=== PATIENT | male | born 1985 | race Caucasian/White ===

== ENCOUNTER 2019-12-28 11:33 | Emergency (ER) | payer BC, SELFPAY ==
[2019-12-28 12:26] VITALS: BP 132/79; PULSE 97; RESP 16; TEMP 37.3; O2SAT 98; BMI 36.6
[2019-12-28 12:56] LABS: Rapid Strep A Test Negative (Negative)
[2019-12-28 13:07] LABS: Influenza A by IFA Negative (Negative); Influenza B by IFA Negative (Negative)
--- NOTE | 2019-12-28 13:12 | ED_ITS ---
Entered by Lupe Arreguin, acting as scribe for Greer Alves Maritza Dec 28, 2019 11:33 HPI - Fever General: Chief Complaint: Fever Stated Complaint: Fever Time Seen by Provider: 12/28/19 13:12 Source: patient Mode of arrival: ambulatory Limitations: no limitations History of Present Illness: HPI Narrative: 34 yo Male presents to ED with complaint of cough, headache, congestion, and body aches. Pt states that this has been going on for 2 days. MD elicited complaint: fever Onset (ago): day(s) (2) Context: sick contacts and other(s) with similar symptoms Exacerbating factors: nothing Relieving factors: nothing Associated symptoms: Reports cough, headache(s), myalgias and nasal congestion; Deny abdominal pain, back/flank pain, chills, chest pain, diarrhea, dysuria, extremity pain, nausea or vomiting Treatments prior to arrival fever: none Review of Systems General: Reports: other (negative unless marked) Const: Reports: fever and body aches; Denies: chills, fatigue, malaise or diaphoresis Eyes: Denies: change in vision or blurry vision ENMT: Reports: nasal congestion Card: Denies: chest pain, palpitations, irregular heart rhythm, syncope, pre- syncope, shortness of breath on exertion or shortness of breath when lying down Resp: Denies: shortness of breath, productive cough, non-productive cough, wheezing, coughing up blood or chest congestion GI: Denies: abdominal pain, nausea, vomiting, vomiting blood, coffee grounds in vomit, diarrhea, constipation, cramping, blood in stool or black tarry stool : Denies: flank pain, difficulty urinating, painful urination, urinary frequency, urinary urgency, decreased urine ouput, urinary incontinence or blood in urine Musc: Denies: neck pain, back pain, extremity pain, extremity swelling, joint pain, joint swelling, joint warmth or joint stiffness Skin/Breast: Denies: rash, skin tenderness or yellow skin Neuro: Reports: headache Endo: Denies: excessive thirst, tired all the time, cold intolerance, excessive sweating, flushing or hot flashes Armaan/Lymph: Denies: easy bruising, easy bleeding, petechiae or enlarged lymph nodes All/Imm: Denies: hives, throat swelling, tongue swelling, facial swelling or acute wheezing PFS ED PFSH: Statuses (acute, chronic, etc) shown below reflect problem list status as previously entered and may not be historically accurate Social History Smoking and tobacco status: never smoked Physical Exam Const: COMMON NORMALS: no apparent distress, oriented x3, no limitations, healthy appearing and well nourished EXAM LIMITATIONS: no altered mental status GENERAL APPEARANCE: cooperative, well kempt and well developed ORIENTATION/CONSCIOUSNESS: Yes awake HENMT: COMMON NORMALS: normocephalic, head/scalp atraumatic, hearing grossly normal bilaterally, external ears normal, EAC's normal, external nose normal and moist oral mucous membranes HEAD & SCALP: normal to inspection, normocephalic and atraumatic FACE & SINUS: normal facial exam and face symmetric NOSE: external nose normal and nares normal EXTERNAL EAR: Yes external ears normal EXTERNAL AUDITORY CANAL: EAC's normal MOUTH: oral and palatal mucosa normal and tongue normal Eye: COMMON NORMALS: PERRL, EOMs intact bilaterally, conjunctivae normal and no scleral icterus GENERAL EYE: normal appearance of both eyes and normal light reflex CONJUNCTIVA: Yes conjunctivae normal SCLERA: sclerae normal CORNEA: Yes corneas normal PUPIL: Yes PERRL DIRECT OPHTHALMOSCOPY: Yes normal light reflex Neck/C-Spine: COMMON NORMALS: full ROM, no lymphadenopathy, supple, no meningeal signs and no JVD GENERAL: Yes normal visual inspection and Yes trachea midline CERVICAL SPINE: Yes cervical ROM normal Chest: COMMONS NORMALS: inspection of chest normal and palpation of chest normal Resp: COMMON NORMALS: normal respiratory effort, no retractions, no use of accessory muscles and clear to auscultation bilaterally EFFORT & INSPECTION: Yes able to speak in complete sentences AUSCULTATION: clear to auscultation bilaterally Cardio: COMMON NORMALS: no JVD, regular rate, regular rhythm, S1 normal heart sound, S2 normal heart sound, no gallops, no clicks, no murmurs and no rub JUGULAR VENOUS DISTENTION: no JVD RATE: regular rate RHYTHM: regular rhythm HEART SOUNDS: S1 normal and S2 normal GI: COMMON NORMALS: soft to palpation, non-tender, no hepatosplenomegaly and no masses INSPECTION: Yes normal to inspection PALPATION: Yes soft and Yes no hepatosplenomegaly : COMMON NORMALS: Yes no CVA tenderness BLADDER/KIDNEY EXAM: Yes no CVA tenderness Back/Pelvis: COMMON NORMALS: no CVA tenderness, thoracic and lumbar spine normal to inspection, no thoracic nor lumbar tenderness and thoraco-lumbar ROM normal Extremity: COMMON NORMALS: normal to inspection, full ROM, normal capillary refill, no joint enlargement, no clubbing, cyanosis or edema and no calf tenderness Neuro: COMMON NORMALS: oriented x3, CN's II-XII intact bilaterally, moves all extremities, no focal motor deficits and no sensory deficits noted MENINGEAL SIGNS: Yes no meningeal signs Psych: COMMON NORMALS: mental status grossly normal, thought process normal, cooperative, affect normal, speech normal and activity/motor behavior normal APPEARANCE: Yes well kempt SPEECH: Yes normal speech THOUGHT PROCESS: normal thought process Skin: COMMON NORMALS: no rashes or lesions noted, skin turgor normal, no jaundice, no petechiae and no mottling GENERAL SKIN EXAM: no rashes or lesions noted and turgor normal Course Vital Signs: Vital signs: Vital Signs Temperature 99.1 F 12/28/19 12:26 Pulse Rate 84 12/28/19 13:45 Respiratory Rate 18 12/28/19 13:45 Blood Pressure 141/83 12/28/19 13:45 Pulse Oximetry 98 12/28/19 13:45 MDM - Fever MDM Narrative: Medical decision making narrative: Mr. Arrington signs and symptoms are consistent with flu. His flu test is negative here but he comes in with 2 of his children who have similar symptoms and they test positive for influenza. I am going to go ahead and place him on Tamiflu and give him time off work. He agrees to return should his symptoms change or worsen. Lab Data: Labs: Lab Results 12/28/19 12/28/19 Range/Units 12:33 12:33 Influenza Type A A g Negative (Negative) POC Influenza B Ag Negative (Negative) Group A Strep Rapi d Negative (Negative) Discharge Plan Discharge Patient Disposition: Home, Self-Care Clinical Impression: Influenza Condition: Stable Prescriptions: New Tamiflu 75 mg capsule 75 mg PO Q12H 5 Days Qty: 10 RF: 0 Discharge Orders: Discharge Order (Routine); Ordered 12/28/19 Ordered By: Greer Alves Referrals: Deedee Lawrence DO [Physician] - 4-7 days Discharge Diet: Advance as tolerated Discharge Activity: Increase activity as tolerated Patient Instructions: Influenza (ED) Activity Restrictions/Additional Instructions: Please return to the ER immediately for any of the signs or symptoms listed on your discharge instruction sheets, worsening/changing of your symptoms, you are not getting better as quickly as expected, or for ANY other cause or concerns. Discharge Date/Time: 12/28/19 13:26 Coding Level of Care Code ED Data Support Specialist for Chg Fwd Exam Problem Focused The documentation recorded by the Kallie santiago Carmen, accurately reflects the service I personally performed and the decisions made by Joselyn castanon Eli N Dec 28, 2019 11:33
[2019-12-28 13:45] VITALS: BP 141/83; PULSE 84; RESP 18; O2SAT 98
== END 2019-12-28 13:26 | disposition home or self-care (01) ==
PROVIDERS: Nurse Practitioner Family; Emergency Provider Emergency Medicine
DX: J11.1 Influenza due to unidentified influenza virus with other respiratory manifestations (principal)
CPT/HCPCS: 87081; 87804; 87880; 99282

== ENCOUNTER 2020-04-18 14:23 | Emergency (ER) | payer BC, SELFPAY ==
[2020-04-18 15:01] VITALS: BP 124/81; PULSE 63; RESP 18; TEMP 36.8; O2SAT 98; BMI 31.1
== END 2020-04-18 16:27 | disposition left against medical advice (07) ==
PROVIDERS: Emergency Provider Emergency Medicine
DX: Z53.21 Procedure and treatment not carried out due to patient leaving prior to being seen by health care provider (principal)
CPT/HCPCS: 99281

== ENCOUNTER 2020-07-18 13:14 | Emergency (ER) | payer BC, SELFPAY ==
[2020-07-18 13:46] VITALS: BP 124/84; PULSE 60; RESP 14; TEMP 36.7; O2SAT 98; BMI 37.2
--- NOTE | 2020-07-18 13:56 | ED_ITS ---
HPI - Extremity Problem General: Chief complaint: Extremity Problem,Nontraumatic Stated complaint: finger swelling Time Seen by Provider: 07/18/20 13:49 History of Present Illness: HPI Narrative: Base of right index finger had a callus that developed an infection for couple days ago now is red and sore and tender. Tetanus is up-to-date was done 6 months ago MD Complaint: extremity swelling Onset (ago): day(s) Pain Consistency: constant Location: right and upper extremity Quality: aching Relieving factors: nothing Exacerbating factors: nothing Associated symptoms: Reports no associated symptoms; Deny chest pain, fever(s) or rash Review of Systems Const: Denies: fever(s), chills or body aches Eyes: Denies: change in vision or blurry vision ENMT: Denies: throat pain or nasal congestion Card: Denies: chest pain or dyspnea on exertion Resp: Denies: dyspnea, productive cough or non-productive cough GI: Denies: abdominal pain, nausea or vomiting : Denies: difficulty urinating Musc: Reports: extremity pain (Right index finger) Skin/Breast: Denies: rash Neuro: Denies: headache(s) Psych: Denies: anxiety or depression Armaan/Lymph: Denies: easy bruising PFSH ED PFSH: Social History Smoking and tobacco status: never smoked Physical Exam 2 Const: COMMON NORMALS: no acute distress, average body habitus and patient oriented x3 HENMT: COMMON NORMALS: normocephalic HEAD & SCALP: normal to inspection and normocephalic FACE & SINUS: normal facial exam Eye: COMMON NORMALS: conjunctivae normal GENERAL EYE: appearance normal, both eyes and all related structures CONJUNCTIVA: Yes conjunctivae normal Neck/C-Spine: COMMON NORMALS: no JVD Chest: COMMONS NORMALS: normal inspection of the chest Resp: COMMON NORMALS: normal respiratory effort and clear to auscultation bilaterally AUSCULTATION: clear to auscultation bilaterally Cardio: COMMON NORMALS: no JVD Extremity: COMMON NORMALS: normal to inspection and full ROM RIGHT UPPER EXTREMITY: Yes hand & digits (Right index finger with a sore and and erythema to the base on the underside of the finger palmar aspect tender to the touch no drainage no abscess) Neuro: COMMON NORMALS: patient oriented x3 Course Vital Signs: Vital signs: Vital Signs Temperature 98.0 F 07/18/20 13:46 Pulse Rate 60 07/18/20 13:46 Respiratory Rate 14 07/18/20 13:46 Blood Pressure 124/84 07/18/20 13:46 Pulse Oximetry 98 07/18/20 13:46 Discharge Plan Discharge Patient Disposition: Home Clinical Impression: Cellulitis Qualifiers: Site of cellulitis: extremity Site of cellulitis of extremity: finger Laterality: right Qualified Code(s): L03.011 - Cellulitis of right finger Condition: Stable Prescriptions: New Bactrim DS 800-160 mg tablet 1 tab PO BID 10 Days Qty: 20 RF: 0 tramadol 50 mg tablet 50 mg PO Q6H PRN (Reason: pain) Qty: 14 RF: 0 Discharge Orders: Discharge Order (Routine); Ordered 07/18/20 Ordered By: Zach Mccann Discharge Diet: Usual diet Discharge Activity: Increase activity as tolerated Patient Instructions: Cellulitis (ED) Activity Restrictions/Additional Instructions: Follow-up with medical provider as directed. Take medications as prescribed. Return to the ER or your medical provider if condition worsens. Please read and understand discharge instructions. If any questions ask please. Coding Level of Care Code ED Purchasing Administrative Assistant for Adal Fwratna Exam Comprehensive
== END 2020-07-18 14:04 | disposition home or self-care (01) ==
LOC: ER 14:07
PROVIDERS: Emergency Provider Nurse Practitioner Family
DX: L03.011 Cellulitis of right finger (principal)
CPT/HCPCS: 12345; 99281

== ENCOUNTER 2020-08-26 17:40 | Emergency (ER) | payer BC, SELFPAY ==
[2020-08-26 18:05] VITALS: BP 137/80; PULSE 100; RESP 16; TEMP 37.3; O2SAT 100; BMI 36.6
[2020-08-26] MEDS: sulfamethoxazole-trimeth DS 160-800 mg Tablet 1 TAB PO (19:20)
[2020-08-26] MEDS: lidocaine 1% INJ 20 mL 3 ML INTRADERMA (19:20)
--- NOTE | 2020-08-26 19:43 | W.ED.SKABFB ---
HPI - Skin/Abscess/Foreign Bdy General: Chief complaint: Skin/Abscess/Foreign Body Stated complaint: POSS SPIDER BITE/LLE Time Seen by Provider: 08/26/20 19:12 History of Present Illness: HPI narrative: Left leg behind the knee has redness swelling and tenderness possible brown recluse bite. complaint: insect bite/sting Onset (ago): day(s) Tetanus up to date: yes Location: LLE Severity: moderate Severity scale (1-10): 5 Quality: aching Associated symptoms: Reports no associated symptoms; Deny chills, fever(s), nausea or vomiting Treatments prior to arrival: attempted to drain pus at home Review of Systems Const: Denies: fever(s), chills or body aches Eyes: Denies: change in vision or blurry vision ENMT: Denies: throat pain or nasal congestion Card: Denies: chest pain or dyspnea on exertion Resp: Denies: dyspnea, productive cough or non-productive cough GI: Denies: abdominal pain, nausea or vomiting : Denies: difficulty urinating Musc: Denies: extremity pain Skin/Breast: Reports: skin tenderness and skin swelling (Behind left knee. Hard indurated does appear to be spider bite has a purple area to center I drained slight amount of pus out after lidocaine preparation); Denies: rash Neuro: Denies: headache(s) Psych: Denies: anxiety or depression Armaan/Lymph: Denies: easy bruising PFS ED PFSH: Social History Smoking and tobacco status: never smoked Physical Exam Const: COMMON NORMALS: no acute distress, average body habitus and patient oriented x3 HENMT: COMMON NORMALS: normocephalic HEAD & SCALP: normal to inspection and normocephalic FACE & SINUS: normal facial exam Eye: COMMON NORMALS: conjunctivae normal GENERAL EYE: appearance normal, both eyes and all related structures CONJUNCTIVA: Yes conjunctivae normal Neck/C-Spine: COMMON NORMALS: no JVD Chest: COMMONS NORMALS: normal inspection of the chest Resp: COMMON NORMALS: normal respiratory effort and clear to auscultation bilaterally AUSCULTATION: clear to auscultation bilaterally Cardio: COMMON NORMALS: no JVD, regular rate and regular rhythm RATE: regular rate RHYTHM: regular rhythm GI: COMMON NORMALS: Normal to inspection, nondistended, normoactive bowel sounds present Extremity: LEFT LOWER EXTREMITY: Yes upper leg (See review of system note on left leg redness swelling tenderness induration) Neuro: COMMON NORMALS: patient oriented x3 Procedures Abscess I/D Site: lower extremity Side (if applicable): left Local Anesthetic: lidocaine 1% Amount of anesthesia used (mL): 2 Technique: incised with #11 blade Amount of fluid expressed (mL): 2 Irrigation: Yes Packing used?: iodoform Course Vital Signs: Vital signs: Vital Signs Temperature 99.1 F 08/26/20 18:05 Pulse Rate 100 08/26/20 18:05 Respiratory Rate 16 08/26/20 18:05 Blood Pressure 137/80 08/26/20 18:05 Pulse Oximetry 100 08/26/20 18:05 Discharge Plan Discharge Patient Disposition: Home Clinical Impression: Cellulitis Qualifiers: Site of cellulitis: extremity Site of cellulitis of extremity: lower extremity Laterality: left Qualified Code(s): L03.116 - Cellulitis of left lower limb Condition: Stable Prescriptions: New Bactrim DS 800-160 mg tablet 1 tab PO BID 10 Days Qty: 20 RF: 0 tramadol 50 mg tablet 50 mg PO Q6H PRN (Reason: pain) Qty: 14 RF: 0 No Action tramadol 50 mg tablet 50 mg PO Q6H PRN (Reason: pain) Qty: 14 RF: 0 Discharge Orders: Discharge Order (Routine); Ordered 08/26/20 Ordered By: Zach Mccann Discharge Diet: Usual diet Discharge Activity: Increase activity as tolerated Patient Instructions: Cellulitis (ED) Activity Restrictions/Additional Instructions: Follow-up with medical provider as directed. Take medications as prescribed. Return to the ER or your medical provider if condition worsens. Please read and understand discharge instructions. If any questions ask please. Pull packing out 24 hours Stand Alone Forms: Work/School Release Discharge Date/Time: 08/26/20 20:02 Coding Level of Care Code ED Silk Screen Printing Racker for Adal Fwratna Exam Comprehensive
== END 2020-08-26 20:02 | disposition home or self-care (01) ==
PROVIDERS: Emergency Provider Nurse Practitioner Family
DX: L03.116 Cellulitis of left lower limb (principal)
CPT/HCPCS: 10060; 12345; 99281; 99283

== ENCOUNTER → 2021-01-10 11:25 | Outpatient (BNVA) | payer BC, SELFPAY | PROVIDERS: Visit Provider Nurse Practitioner Family | DX: Z20.822 Contact with and (suspected) exposure to COVID-19 (principal) | CPT/HCPCS: 87635 ==

== ENCOUNTER → 2021-02-11 16:07 | Outpatient (BNVA) | payer BC, SELFPAY | PROVIDERS: Visit Provider Nurse Practitioner Family | DX: M25.572 Pain in left ankle and joints of left foot (principal); L02.413 Cutaneous abscess of right upper limb | CPT/HCPCS: 73610; 87070; 87075; 87077; 87184; 87205 ==

== ENCOUNTER → 2021-03-06 11:40 | Outpatient (BNVA) | payer BC, SELFPAY | PROVIDERS: Visit Provider Family Medicine | DX: Z20.822 Contact with and (suspected) exposure to COVID-19 (principal) | CPT/HCPCS: 87635 ==

== ENCOUNTER 2021-04-30 07:05 | Inpatient (IN) | payer SELFPAY ==
[2021-04-30] VITALS (13 sets, daily range): BP systolic 112–124; BP diastolic 64–78; PULSE 73–88; RESP 16–22; TEMP 36.3–37.1; O2SAT 95–99; BMI 36.6
--- NOTE | 2021-04-30 07:08 | CTR_ITS ---
PROCEDURE INFORMATION: Exam: CTA Right Lower Extremity With Contrast Exam date and time: 04/30/2021 7:17 AM Age: 36 years old Clinical indication: Pain; Thigh; Right; Additional info: R leg only TECHNIQUE: Imaging protocol: CTA images of the Right lower extremity with intravenous contrast using CT angiography protocol. 3D rendering (Not supervised by radiologist): MIP and/or 3D reconstructed images were created by the technologist. Radiation optimization: All CT scans at this facility use at least one of these dose optimization techniques: automated exposure control; mA and/or kV adjustment per patient size (includes targeted exams where dose is matched to clinical indication); or iterative reconstruction. Contrast material: OMNI 350; Contrast volume: 95 ml; Contrast route: INTRAVENOUS (IV); COMPARISON: No relevant prior studies available. RADIATION DOSE METRICS: Total DLP (mGy-cm): 1536.52 FINDINGS: Vascular: Patency and normal caliber of the right lower extremity arteries. Bones/joints: No acute osseous pathology. Anatomic alignment. Lymph nodes: Right inguinal lymphadenopathy. Soft tissues: Extensive infiltration of subcutaneous fat in the right anterolateral pelvis, inguinal region, perineum, and medial thigh; along with skin thickening. No discrete soft tissue abscess is identified at this time. CT/[place] [id number] IMPRESSION: Extensive infiltration of subcutaneous fat in the right anterolateral pelvis, inguinal region, perineum, and medial thigh; along with skin thickening and inguinal lymphadenopathy. Radiation Dose CTDIVOL = (mGy): DLP = 1536.52 (mGy-cm)
--- NOTE | 2021-04-30 07:08 | USCV_ITS ---
Alvaro Arrington Age: 36 Gender: M : 1985 Exam Date: 04/30/2021 07:43 Ordering Phys: Munir Salazar DO Technologist: [facility] Exam Location: [facility] Indication: LEG EDEMA HISTORY: Lower extremity pain. PROCEDURES: Venous duplex imaging was performed in only the right lower extremity. The following venous structures were evaluated: common femoral vein, profunda vein, proximal portion of the greater saphenous vein, superficial femoral vein, and the popliteal vein. In addition, the posterior tibial and peroneal trunk were evaluated. Serial compression, augmentation maneuvers, and spectral Doppler flow evaluation were performed. FINDINGS: Normal 2-D Doppler and augmentation and compressibility throughout the lower extremity venous structures. Additional imaging through the proximal calf veins also reveals no thrombus. Limited evaluation of the greater saphenous vein is patent with no thrombus. CONCLUSIONS No DVT right lower extremity. Dr. Geneva Kwon DO (Electronically Signed) Final Date: 30 April 2021 09:31 S
--- NOTE | 2021-04-30 07:08 | CTR_ITS ---
PROCEDURE INFORMATION: Exam: CT Pelvis Without Contrast Exam date and time: 04/30/2021 7:17 AM Age: 36 years old Clinical indication: Hip pain; Right hip; Patient HX: Spider bite to RT medial femur; Additional info: Infection swelling TECHNIQUE: Imaging protocol: Computed tomography images of the pelvis without contrast. Radiation optimization: All CT scans at this facility use at least one of these dose optimization techniques: automated exposure control; mA and/or kV adjustment per patient size (includes targeted exams where dose is matched to clinical indication); or iterative reconstruction. COMPARISON: No relevant prior studies available. RADIATION DOSE METRICS: Total DLP (mGy-cm): 1128.06 FINDINGS: Stomach and bowel: Prominent stool. Appendix: No acute appendicitis. Intraperitoneal space: No free fluid. Lymph nodes: Right inguinal lymphadenopathy. Urinary bladder: Nondistended bladder. Reproductive: Unremarkable as visualized. Bones/joints: No acute osseous pathology. Anatomic alignment. Soft tissues: Extensive infiltration of subcutaneous fat in the right anterolateral pelvis, inguinal region, and perineum. Additional right-sided skin thickening is present, without a discrete soft tissue abscess. CT/CT pelvis [facility] [id number] IMPRESSION: 1. No acute osseous pathology. 2. Right inguinal lymphadenopathy. 3. Extensive infiltration of subcutaneous fat in the right anterolateral pelvis, inguinal region, and perineum. Radiation Dose CTDIVOL = (mGy): DLP = 1128.06 (mGy-cm)
--- NOTE | 2021-04-30 07:10 | W.ED.EXTPRO ---
HPI - Extremity Problem General: Chief complaint: Skin/Abscess/Foreign Body Stated complaint: SPIDER BITE Time Seen by Provider: 04/30/21 07:05 History of Present Illness: HPI Narrative: 36-year-old male presents emergency room with significant swelling of the medial proximal thigh on the right began over the last couple of days. He thought he had been bitten by a spider has an ulcerated area that is open and somewhat necrotic and draining. He has had fever as well as been on Bactrim for the last couple of days as well as mupirocin has gotten progressively worse to the point he called the ambulance morning he does have very impressive proximal swelling with induration of the skin and large amount of soft tissue edema. He is exquisitely tender to the touch. MD Complaint: extremity pain and extremity swelling Onset (ago): day(s) Pain Consistency: constant Location: right, lower extremity and other (Proximal medial thigh) Quality: aching Radiation: none Relieving factors: nothing Exacerbating factors: range of motion, weight bearing and palpation Associated symptoms: Reports arthralgias and myalgias; Deny chest pain, fever(s), rash or short of breath Review of Systems Const: Denies: fever(s) ENMT: Denies: throat pain, ear or mastoid pain, nasal discharge or nasal congestion Card: Denies: chest pain Resp: Denies: dyspnea, productive cough or non-productive cough GI: Denies: abdominal pain, nausea, vomiting, hematemesis, coffee ground emesis, diarrhea, constipation, bloating, hematochezia or melena : Denies: flank pain, dysuria, urinary frequency or urinary urgency Skin/Breast: Denies: rash [facility] ED PFSH: Social History Smoking and tobacco status: never smoked Second hand smoke exposure: Yes Alcohol intake: never Lives independently: Yes Household members: spouse Marital status: Current occupational status: employed 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[employer] History of recent travel: No Current gender identity: Male Physical Exam Const: COMMON NORMALS: no acute distress GENERAL APPEARANCE: cooperative and comfortable ORIENTATION/CONSCIOUSNESS: Yes awake, Yes oriented to person, Yes oriented to place and Yes oriented to time HENMT: COMMON NORMALS: normocephalic, atraumatic, hearing grossly normal bilaterally and external ears normal HEAD & SCALP: normocephalic and atraumatic EXTERNAL EAR: Yes external ears normal Neck/C-Spine: COMMON NORMALS: no JVD Resp: COMMON NORMALS: normal respiratory effort, No retractions, No use of accessory muscles and clear to auscultation bilaterally AUSCULTATION: clear to auscultation bilaterally Cardio: COMMON NORMALS: no JVD, regular rate, regular rhythm and No murmurs present (Cardio) RATE: regular rate RHYTHM: regular rhythm GI: COMMON NORMALS: Soft to palpation and No hepatosplenomegaly present AUSCULTATION: Yes normoactive bowel sounds PALPATION: Yes Soft to palpation, No Tenderness to palpation present (GI), No Guarding due to palpation present (GI) and Yes No hepatosplenomegaly present Extremity: NARRATIVE EXTREMITY EXAM: Proximal medial right thigh large amount of induration and soft tissue swelling no palpable abscess along the midportion of the groin crease there is an ulcerated area that is open with mucousy eschar no active purulent drainage. Neurovascularly intact distally. Neuro: SENSORIUM/ORIENTATION: Yes oriented to person, Yes oriented to place and Yes oriented to time Course Vital Signs: Vital signs: Vital Signs Temperature 98.4 F 04/30/21 07:08 Pulse Rate 79 04/30/21 07:08 Respiratory Rate 21 H 04/30/21 08:03 Blood Pressure 124/69 04/30/21 07:08 Pulse Oximetry 97 04/30/21 07:08 MDM - Extremity (Nontraumatic) MDM Narrative: Medical decision making narrative: Venous duplex negative, no abscess on the CT will admit with IV antibiotics discussed Dr. Palacios orders written Lab Data: Labs: Lab Results 04/30/21 04/30/21 04/30/21 Range/Units 07:50 07:50 07:50 WBC 19.6 H (4.0-10.0) 10^3/ uL RBC 4.00 L (4.1-5.3) 10^6/u L Hgb 11.6 L (11.7-16.6) g/dL Hct 33.7 L (42.0-52.0) % MCV 84.3 (80-94) fL MCH 29.0 (28.0-34.0) pg MCHC 34.4 (30.0-36.0) g/dL RDW 12.0 L (12.1-15.1) % Plt Count 257 (130-400) 10^3/c mm MPV 11.2 H (7.4-10.4) fL Neut % (Auto) 84.8 % Lymph % (Auto) 5.8 % [place] % (Auto) 7.2 % Eos % (Auto) 0.4 % Baso % (Auto) 0.5 % Neut # (Auto) 16.61 H (1.8-7.7) 10^3/u L Lymph # (Auto) 1.1 (0.8-4.8) 10^3/u L [place] # (Auto) 1.4 H (0.2-0.9) 10^3/u L Eos # (Auto) 0.1 (0.0-0.8) 10^3/u L Baso # (Auto) 0.1 (0.0-0.1) 10^3/u L Nucleated RBC % (a uto) 0 % Nucleated RBCs # 0.0 /100WBC Sodium 128 L (136-145) mmol/L Potassium 3.3 L (3.5-5.1) mmol/L Chloride 95 L (98-107) mmol/L Carbon Dioxide 24 (22-29) mmol/L Anion Gap 12.3 (5-19) BUN 19 (6-20) mg/dL Creatinine 0.7 (0.7-1.2) mg/dL GFR Calculation 129.1 (90-130) mL/min Glucose 123 H (65-115) mg/dL Calculated Osmolal ity 270 L (285-295) mOsm/k g Lactic Acid 1.2 (0.5-2.2) mmol/L Calcium 9.3 (8.5-10.5) mg/dL Total Bilirubin 0.4 (0.15-1.2) mg/dL AST 14 (0-40) U/L ALT 11 (0-41) U/L Alkaline Phosphata se 63 (40-130) IU/L Total Protein 6.9 (6.6-8.7) g/dL Albumin 2.7 L (3.5-5.2) g/dL Globulin 4.2 (1.3-4.6) g/dL Urine Color (Yellow) Urine Appearance (CLEAR) Urine pH (5-7) Ur Specific Gravit y (1.005-1.030) Urine Protein (Negative) Urine Glucose (UA) (Normal) Urine Ketones (Negative) Urine Blood (Negative) Urine Nitrate (Negative) Urine Bilirubin (Negative) Urine Urobilinogen (Negative) mg/dL Ur Leukocyte Reina ase (Negative) Urine RBC (0-2) /hpf Urine WBC (0-5) /hpf Ur Squamous Epith Cells (0-5) /hpf Amorphous Sediment Urine Bacteria (NONE) /hpf Fine Granular Cast s /lpf 04/30/21 Range/Units 08:23 WBC (4.0-10.0) 10^3/ uL RBC (4.1-5.3) 10^6/u L Hgb (11.7-16.6) g/dL Hct (42.0-52.0) % MCV (80-94) fL MCH (28.0-34.0) pg MCHC (30.0-36.0) g/dL RDW (12.1-15.1) % Plt Count (130-400) 10^3/c mm MPV (7.4-10.4) fL Neut % (Auto) % Lymph % (Auto) % [place] % (Auto) % Eos % (Auto) % Baso % (Auto) % Neut # (Auto) (1.8-7.7) 10^3/u L Lymph # (Auto) (0.8-4.8) 10^3/u L [place] # (Auto) (0.2-0.9) 10^3/u L Eos # (Auto) (0.0-0.8) 10^3/u L Baso # (Auto) (0.0-0.1) 10^3/u L Nucleated RBC % (a uto) % Nucleated RBCs # /100WBC Sodium (136-145) mmol/L Potassium (3.5-5.1) mmol/L Chloride (98-107) mmol/L Carbon Dioxide (22-29) mmol/L Anion Gap (5-19) BUN (6-20) mg/dL Creatinine (0.7-1.2) mg/dL GFR Calculation (90-130) mL/min Glucose (65-115) mg/dL Calculated Osmolal ity (285-295) mOsm/k g Lactic Acid (0.5-2.2) mmol/L Calcium (8.5-10.5) mg/dL Total Bilirubin (0.15-1.2) mg/dL AST (0-40) U/L ALT (0-41) U/L Alkaline Phosphata se (40-130) IU/L Total Protein (6.6-8.7) g/dL Albumin (3.5-5.2) g/dL Globulin (1.3-4.6) g/dL Urine Color Dark yellow (Yellow) Urine Appearance Clear (CLEAR) Urine pH 6.5 (5-7) Ur Specific Gravit y 1.000 L (1.005-1.030) Urine Protein Trace (Negative) Urine Glucose (UA) Norm (Normal) Urine Ketones Negative (Negative) Urine Blood 2+ H (Negative) Urine Nitrate Negative (Negative) Urine Bilirubin 1+ H (Negative) Urine Urobilinogen 8 H (Negative) mg/dL Ur Leukocyte Reina ase Negative (Negative) Urine RBC 5-10 H (0-2) /hpf Urine WBC None (0-5) /hpf Ur Squamous Epith Cells None (0-5) /hpf Amorphous Sediment Not Reportable Urine Bacteria Trace (NONE) /hpf Fine Granular Cast s Rare /lpf Discharge Plan Discharge Patient Disposition: Admitted As Inpatient Clinical Impression: Cellulitis, Hyponatremia Condition: Stable Coding Level of Care Code ED [place] 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
[2021-04-30] MEDS: iohexol 350 mg/mL 100 mL Btl IV (07:44)
[2021-04-30 07:58] LABS: Basophils # 0.1 10^3/uL (0.0-0.1); Basophils % 0.5 %; Eosinophils # 0.1 10^3/uL (0.0-0.8); Eosinophils % 0.4 %; Hematocrit 33.7 % (42.0-52.0); Hemoglobin 11.6 g/dL (11.7-16.6); Lymphocytes # 1.1 10^3/uL (0.8-4.8); Lymphocytes % 5.8 %; Mean Corpuscular HGB Conc 34.4 g/dL (30.0-36.0); Mean Corpuscular Volume 84.3 fL (80-94); Mean Platelet Volume 11.2 fL (7.4-10.4); Monocytes # 1.4 10^3/uL (0.2-0.9); Monocytes % 7.2 %; Neutrophils # 16.61 10^3/uL (1.8-7.7); Neutrophils % 84.8 %; Nucleated Red Blood Cells % 0 %; Platelet Count 257 10^3/cmm (130-400); White Blood Count 19.6 10^3/uL (4.0-10.0)
[2021-04-30] MEDS: morphine 4 mg/mL SDV 1 mL IVP (08:03)
[2021-04-30] MEDS: vancomycin 1,000 MG in sodium chloride 0.9% 250 ML 250 MG IV (08:13)
[2021-04-30 08:15] LABS: Alanine Aminotransferase 11 U/L (0-41); Albumin Level 2.7 g/dL (3.5-5.2); Alkaline Phosphatase 63 IU/L (40-130); Anion Gap 12.3 (5-19); Aspartate Amino Transferase 14 U/L (0-40); Blood Urea Nitrogen 19 mg/dL (6-20); Calcium 9.3 mg/dL (8.5-10.5); Carbon Dioxide 24 mmol/L (22-29); Chloride 95 mmol/L (98-107); Globulin 4.2 g/dL (1.3-4.6); Glomerular Filtration Rate 129.1 mL/min (90-130); Glucose 123 mg/dL (65-115); Osmolality Calculated 270 mOsm/kg (285-295); Potassium 3.3 mmol/L (3.5-5.1); Sodium 128 mmol/L (136-145); Total Bilirubin 0.4 mg/dL (0.15-1.2); Total Protein 6.9 g/dL (6.6-8.7)
[2021-04-30 08:16] LABS: Lactic Sepsis W/Reflex 1.2 mmol/L (0.5-2.2)
[2021-04-30] MEDS: potassium chloride oral liq 20 mEq/15 mL UDC 40 MEQ PO (08:43)
[2021-04-30 08:50] LABS: Add Urine Microscopic? YES; Bilirubin Urine 1+ (Negative); Blood Urine 2+ (Negative); Glucose Urine UA Norm (Normal); Ketones Urine Negative (Negative); Leukocyte Esterase Urine Negative (Negative); Nitrate Urine Negative (Negative); Protein Urine Trace (Negative); Urine Appearance Clear (CLEAR); Urine Color Dark Yellow (Yellow); Urobilinogen Urine 8 mg/dL (Negative); pH Urine 6.5 (5-7)
[2021-04-30 08:51] LABS: Add Urine Culture? No; Bacteria Urine TRACE /hpf; Fine Granular Casts Urine RARE /lpf
[2021-04-30 09:32] LABS: Estmated Average Glucose 97
[2021-04-30 09:40] LABS: Magnesium 2.6 mg/dL (1.7-2.3); Thyroid Stimulating Hormone 0.53 uIU/mL (0.27-4.20)
--- NOTE | 2021-04-30 10:22 | PM.HP ---
Providers/Chief Complaint Admitting Physician: Watson Lowe MD Chief Complaint: SPIDER BITE History of Present Illness Alvaro Arrington is a 36 year old male who presents from home to the emergency department with complaints of infection in his right leg. He reports it has been there for 3 days. He is not for sure what caused that, but he had a boil on his leg that is since burst. It is now red and tight around the area and very painful. He has had no vomiting. He does believe he has had fevers at home although he has not been able to take his temperature. He has felt chills. Reports he started some antibiotic that he had at home he believes was around 500 mg and has been taking it twice a day. He is not for sure what the name of the medication is. He has had a past history of MRSA. While in the emergency department he was given morphine for pain, potassium for low potassium and vancomycin IV. He denies a family history of diabetes although he reports this runs in his family. Review of Systems General: Reports: 10 or more systems reviewed and unremarkable except in HPI and below Const: Reports: fever(s) and chills Eyes: Denies: change in vision ENMT: Denies: throat pain Card: Denies: chest pain Resp: Denies: dyspnea GI: Denies: abdominal pain, nausea, vomiting, hematochezia or melena : Denies: flank pain or difficulty urinating Musc: Reports: extremity pain; Denies: neck pain Skin/Breast: Reports: rash Neuro: Denies: headache(s) Psych: Reports: depression (Denies any suicidal ideation) and other (Insomnia); Denies: anxiety Endo: Denies: polyuria Armaan/Lymph: Denies: easy bruising All/Imm: Denies: urticaria Medications/Allergies Home Medications Medication Instructions Recorded Confirmed Last Taken Type mupirocin 2 % topical ointment 1 applic TOPICAL BID #22 g 02/11/21 02/11/21 Unknown Rx sulfamethoxazole 800 1 tab PO BID 10 Days #20 tab 02/11/21 02/11/21 Unknown Rx mg-trimethoprim 160 mg tablet Allergies Allergy/AdvReac Type Severity Reaction Status Date / Time topiramate [From Topamax] Allergy Unknown Verified 02/11/21 15:39 PFSH Acute PFSH: Surgical History (Updated 04/30/21 @ 10:26 by Watson Lowe MD) History of carpal tunnel surgery Left wrist History of foot surgery History of hand surgery Reconstruction, left hand Family History (Updated 04/30/21 @ 10:26 by Watson Lowe MD) Other Cancer Diabetes Social History Smoking and tobacco status: never smoked Second hand smoke exposure: Yes Alcohol intake: never Lives independently: Yes Household members: spouse Marital status: Current occupational status: employed 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 HEENT: Atraumatic and normocephalic. Pupils equally round and reactive. Oropharynx is clear. Neck is supple no lymphadenopathy or thyromegaly Cardiovascular regular rate and rhythm without murmur Lungs clear no wheezing or crackles Abdomen is soft, obese. No obvious organomegaly demonstrates normal male with normal scrotum Extremities no cyanosis or clubbing. Right lower extremity, inner thigh has a white eschar with fibrinous tissue and a large area of surrounding erythema. There is induration, increased pain to palpation, and increased warmth all consistent with cellulitis. The area of cellulitis was marked on the borders by myself at the time of exam on April 30. Distal pulses intact. Cap refill brisk. Skin see findings above Neuro no focal deficits. Data : 04/30/21 07:50 04/30/21 07:50 Micro: Microbiology 04/30/21 07:50 Blood Culture - Preliminary Blood SPECIMEN COLLECTED 04/30/21 07:52 Blood Culture - Preliminary Blood SPECIMEN COLLECTED Other data: Venous duplex of right lower extremity is negative for DVT Lower extremity CTA was done which demonstrated extensive infiltration of subcutaneous fat and inguinal lymphadenopathy and pelvis CT demonstrated no osseous pathology, right inguinal adenopathy. No definitive abscess was found on either study. Hemoglobin A1c which I ordered from emergency department lab was 5.0. LFTs were normal Magnesium 2.6 TSH 0.5 Urinalysis 5-10 reds otherwise negative A&P Assessment and plan (1) Cellulitis: Vancomycin initiated in the emergency department. We will continue. Blood cultures were drawn there which is appropriate. Lactate was normal No current criteria for sepsis. Status: Acute (2) Hyponatremia: Slightly decreased. Will recheck in the morning. No evidence of fluid overload or dehydration on exam currently. TSH also checked and normal. Status: Acute (3) Hypokalemia: Supplemented in the emergency department. Note that magnesium level was normal. Status: Acute (4) Hyperglycemia: Hemoglobin A1c checked and normal. Status: Acute (5) Obesity: Counseling will occur. Status: Acute Additional A&P Information Full code Lovenox for DVT prophylaxis Attestations Medical Necessity Statement*: Will need greater than 2 midnight stay for IV antibiotics secondary to extensive nature of cellulitis, and potential for abscess formation. Time Spent in Patient Care: Greater than 35 minutes Coding Level of Care Code Acute Curve Saw Operator for [facility] Fwd Diagnoses Cellulitis L03.90 Hyponatremia E87.1 Hypokalemia E87.6 Hyperglycemia R73.9 Obesity E66.9
[2021-04-30] MEDS: HYDROcodone-acetaminophen 5-325 mg Tablet 1 TAB PO ×3 (11:11→19:52)
[2021-04-30] MEDS: morphine 4 mg/mL SDV 1 mL 2 MG IVP (13:33)
[2021-04-30] MEDS: sodium chloride 0.9% 1,000 ML 999 ML IV (13:33)
[2021-04-30] MEDS: enoxaparin 40 mg/0.4 mL Syringe SUBCUT (13:35)
[2021-04-30] MEDS: HYDROmorphone 1 mg/mL INJ 1 mL IVP ×2 (16:07→21:34)
[2021-04-30] MEDS: ondansetron 2 mg/ML SDV 2 mL 4 MG IVP (17:21)
[2021-04-30] MEDS: sodium chlor 0.9% + KCl 20 mEq 20 MEQ/1,000 ML BAG 100 MEQ IV (19:51)
[2021-04-30] MEDS: promethazine 25 mg/mL SDV 1 mL IM (19:52)
[2021-04-30] MEDS: trazodone 100 mg Tablet PO (20:08)
[2021-05-01] VITALS (10 sets, daily range): BP systolic 117–130; BP diastolic 69–81; PULSE 79–87; RESP 12–19; TEMP 36.6–37.1; O2SAT 92–98
[2021-05-01] MEDS: ondansetron 2 mg/ML SDV 2 mL 4 MG IVP (02:16)
[2021-05-01] MEDS: HYDROcodone-acetaminophen 5-325 mg Tablet 1 TAB PO (02:16)
[2021-05-01] MEDS: HYDROmorphone 1 mg/mL INJ 1 mL IVP (03:23)
[2021-05-01 06:01] LABS: Basophils # 0.1 10^3/uL (0.0-0.1); Basophils % 0.6 %; Eosinophils # 0.1 10^3/uL (0.0-0.8); Eosinophils % 0.6 %; Hematocrit 33.8 % (42.0-52.0); Hemoglobin 11.2 g/dL (11.7-16.6); Lymphocytes # 1.8 10^3/uL (0.8-4.8); Lymphocytes % 11.4 %; Mean Corpuscular HGB Conc 33.1 g/dL (30.0-36.0); Mean Corpuscular Hemoglobin 28.9 pg (28.0-34.0); Mean Corpuscular Volume 87.1 fL (80-94); Mean Platelet Volume 10.8 fL (7.4-10.4); Monocytes # 1.2 10^3/uL (0.2-0.9); Monocytes % 7.6 %; Neutrophils # 12.07 10^3/uL (1.8-7.7); Neutrophils % 78.2 %; Nucleated Red Blood Cells % 0 %; Platelet Count 305 10^3/cmm (130-400); Red Blood Count 3.88 10^6/uL (4.1-5.3); Red Cell Distribution Width 12.5 % (12.1-15.1); White Blood Count 15.4 10^3/uL (4.0-10.0)
[2021-05-01 06:21] LABS: Blood Urea Nitrogen 11 mg/dL (6-20); Calcium 9.1 mg/dL (8.5-10.5); Carbon Dioxide 26 mmol/L (22-29); Chloride 102 mmol/L (98-107); Glomerular Filtration Rate 154.2 mL/min (90-130); Glucose 102 mg/dL (65-115); Osmolality Calculated 284 mOsm/kg (285-295); Sodium 137 mmol/L (136-145)
[2021-05-01] MEDS: HYDROcodone-acetaminophen 5-325 mg Tablet 2 TAB PO ×4 (09:12→22:24)
[2021-05-01] MEDS: sodium chlor 0.9% + KCl 20 mEq 20 MEQ/1,000 ML BAG 30 MEQ IV (09:14)
[2021-05-01] MEDS: enoxaparin 40 mg/0.4 mL Syringe SUBCUT (09:15)
--- NOTE | 2021-05-01 09:51 | P.PN_ITS ---
Subjective Subjective: Interval history: Alvaro had some nausea and vomiting yesterday after admission. He denied any specific abdominal pain. Today he has some loose stool, and his C. difficile toxin is being sent. He reports his leg is somewhat better. Pain is under control currently. Medications: Reviewed: Yes Vitals/I&O/Wt Last Vital Signs Temp 98.8 F 05/01/21 07:13 Pulse 82 05/01/21 07:13 Resp 16 05/01/21 07:13 BP 123/75 05/01/21 07:13 Pulse Ox 96 05/01/21 07:13 04/30/21 05/01/21 05/01/21 22:59 06:59 14:59 Intake Total 980 / 2470 1410.667 / 3880.667 699.5 / 699.5 Output Total 375 / 375 475 / 850 200 / 200 Balance 605 / 2095 935.667 / 3030.667 499.5 / 499.5 Weight last 48 hrs Weight 122.47 kg Physical Exam Narrative: EXAM NARRATIVE: General exam is no apparent distress Neck is supple no lymphadenopathy or thyromegaly Cardiovascular regular rate and rhythm without murmur Lungs clear no wheezing or crackles Abdomen is soft, obese. No obvious organomegaly Extremities no cyanosis or clubbing. Right lower extremity, inner thigh has a white eschar with fibrinous tissue and surrounding area of erythema that appears to be receding from the border somewhat. Data : 05/01/21 05:38 05/01/21 05:38 Micro: Microbiology 04/30/21 07:52 Blood Culture - Preliminary Blood NEGATIVE TO DATE 04/30/21 07:50 Blood Culture - Preliminary Blood NEGATIVE TO DATE A&P Assessment and plan (1) Cellulitis: Vancomycin initiated in the emergency department. He appears to be improving. Continue vancomycin. Blood cultures negative to date Lactate was normal No current criteria for sepsis. Status: Acute (2) Hyponatremia: Resolved TSH also checked and normal. Status: Acute (3) Hypokalemia: Supplemented in the emergency department. Note that magnesium level was normal. Potassium level normal today. Status: Acute (4) Hyperglycemia: Hemoglobin A1c checked and normal. Status: Acute (5) Obesity: Counseling will occur. Status: Acute Additional A&P Information Diarrhea. Check C. difficile toxin Nausea. Change Dilaudid to morphine. Encourage use of p.o. pain medication instead of IV. Full code Lovenox for DVT prophylaxis Attestations Medical Necessity Statement*: Needs continued hospitalization for IV antibiotics related to cellulitis. 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
--- NOTE | 2021-05-01 11:06 | PC.NURSE ---
pt reported he felt pain and asked for pain meds, reported this to nurse
--- NOTE | 2021-05-01 11:06 | PC.CHAP ---
Pastoral Care Encounter/Spiritual Assessment Type of Contact [] Declined teaching young visit [] Patient/Family/Request visit [] Outpatient visit [x] Follow-up visit [] Physician referral [] Code/Alert [] Routine visit [] Staff referral [] Actively dying [] Patient sleeping [] Family support [] [] Out of room [] Palliative care [] [] Receiving care in room [] Pre-surgical visit [] Trauma [] Long length of stay [] ICU visit [] Other: Relational/Emotional Strength [x] Patient feels connected with others/family/visitors/staff [] Distress [] Loneliness/isolation [] Abandonment Spirituality of Patient [] Person of Rubi [] Attends Gnosticism of their Rubi [] Believes in Prayer [] Reads Bible or Hindu materials [] There are Spiritual issues to be addressed Digital Composer Interventions [] Prayer [] Active listening [] Non-anxious presence [] Spiritual/emotional support [] Crisis/trauma care [x] Spiritual counseling [] Bereavement support [] Provided bereavement packet [] Provided Bible/devotional materials [] Provided toy/stuffed animal, coloring book to patient or family member [] Provided Communion [] Anointing/[place] [] Salvation [x] Completed spiritual assessment [] Other: Impact on Illness or Injury [] Angry [] Fearful [] Anxious [] Often cries [] Exhaustion [] Unable to work [] Unable to attend muslim [] Unable to walk/stand [] Unable to read [] Unable to drive [] Unable to eat/drink [] Unable to sleep [] Unable to be with family [] Patient intubated [] Other: Summary Follow-up visit Time spent with patient 6 mins
[2021-05-01] MEDS: morphine 4 mg/mL SDV 1 mL 2 MG IVP ×2 (11:44→19:33)
--- NOTE | 2021-05-01 11:45 | USCV_ITS ---
Alvaro Arrington Age: 36 Gender: M : 1985 Exam Date: 05/01/2021 13:37 Ordering Phys: Watson Lowe MD Technologist: Manju Santoyo Exam Location: [facility] [place], [place] Indication: Heart murmur, positive blood culture BP: 130 / 81 HR: 83 Rhythm: Sinus Technical Quality: Suboptimal MEASUREMENTS (Male / Female) Normal Values 2D ECHO LV Chamber Size 4.4 cm RV Chamber Size 2.5 cm LVOT Diameter 2.0 cm LV Ejection Fraction MOD 2C 78.3 % LV Ejection Fraction 2C AL 78.2 % LA Diameter 2.8 cm LA Width 3.1 cm LA Height 4.5 cm RA Width 3.6 cm RA Height 4.1 cm M-MODE LV Diastolic Diameter MM 7.7 cm 4.2 - 5.9 / 3.9 - 5.3 cm LV Systolic Diameter MM 4.7 cm LV Ejection Fraction MM Teich 67.9 % IVS Diastolic Thickness MM 1.2 cm 0.6 - 1.0 / 0.6 - 0.9 cm IVS Systolic Thickness MM 1.8 cm LVPW Diastolic Thickness MM 1.2 cm 0.6 - 1.0 / 0.6 - 0.9 cm LVPW Systolic Thickness MM 1.6 cm Aortic Annulus Diameter 3.2 cm LA Ao Ratio MM 0.9 DOPPLER AV Peak Velocity 154.0 cm/s LVOT Peak Velocity 127.0 cm/s AV Area Cont Eq vti 2.7 cm squared AV Area Cont Eq pk 2.6 cm squared MV Area PHT 3.3 cm squared Mitral E to A Ratio 1.2 MV E' Velocity 58.0 cm/s Mitral E to MV E' Ratio 7.3 Mitral E to LV E' Lateral Ratio 6.9 Mitral E to LV E' Septal Ratio 7.8 TV Peak E Velocity 85.0 cm/s Right Atrial Pressure 3.0 mmHg FINDINGS Left Ventricle Normal left ventricular size and systolic function, EF 69 %. No regional wall motion abnormalities. Right Ventricle The right ventricle is normal in size and function. Right Atrium The right atrium is normal in size. Left Atrium The left atrium is normal in size. Mitral Valve Trace mitral valve regurgitation. Aortic Valve No gross abnormalities noted Tricuspid Valve No gross abnormalities noted Pulmonic Valve No pulmonic regurgitation. Pericardium Normal pericardium without effusion. Aorta Normal ascending aorta dimension. CONCLUSIONS Normal left ventricular size and systolic function, EF 69 %. No regional wall motion abnormalities. No significant stenotic or regurgitant lesions in the valves. Trace mitral valve regurgitation. No intracardiac masses or vegetations No evidence of intracardiac shunts, by color flow Doppler examination. No previous study is available for comparison. Technically somewhat difficult study because of the suboptimal parasternal views Dr Ave Phan MD FAC (Electronically Signed) Final Date: 01 May 2021 18:13 S
[2021-05-01 14:11] LABS: Vancomycin Trough 15.8 ug/mL (10-15)
[2021-05-01] MEDS: sennosides-docusate Tablet 1 TAB PO (17:43)
[2021-05-01] MEDS: trazodone 100 mg Tablet PO (20:54)
[2021-05-02] VITALS: BP 110/67; PULSE 70; RESP 14; TEMP 36.8; O2SAT 98
[2021-05-02] MEDS: HYDROcodone-acetaminophen 5-325 mg Tablet 2 TAB PO ×3 (02:07→10:47)
[2021-05-02 04:00] VITALS: BP 129/75; PULSE 68; RESP 25; TEMP 37.3; O2SAT 97
[2021-05-02] MEDS: sodium chlor 0.9% + KCl 20 mEq 20 MEQ/1,000 ML BAG 50 MEQ IV (04:51)
[2021-05-02 05:27] LABS: Hematocrit 34.5 % (42.0-52.0); Hemoglobin 11.3 g/dL (11.7-16.6); Mean Corpuscular HGB Conc 32.8 g/dL (30.0-36.0); Mean Corpuscular Hemoglobin 29.1 pg (28.0-34.0); Mean Corpuscular Volume 88.9 fL (80-94); Mean Platelet Volume 10.6 fL (7.4-10.4); Platelet Count 319 10^3/cmm (130-400); Red Blood Count 3.88 10^6/uL (4.1-5.3); Red Cell Distribution Width 12.6 % (12.1-15.1); White Blood Count 14.3 10^3/uL (4.0-10.0)
[2021-05-02 05:41] LABS: Anion Gap 9.9 (5-19); Blood Urea Nitrogen 9 mg/dL (6-20); Calcium 9.1 mg/dL (8.5-10.5); Carbon Dioxide 27 mmol/L (22-29); Chloride 103 mmol/L (98-107); Glomerular Filtration Rate 129.1 mL/min (90-130); Glucose 105 mg/dL (65-115); Osmolality Calculated 281 mOsm/kg (285-295); Potassium 3.9 mmol/L (3.5-5.1); Sodium 136 mmol/L (136-145)
[2021-05-02] MEDS: ondansetron 2 mg/ML SDV 2 mL 4 MG IVP (05:46)
[2021-05-02 06:14] LABS: Slide Review Slide Review Perform
[2021-05-02 06:16] LABS: Total Cells Counted 100 (0-100)
[2021-05-02 06:17] LABS: Absolute Eosinophils 0.2 10^3/cmm (0.0-0.7); Absolute Segmented Neutrophil 10.2 10/cmm (1.6-7.1); Eosinophils 2 %; Lymphocytes 18 %; Lymphocytes Absolute 2.9 10^3/cmm (1.2-3.4); Monocytes Absolute 0.9 10^3/cmm (0.1-0.6); Segmented Neutrophils 71 %
[2021-05-02 06:18] LABS: Absolute Neutrophil 10.2 10^3/cmm (1.4-6.5); Platelet Estimate Normal (Normal)
[2021-05-02 07:19] VITALS: BP 136/82; PULSE 88; RESP 18; TEMP 36.8; O2SAT 99
[2021-05-02] MEDS: sennosides-docusate Tablet 1 TAB PO (08:30)
[2021-05-02 08:34] VITALS: RESP 17
[2021-05-02] MEDS: morphine 4 mg/mL SDV 1 mL 2 MG IVP (08:34)
--- NOTE | 2021-05-02 10:18 | DCPLANNER ---
Attempting to make pt an appt at the [facility] in [place]. Left message requesting return call. [phone].
--- NOTE | 2021-05-02 10:26 | PM.DCS ---
Discharge Providers Date of Admission: 04/30/21 08:35 Date of Discharge: May 02, 2021 Attending Provider at Admission: Watson Lowe MD Attending Provider at Discharge: Watson Lowe MD Diagnoses at Discharge Discharge Diagnosis (1) Cellulitis: Status: Acute (2) Hyponatremia: Status: Acute (3) Hypokalemia: Status: Acute (4) Hyperglycemia: Status: Acute (5) Obesity: Status: Acute Reason for Visit Reason for Visit: SPIDER BITE Hospital Course Hospital Course Mr. Arrington presented to the hospital with an extensive cellulitis right thigh. He was not febrile on admission but reports he may have been at home. Blood cultures were drawn and the patient was started on IV vancomycin. As blood sugar was slightly high, a hemoglobin A1c was performed which was 5.0. During the patient's hospital course he had no fevers. White blood cell count decreased, to approximately 14 at discharge from a peak of approximately 20. Initial blood cultures drawn ultimately were growing 1 out of 4 bottles gram-positive cocci. 2 days in a row growth did not increase to any more bottles and this was thought likely to be contaminant. However, a transthoracic echo was done while in the hospital when blood cultures first turned positive which did not demonstrate any obvious vegetation or cardiac abnormality. On May 02 patient reported he was ready to go home. His leg felt better and he was up and about. Secondary to his past history of MRSA he will be discharged on Bactrim. I called microbiology lab again to confirm but only 1 out of 4 bottles were growing any bacteria. This had not changed from the previous day. At this point he will be discharged home with close follow-up.He is to return for any fever, abscess formation. This was discussed in detail with patient. I also discussed with him his 1 out of 4 bottles of blood culture that is positive. We discussed that this is likely contaminant and that it should be followed up closely as an outpatient. Physical Exam Narrative: EXAM NARRATIVE: General exam no apparent distress Cardiovascular regular rate and rhythm without murmur Lungs clear Abdomen is soft with positive bowel sounds Extremities no cyanosis clubbing or edema, erythema greatly improved with marked improvement from margins from marked area of cellulitis. Discharge Data Data Completed and Pending: Completed Studies During Hospitalization Category Date Time Status CT angio LE BI [id number] Stat Cat Scan 04/30/21 07:[address] pelvis wo con [id number] Stat Cat Scan 04/30/21 07:08 Completed CV echo complete* [id number] Routine Ultrasound 05/01/21 11:45 [place] [id number] Stat Ultrasound 04/30/21 07:08 Completed Pending at discharge Category Date Time Status Blood Culture Sta t Lab 04/30/21 07:50 Results Blood Culture Sta t Lab 05/01/21 11:59 Results Labs from last 24 hours 05/02/21 05/02/21 05/01/21 04:36 04:36 13:38 WBC 14.3 H RBC 3.88 L Hgb 11.3 L Hct 34.5 L MCV 88.9 MCH 29.1 MCHC 32.8 RDW 12.6 Plt Count 319 MPV 10.6 H Lymph % (Auto) Not Reportable [place] % (Auto) Not Reportable Lymph # (Auto) Not Reportable [place] # (Auto) Not Reportable Total Counted 100 Atypical Lymphs % 2.0 Absolute Neutrophi ls 10.2 H Segmented Neutroph ils 71 Abs Segm Neuts (Ma n) 10.2 H Band Neutrophils 0.0 Abs Band Neuts (Ma n) 0.0 Absolute Lymphocyt es 2.9 Lymphocytes (Manua l) 18 Monocytes (Manual) 6.0 Absolute Monocytes 0.9 H Eosinophils (Manua l) 2 Absolute Eosinophi ls 0.2 Basophils (Manual) 0.0 Absolute Basophils 0.0 Metamyelocytes 0.0 Myelocytes 1.0 Promyelocytes 0.0 Nucleated RBCs 1.0 Platelet Estimate Normal Sodium 136 Potassium 3.9 Chloride 103 Carbon Dioxide 27 Anion Gap 9.9 BUN 9 Creatinine 0.7 GFR Calculation 129.1 Glucose 105 Calculated Osmolal ity 281 L Calcium 9.1 Vancomycin Trough 15.8 H Vitals: Last Vital Signs Temp 98.3 F 05/02/21 07:19 Pulse 88 05/02/21 07:19 Resp 17 05/02/21 08:34 BP 136/82 05/02/21 07:19 Pulse Ox 99 05/02/21 07:19 Discharge Plan Discharge Patient Disposition: Home Condition: Stable Prescriptions: New hydrocodone-acetaminophen 5-325 mg tablet 1 tab PO Q6H PRN (Reason: pain) Qty: 10 RF: 0 Bactrim DS 800-160 mg tablet 1 tab PO DAILY 10 Days Qty: 20 RF: 0 Discharge Orders: Discharge Order (Routine); Ordered 05/02/21 Ordered By: Watson Lowe Discharge Diet: Regular Discharge Activity: Increase activity as tolerated Patient Instructions: Cellulitis, Sulfamethoxazole/Trimethoprim (By mouth), Hydrocodone/Acetaminophen (By mouth), Insect Bite or Sting (GEN), Opioid Safety Activity Restrictions/Additional Instructions: Follow-up with your primary care provider 3 to 5 days. Return for any fever, development of abscess, or any other concerns. Discharge planning to arrange for primary care provider prior to discharge. Discharge Attestations Time Spent in Discharge Care*: greater than 30 min Quality Metrics Clinical Quality Measures During this hospital stay, did patient experience: None Coding Level of Care Code Acute [facility] note Diagnoses Cellulitis L03.90 Hyponatremia E87.1 Hypokalemia E87.6 Hyperglycemia R73.9 Obesity E66.9
[2021-05-02] MEDS: enoxaparin 40 mg/0.4 mL Syringe SUBCUT (10:47)
[2021-05-02 11:12] VITALS: BP 130/93; PULSE 85; RESP 18; TEMP 37.1; O2SAT 96
--- NOTE | 2021-05-02 12:03 | PC.NURSE ---
Patient educated on discharge instructions, follow up appointment, and medications. Medications to be picked up at [facility] pharmacy. Instructed on worsening symptoms and when to come back to the ER. IV discontinued, tip of catheter intact, and patient tolerated well. Patient wheeled out via wheel chair to private vehicle driven by girlfriend.
[2021-05-02 12:05] VITALS: BP 130/93; PULSE 85; RESP 18; TEMP 37.1; O2SAT 96
== END 2021-05-02 11:30 | disposition home or self-care (01) | DRG 603 ==
LOC: ER 09:31 → MEDSURG 09:42
PROVIDERS: Admitting Provider Internal Medicine; Emergency Provider Family Medicine; Visit Provider Internal Medicine
DX: L03.115 Cellulitis of right lower limb (principal); E87.1 Hypo-osmolality and hyponatremia; Z86.14 Personal history of Methicillin resistant Staphylococcus aureus infection; E87.6 Hypokalemia; Z77.22 Contact with and (suspected) exposure to environmental tobacco smoke (acute) (chronic); R73.9 Hyperglycemia, unspecified; E66.9 Obesity, unspecified; Z68.36 Body mass index [BMI] 36.0-36.9, adult; R01.1 Cardiac murmur, unspecified
CPT/HCPCS: 36415; 72192; 73706; 80048; 80053; 80202; 81001; 83036; 83605; 83735; 84443; 85007; 85025; 87040; 87205; 93306; 93971; 96365; 96372; 96375; 99285; J1170; J1650; J2270; J2405; J2550; J3370; J7030; J7040; J7050; Q9967

== ENCOUNTER → 2021-06-23 14:57 | Outpatient (BNVA) | payer OTHER, SELFPAY | PROVIDERS: Visit Provider Nurse Practitioner Family | DX: Z20.822 Contact with and (suspected) exposure to COVID-19 (principal) | CPT/HCPCS: 87635 ==

== ENCOUNTER 2021-07-11 16:36 | Emergency (ER) | payer SELFPAY ==
[2021-07-11 17:25] VITALS: BP 124/83; PULSE 106; RESP 19; TEMP 36.7; O2SAT 96
--- NOTE | 2021-07-11 17:47 | XRR_ITS ---
PROCEDURE INFORMATION: Exam: XR Chest Exam date and time: 07/11/2021 5:47 PM Age: 36 years old Clinical indication: Cough; Patient HX: SOB covid pos; Additional info: SOB, covid + TECHNIQUE: Imaging protocol: XR of the chest. Views: 1 view. COMPARISON: No relevant prior studies available. FINDINGS: Lungs: Areas of curvilinear atelectasis at the lung bases. No focal consolidation. Pleural spaces: Unremarkable. No pleural effusion. No pneumothorax. Heart/Mediastinum: Unremarkable. No cardiomegaly. Bones/joints: Unremarkable. XR/XR chest 1V portable [id number] IMPRESSION: Areas of curvilinear atelectasis at the lung bases. No focal consolidation.
--- NOTE | 2021-07-11 17:52 | W.ED.COVID ---
HPI - COVID General: Chief Complaint: COVID symptoms Stated Complaint: COVID +/COUGHING UP BLOOD/SENT FROM [facility] Time Seen by Provider: 07/11/21 17:47 Triage information: No fever, cough or shortness of breath. No known COVID + exposure last 14 days History of Present Illness: HPI Narrative: Patient with complaints of cough. Possibly coughing up blood. He was not sent from [facility] office because he was not seen there but waiting room staff sent in. MD complaint: known COVID positive Prior covid testing: yes, results known COVID 19 common symptoms: positive cough, productive cough and dyspnea; negative fever(s), chills, body aches, headache(s), throat pain, nasal congestion, nausea or vomiting COVID 19 other sytmptoms: negative chest pain COVID Results: SARS-CoV-2 RNA (RT-PCR) Detected (NOT DETECTED) A 06/23/21 14:57 06/23/21 Review of Systems Const: Denies: fever(s), chills or body aches Eyes: Denies: change in vision or blurry vision ENMT: Denies: throat pain or nasal congestion Card: Denies: chest pain or dyspnea on exertion Resp: Reports: dyspnea and productive cough GI: Denies: abdominal pain, nausea or vomiting : Denies: difficulty urinating Musc: Denies: extremity pain Skin/Breast: Denies: rash Neuro: Denies: headache(s) Psych: Denies: anxiety or depression Armaan/Lymph: Denies: easy bruising PFSH ED PFSH: Surgical History History of carpal tunnel surgery Left wrist History of foot surgery History of hand surgery Reconstruction, left hand Family History Other Cancer Diabetes Social History Smoking and tobacco status: never smoked Second hand smoke exposure: Yes Alcohol intake: never Lives independently: Yes Household members: spouse Marital status: Current occupational status: employed 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 [employer] History of recent travel: No Current gender identity: Male Physical Exam Const: COMMON NORMALS: no acute distress GENERAL APPEARANCE: cooperative Resp: COMMON NORMALS: normal respiratory effort EFFORT & INSPECTION: Yes able to speak in complete sentences Psych: COMMON NORMALS: mental status grossly normal Course Vital Signs: Vital signs: Vital Signs Temperature 98.0 F 07/11/21 17:25 Pulse Rate 106 H 07/11/21 17:25 Respiratory Rate 19 H 07/11/21 17:25 Blood Pressure 124/83 07/11/21 17:25 Pulse Oximetry 96 07/11/21 17:25 MDM - COVID COVID Results: SARS-CoV-2 RNA (RT-PCR) Detected (NOT DETECTED) A 06/23/21 14:57 06/23/21 Discharge Plan Discharge Prescriptions: No Action methylprednisolone [Medrol (Kalin)] 4 mg tablets,dose pack See Rx Instructions PO PER PKG DIR Qty: 21 RF: 0 Coding Level of Care Code ED Mail Superintendent for Chg Erick
[2021-07-11 18:52] VITALS: RESP 19; TEMP 36.7; O2SAT 96
== END 2021-07-11 18:52 | disposition home or self-care (01) ==
PROVIDERS: Emergency Provider Nurse Practitioner Family; PCP Family Medicine
DX: U07.1 COVID-19 (principal); Z77.22 Contact with and (suspected) exposure to environmental tobacco smoke (acute) (chronic)
CPT/HCPCS: 71045; 99282

== ENCOUNTER 2023-05-17 01:23 | Emergency (ER) | payer MEDICAID, SELFPAY ==
[2023-05-17 01:26] VITALS: BP 108/45; PULSE 71; RESP 16; TEMP 36.4; O2SAT 92; BMI 48.8
--- NOTE | 2023-05-17 01:56 | XRR_ITS ---
PROCEDURE INFORMATION: Exam: XR Chest Exam date and time: 05/17/2023 2:02 AM Age: 38 years old Clinical indication: Patient HX: Severe lethargy; Additional info: AMS TECHNIQUE: Imaging protocol: Radiologic exam of the chest. Views: 1 view. COMPARISON: CR XR chest 1V portable [id number] 07/11/2021 6:32 PM FINDINGS: Patient's body habitus limits the examination. Lungs: Decreased lung volumes with atelectasis at the lung bases. There is peribronchial cuffing consistent with probable mild interstitial edema. Pleural spaces: Unremarkable. No pleural effusion. No pneumothorax. Heart/Mediastinum: Unremarkable. No cardiomegaly. Bones/joints: Unremarkable. XR/XR chest 1V portable [id number] IMPRESSION: Pulmonary edema.
--- NOTE | 2023-05-17 01:56 | CTR_ITS ---
PROCEDURE INFORMATION: Exam: CT Head Without Contrast Exam date and time: 05/17/2023 2:13 AM Age: 38 years old Clinical indication: Altered mental status/memory loss; Patient HX: Severe lethargy; Additional info: AMS TECHNIQUE: Imaging protocol: Computed tomography of the head without contrast. Radiation optimization: All CT scans at this facility use at least one of these dose optimization techniques: automated exposure control; mA and/or kV adjustment per patient size (includes targeted exams where dose is matched to clinical indication); or iterative reconstruction. REPORTING DATA: Count of CT and Cardiac NM exams in prior 12 months: This patient has received 0 known CTs and 0 known cardiac nuclear medicine studies in the 12 months prior to the current study. COMPARISON: No relevant prior studies available. RADIATION DOSE METRICS: Total DLP (mGy-cm): 1118.58 FINDINGS: Brain: Normal. No hemorrhage. Unremarkable white matter. No mass effect. Cerebral ventricles: No ventriculomegaly. Paranasal sinuses: Mucosal thickening in the ethmoid sinuses. Mastoid air cells: Visualized mastoid air cells are well aerated. Bones/joints: Unremarkable. No acute fracture. Soft tissues: Unremarkable. CT/CT head wo con* [id number] IMPRESSION: No acute intracranial abnormality.
[2023-05-17 02:08] LABS: Basophils # 0.1 10^3/uL (0.0-0.1); Basophils % 0.6 %; Eosinophils # 1.3 10^3/uL (0.0-0.8); Eosinophils % 14.6 %; Hematocrit 40.5 % (42.0-52.0); Hemoglobin 13.1 g/dL (11.7-16.6); Lymphocytes % 33.7 %; Mean Corpuscular HGB Conc 32.3 g/dL (30.0-36.0); Mean Corpuscular Hemoglobin 28.9 pg (28.0-34.0); Mean Corpuscular Volume 89.4 fl (80-94); Mean Platelet Volume 10.3 fL (7.4-10.4); Monocytes # 0.6 10^3/uL (0.2-0.9); Monocytes % 7.1 %; Neutrophils # 3.86 10^3/uL (1.8-7.7); Neutrophils % 43.7 %; Nucleated Red Blood Cells % 0 %; Platelet Count 224 10^3/cmm (130-400); Red Blood Count 4.53 10^6/uL (4.1-5.3); Red Cell Distribution Width 12.8 % (12.1-15.1); White Blood Count 8.8 10^3/uL (4.0-10.0)
[2023-05-17 02:20] LABS: Add Urine Microscopic? YES; Bilirubin Urine 1+ (Negative); Blood Urine Neg (Negative); Glucose Urine UA Norm (Normal); Ketones Urine Negative (Negative); Leukocyte Esterase Urine Trace (Negative); Nitrate Urine Negative (Negative); Protein Urine Trace (Negative); Specific Gravity, Urine 1.025 (1.005-1.030); Urine Appearance SL Hazy (CLEAR); Urine Color Orange (Yellow); Urobilinogen Urine 4 mg/dL (Negative); pH Urine 5 (5-7)
[2023-05-17 02:26] LABS: Alanine Aminotransferase 18 U/L (0-41); Albumin Level 3.4 g/dL (3.5-5.2); Alkaline Phosphatase 77 U/L (40-130); Blood Urea Nitrogen 9 mg/dL (6-20); Calcium 9.4 mg/dL (8.5-10.5); Carbon Dioxide 25 mmol/L (22-29); Chloride 104 mmol/L (98-107); Globulin 3.6 g/dL (1.3-4.6); Glomerular Filtration Rate 95.5 mL/min (90-130); Glucose 103 mg/dL (65-115); Osmolality Calculated 283 mOsm/kg (285-295); Sodium 137 mmol/L (136-145); Total Bilirubin 0.3 mg/dL (0.15-1.2)
[2023-05-17 02:28] LABS: Amphetamines Screen Urine Negative (Negative); Barbiturates Screen Urine Negative (Negative); Benzodiazepines Screen Urine Positive (Negative); Cocaine Screen Urine Negative (Negative); Opiate Screen Urine Positive (Negative); PCP Screen Urine Negative (Negative); RBC Urine 0-4 /hpf (0-2); Squamous Epithelial Cell Urine 0-4 /hpf (0-5); THC Screen Urine Positive (Negative); WBC Urine 0-4 /hpf (0-5)
[2023-05-17 02:29] LABS: Bacteria Urine 1+ /hpf; Mucus Urine TRACE /hpf
[2023-05-17 02:30] LABS: Acetaminophen < 5.0 ug/mL (10-30); Alcohol Level < 10 mg/dL (0-10); Anion Gap 12.4 (5-19); Aspartate Amino Transferase 22 U/L (0-40); Potassium 4.4 mmol/L (3.5-5.1); Salicylate < 0.3 mg/dL (3-10)
[2023-05-17 02:34] LABS: Ammonia 36 umol/L (16-60)
[2023-05-17] MEDS: sodium chloride 0.9% 1,000 ML 999 ML IV (02:39)
--- NOTE | 2023-05-17 02:44 | ECG_ITS ---
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 Measurements Intervals [place] Rate: 66 P: 33 WA: 210 QRS: 36 QRSD: 105 T: 53 QT: 388 QTc: 406 Interpretive Statements SINUS RHYTHM WITH FIRST DEGREE AV BLOCK No previous ECG available for comparison Electronically Signed On 05-17-2023 9:37:43 CDT by Jean-Pierre Heath M.D. [id number]
[2023-05-17 02:46] VITALS: BP 117/71; PULSE 64; RESP 15; O2SAT 98
--- NOTE | 2023-05-17 03:09 | ED_ITS ---
HPI - Altered Mental Status General: Chief Complaint: Altered Mental Status Stated Complaint: AMS Time Seen by Provider: 05/17/23 01:38 History of Present Illness: 38-year-old male who presents with decreased responsiveness. EMS was called. He was found to be quite somnolent, but not completely obtunded. Blood sugar was checked and was normal. He awakens to voice. He answers most questions appropriately. He has slurred speech on interview. He complains of multiple symptoms including enuresis and anxiety. He states that he wants to be checked for diabetes because of the problem with his urine. He admits to taking 2 Benadryl around 3 PM because he had a headache. MD complaint: altered mental status and decreased responsiveness Onset (ago): hour(s) Timing confirmed by: spouse Severity: moderate Consistency of symptoms: Waxing and Waning Context: other Associated symptoms: Deny homicidal ideation or suicidal ideation Review of Systems Const: Denies: fever(s) Eyes: Reports: change in vision Card: Denies: chest pain Resp: Denies: dyspnea GI: Denies: vomiting Neuro: Reports: headache(s) Psych: Reports: sleeping less; Denies: suicidal ideation or homicidal ideation Endo: Reports: polyuria PFSH ED PFSH: Medical History Abscess of lip Abscess of skin of right wrist Cellulitis COVID-19 07/11/2021 positive test Depression determined by examination History of MRSA infection leg and face Hypercholesteremia Left ankle pain Morbid obesity Weight gain, abnormal Surgical History History of carpal tunnel surgery Left wrist History of foot surgery History of hand surgery Reconstruction, left hand Family History Other Cancer Diabetes Social History Smoking and tobacco status: never smoked Second hand smoke exposure: Yes Alcohol intake: never Desire information about alcohol rehabilitation?: No Counseling given: No Substance/Drug Use: never Desire information about substance/drug rehabilitation?: No Counseling given: No Lives independently: Yes Household members: spouse Marital status: Number of children: 2 Current occupational status: employed and unemployed Current gender identity: Male Physical Exam Const: GENERAL APPEARANCE: cooperative and lethargic NUTRITIONAL APPEARANCE: obese ORIENTATION/CONSCIOUSNESS: Yes oriented to person, Yes oriented to place and Yes lethargic HENMT: COMMON NORMALS: normocephalic and atraumatic HEAD & SCALP: normocephalic and atraumatic Eye: COMMON NORMALS: Equal, round and reactive pupils present PUPIL: Yes Equal, round and reactive pupils present Neck/C-Spine: GENERAL: Yes trachea midline Chest: CHEST: Yes Symmetrical chest wall rise Resp: COMMON NORMALS: normal respiratory effort, No use of accessory muscles and clear to auscultation bilaterally AUSCULTATION: clear to auscultation bilaterally Cardio: COMMON NORMALS: regular rate and regular rhythm RATE: regular rate RHYTHM: regular rhythm GI: COMMON NORMALS: Normal to inspection, nondistended, normoactive bowel sounds present Extremity: COMMON NORMALS: capillary refill normal Neuro: JUNAID COMA SCALE: document GCS findings Junaid coma scale eye opening: To sound [place] coma scale verbal response: Orientated [place] coma scale motor response: Obey commands [place] coma scale total score: 14 SENSORIUM/ORIENTATION: Yes oriented to person, Yes oriented to place and Yes lethargic SPEECH: abnormal speech Details: slurred Psych: COMMON NORMALS: cooperative Course Vital Signs: Vital signs: Vital Signs Temperature 97.6 F 05/17/23 01:26 Pulse Rate 71 05/17/23 01:26 Respiratory Rate 16 05/17/23 01:26 Blood Pressure 108/45 05/17/23 01:26 Pulse Oximetry 92 05/17/23 01:26 Oxygen Delivery Me thod Room Air 05/17/23 01:26 MDM - Altered Mental Status Medical Decision Making 38-year-old male presenting with significant lethargy/somnolence. Me somewhat improved at this point. He is answering questions appropriately. CBC is normal. BMP is normal. No signs of hyperglycemia. Urinalysis is negative. Alcohol is negative. Drug screen shows benzodiazepines opiates and marijuana. Head CT is negative. Chest x-ray Is read as pulmonary edema, more likely shallow inspiration with increased body habitus. His oxygen saturations are 97% on room air. Respiratory rate up to 20 now, heart rate 70, blood pressure 123/66. He is awake now, talking, and oriented. He was counseled on his diagnosis. So was his . Will allow discharge. Lab Data 05/17/23 01:00 05/17/23 01:00 Radiology Impressions Chest X-Ray 05/17/23 01:56 IMPRESSION: Pulmonary edema. Head CT 05/17/23 01:56 IMPRESSION: No acute intracranial abnormality. Laboratory Results WBC 8.8 10^3/uL (4.0-10.0) 05/17/23 01:00 RBC 4.53 10^6/uL (4.1-5.3) 05/17/23 01:00 Hgb 13.1 g/dL (11.7-16.6) 05/17/23 01:00 Hct 40.5 % (42.0-52.0) L 05/17/23 01:00 MCV 89.4 fl (80-94) 05/17/23 01:00 MCH 28.9 pg (28.0-34.0) 05/17/23 01:00 MCHC 32.3 g/dL (30.0-36.0) 05/17/23 01:00 RDW 12.8 % (12.1-15.1) 05/17/23 01:00 Plt Count 224 10^3/cmm (130-400) 05/17/23 01:00 MPV 10.3 fL (7.4-10.4) 05/17/23 01:00 Neut % (Auto) 43.7 % 05/17/23 01:00 Lymph % (Auto) 33.7 % 05/17/23 01:00 [place] % (Auto) 7.1 % 05/17/23 01:00 Eos % (Auto) 14.6 % 05/17/23 01:00 Baso % (Auto) 0.6 % 05/17/23 01:00 Neut # (Auto) 3.86 10^3/uL (1.8-7.7) 05/17/23 01:00 Lymph # (Auto) 3.0 10^3/uL (0.8-4.8) 05/17/23 01:00 [place] # (Auto) 0.6 10^3/uL (0.2-0.9) 05/17/23 01:00 Eos # (Auto) 1.3 10^3/uL (0.0-0.8) H 05/17/23 01:00 Baso # (Auto) 0.1 10^3/uL (0.0-0.1) 05/17/23 01:00 Nucleated RBC % (auto) 0 % 05/17/23 01:00 Nucleated RBCs # 0.0 /100WBC 05/17/23 01:00 Sodium 137 mmol/L (136-145) 05/17/23 01:00 Potassium 4.4 mmol/L (3.5-5.1) 05/17/23 01:00 Chloride 104 mmol/L (98-107) 05/17/23 01:00 Carbon Dioxide 25 mmol/L (22-29) 05/17/23 01:00 Anion Gap 12.4 (5-19) 05/17/23 01:00 BUN 9 mg/dL (6-20) 05/17/23 01:00 Creatinine 0.9 mg/dL (0.7-1.2) 05/17/23 01:00 GFR Calculation 95.5 mL/min (90-130) 05/17/23 01:00 Glucose 103 mg/dL (65-115) 05/17/23 01:00 Calculated Osmolality 283 mOsm/kg (285-295) L 05/17/23 01:00 Calcium 9.4 mg/dL (8.5-10.5) 05/17/23 01:00 Total Bilirubin 0.3 mg/dL (0.15-1.2) 05/17/23 01:00 AST 22 U/L (0-40) 05/17/23 01:00 ALT 18 U/L (0-41) 05/17/23 01:00 Alkaline Phosphatase 77 U/L (40-130) 05/17/23 01:00 Ammonia 36 umol/L (16-60) 05/17/23 02:09 Total Protein 7.0 g/dL (6.6-8.7) 05/17/23 01:00 Albumin 3.4 g/dL (3.5-5.2) L 05/17/23 01:00 Globulin 3.6 g/dL (1.3-4.6) 05/17/23 01:00 Urine Color [place] (Yellow) 05/17/23 02:05 Urine Appearance Sl hazy (CLEAR) A 05/17/23 02:05 Urine pH 5 (5-7) 05/17/23 02:05 Ur Specific [place] 1.025 (1.005-1.030) 05/17/23 02:05 Urine Protein Trace (Negative) 05/17/23 02:05 Urine Glucose (UA) Norm (Normal) 05/17/23 02:05 Urine Ketones Negative (Negative) 05/17/23 02:05 Urine Blood Neg (Negative) 05/17/23 02:05 Urine Nitrate Negative (Negative) 05/17/23 02:05 Urine Bilirubin 1+ (Negative) H 05/17/23 02:05 Urine Urobilinogen 4 mg/dL (Negative) H 05/17/23 02:05 Ur Leukocyte Esterase Trace (Negative) H 05/17/23 02:05 Urine RBC 0-4 /hpf (0-2) H 05/17/23 02:05 Urine WBC 0-4 /hpf (0-5) H 05/17/23 02:05 Ur Squamous Epith Cells 0-4 /hpf (0-5) H 05/17/23 02:05 Amorphous Sediment Not Reportable 05/17/23 02:05 Urine Bacteria 1+ /hpf (NONE) H 05/17/23 02:05 Urine Mucus Trace /hpf 05/17/23 02:05 Salicylates < 0.3 mg/dL (3-10) L 05/17/23 01:00 Urine Opiates Screen Positive ng/mL (Negative) H 05/17/23 02:05 Acetaminophen < 5.0 ug/mL (10-30) L 05/17/23 01:00 Ur Barbiturates Screen Negative ng/mL (Negative) 05/17/23 02:05 Ur Phencyclidine Scrn Negative ng/mL (Negative) 05/17/23 02:05 Ur Amphetamines Screen Negative ng/mL (Negative) 05/17/23 02:05 U Benzodiazepines Scrn Positive ng/mL (Negative) H 05/17/23 02:05 Urine Cocaine Screen Negative ng/mL (Negative) 05/17/23 02:05 U Marijuana (THC) Screen Positive ng/mL (Negative) H 05/17/23 02:05 Ethyl Alcohol < 10 mg/dL (0-10) 05/17/23 01:00 Discharge Plan Discharge Patient Disposition: Home Clinical Impression: Altered mental status, Accidental opiate poisoning Condition: Stable Prescriptions: No Action bupropion HCl 200 mg tablet sustained-release 12 hr 200 mg PO QAM Qty: 30 5RF Discharge Orders: Discharge ED (Routine); Ordered 05/17/23 Ordered By: Connor Troncoso Referrals: Julian Armas MD [Primary Care Provider] - 1-3 days Patient Instructions: Altered Mental Status (ED), Prescription Opioid Overdose (ED), Opioid Safety, Pain Management Coding Level of Care Code ED High School Sports Coach for Adal Suarez
[2023-05-17 03:15] VITALS: BP 123/66; PULSE 64; RESP 12; O2SAT 92
[2023-05-17 04:00] VITALS: BP 114/67; PULSE 65; RESP 15; O2SAT 100
== END 2023-05-17 04:07 | disposition home or self-care (01) ==
PROVIDERS: Emergency Provider Emergency Medicine; PCP Family Medicine Adult Medicine
DX: R41.82 Altered mental status, unspecified (principal); T40.601A Poisoning by unspecified narcotics, accidental (unintentional), initial encounter; Z77.22 Contact with and (suspected) exposure to environmental tobacco smoke (acute) (chronic)
CPT/HCPCS: 36415; 70450; 71045; 80053; 80306; 80307; 81001; 82140; 85025; 93005; 96360; 99285; J7030

== ENCOUNTER 2024-05-19 09:05 | Emergency (ER) | payer MEDICAID, SELFPAY ==
[2024-05-19 09:07] VITALS: BP 153/104; PULSE 102; RESP 17; TEMP 37.4; O2SAT 96; BMI 45.1
--- NOTE | 2024-05-19 09:15 | XR_ITS ---
WS: [id number] Exam: XR chest 1V portable [id number] Date/Time of Exam: 05/19/2024 9:35 AM Reason For Exam: cough/congestion Comparison 05/17/2023. Lungs are fully expanded and clear. Plaque atelectasis in the mid and lower LEFT lung. Normal cardiom ediastinal silhouette. No pleural effusions. Bony structures are intact. XR/XR chest 1V portable [id number] IMPRESSION: 1. No acute process identified. 2. Areas of plaque atelectasis in the mid and lower LEFT lung.
--- NOTE | 2024-05-19 09:16 | W.ED.GENADLT ---
HPI - General Adult General: Chief complaint: General Medical Stated complaint: chills Time Seen by Provider: 05/19/24 09:07 Source: patient Mode of arrival: EMS Limitations: no limitations History of Present Illness: Patient is a 39-year-old male who presents to ED today via EMS for evaluation of chills and nausea. He is also having some vague abdominal pains. Also feels anxious/trouble sleeping. No vomiting/changes in bowel movements. No documented fevers. Patient states he has a longstanding history of fentanyl abuse. He reportedly [place] himself [place] another [place] due to opiate withdrawal. He reportedly was admitted to the hospital for opiate detox. They also were giving him antibiotics for some type of upper respiratory infection. Patient states two days after discharge she was hurting so used fentanyl again. He states that was his last use and now he is having chills, abdominal pain, nausea, anxiety, trouble sleeping. He is convinced his symptoms are not related to opiate withdraw stating I know what that feels like . He states he knows this is related to either my sugars being high or pneumonia . He states he used to take Klonopin and Valium for his anxiety and those worked well. He arrives in [facility]. He is hypertensive. Onset (ago): day(s) Severity: mild Associated symptoms: Reports nausea; Deny chest pain, dyspnea, headache(s), malaise, rash, palpitations, syncope or vomiting Treatments prior to arrival: none Review of Systems Const: Reports: chills and body aches; Denies: fever(s), fatigue or malaise Eyes: Denies: change in vision or blurry vision Card: Denies: chest pain, palpitations, irregular heart rhythm, edema, swelling of feet/ankles, lightheadedness, syncope, pre-syncope, dyspnea on exertion, orthopnea, leg pain with exertion or acrocyanosis Resp: Reports: non-productive cough and chest congestion; Denies: dyspnea, productive cough, wheezing, pain on inspiration or hemoptysis GI: Reports: abdominal pain and nausea; Denies: vomiting, heartburn or diarrhea : Denies: flank pain, difficulty urinating, dysuria, urinary frequency, urinary urgency or urinary hesitancy Musc: Denies: neck pain, back pain, extremity pain, extremity swelling or joint pain Skin/Breast: Denies: rash Neuro: Denies: headache(s), numbness in extremities, weakness in extremities, sensory changes or dizziness PFSH ED PFSH: Medical History Weight gain, abnormal Morbid obesity History of MRSA infection leg and face Hypercholesteremia Depression determined by examination Abscess of lip COVID-19 07/11/2021 positive test Cellulitis Abscess of skin of right wrist Left ankle pain Surgical History History of hand surgery Reconstruction, left hand History of foot surgery History of carpal tunnel surgery Left wrist Family History Other Cancer Diabetes Social History Smoking and tobacco/nicotine status: never used tobacco/nicotine Second hand smoke exposure: Yes Alcohol intake: never Substance/Drug Use: never Lives independently: Yes Household members: spouse Marital status: Number of children: 2 Current occupational status: employed and unemployed Current gender identity: Male Physical Exam Const: COMMON NORMALS: no acute distress, patient oriented x3, no limitations, alert and well nourished GENERAL APPEARANCE: cooperative NUTRITIONAL APPEARANCE: obese morbidly obese ORIENTATION/CONSCIOUSNESS: Yes awake, Yes oriented to person, Yes oriented to place and Yes oriented to time HENMT: COMMON NORMALS: normocephalic and atraumatic HEAD & SCALP: normal to inspection, normocephalic and atraumatic Eye: COMMON NORMALS: Equal, round and reactive pupils present and EOMs intact bilaterally GENERAL EYE: appearance normal, both eyes and all related structures and normal light reflex PUPIL: Yes Equal, round and reactive pupils present DIRECT OPHTHALMOSCOPY: Yes normal light reflex Neck/C-Spine: COMMON NORMALS: full ROM, no lymphadenopathy, supple and no meningeal signs Chest: COMMONS NORMALS: normal inspection of the chest Resp: COMMON NORMALS: normal respiratory effort and clear to auscultation bilaterally AUSCULTATION: clear to auscultation bilaterally Cardio: COMMON NORMALS: regular rate and regular rhythm RATE: regular rate RHYTHM: regular rhythm GI: COMMON NORMALS: Normal to inspection, nondistended, normoactive bowel sounds present, Soft to palpation, non-tender, No hepatosplenomegaly present and no masses PALPATION: Yes Soft to palpation and Yes No hepatosplenomegaly present : COMMON NORMALS: Yes no CVA tenderness BLADDER/KIDNEY EXAM: Yes no CVA tenderness Back/Pelvis: COMMON NORMALS: no CVA tenderness and thoracic and lumbar spine normal to inspection Extremity: COMMON NORMALS: normal to inspection GENERAL: Yes normal exam except as noted Neuro: KATIUSKA COMA SCALE: document GCS findings [place] coma scale eye opening: Spontaneous [place] coma scale verbal response: Orientated [place] coma scale motor response: Obey commands [place] coma scale total score: 15 COMMON NORMALS: patient oriented x3, CN's II-XII intact bilaterally, moves all extremities, no focal motor deficits, no sensory deficits noted and gait normal SENSORIUM/ORIENTATION: Yes alert, Yes oriented to person, Yes oriented to place and Yes oriented to time MENINGEAL SIGNS: Yes no meningeal signs MOTOR EXAM: 5/5 motor strength present throughout Skin: COMMON NORMALS: no rashes or lesions noted GENERAL SKIN EXAM: no rashes or lesions noted Course Vital Signs: Vital signs: Vital Signs Temperature 99.4 F 05/19/24 09:07 Pulse Rate 102 H 05/19/24 09:07 Respiratory Rate 17 05/19/24 09:07 Blood Pressure 159/99 05/19/24 09:32 Pulse Oximetry 96 05/19/24 09:07 Oxygen Delivery Me thod Room Air 05/19/24 09:07 [facility] - General Adult Medical Decision Making I highly suspect patient's symptoms are secondary to some degree of opiate withdrawal. He is wanting to get on Subutex or similar medications to help with his opiate withdrawal. He was given resources to [facility] here in [place]. Blood work overall is non-actionable. CXR unremarkable. He is NAD here and will be allowed discharge. Medical Records I reviewed the patient's medical records. Lab Data I reviewed the patient's lab results. 05/19/24 09:23 05/19/24 09:23 Radiology Impressions Chest X-Ray 05/19/24 09:15 IMPRESSION: 1. No acute process identified. 2. Areas of plaque atelectasis in the mid and lower LEFT lung. Laboratory Results WBC 11.56 10^3/uL (3.29-11.43) H 05/19/24 09:23 RBC 5.40 10^6/uL (3.85-5.65) 05/19/24 09:23 Hgb 15.50 g/dL (11.27-16.99) 05/19/24 09:23 Hct 48.3 % (37-53) 05/19/24 09:23 MCV 89.4 fl (82-101) 05/19/24 09:23 MCH 28.7 pg (27-33) 05/19/24 09: MCHC 32.1 g/dL (30-55) 05/19/24 09:23 RDW 12.9 % (12.1-15.1) 05/19/24 09:23 Plt Count 216 10^3/cmm (157-399) 05/19/24 09:23 MPV 10.7 fL (7.4-10.4) H 05/19/24 09:23 Neut % (Auto) 59.9 % 05/19/24 09:23 Lymph % (Auto) 29.1 % 05/19/24 09:23 [place] % (Auto) 8.0 % 05/19/24 09:23 Eos % (Auto) 1.8 % 05/19/24 09:23 Baso % (Auto) 0.7 % 05/19/24 09:23 Neut # (Auto) 6.92 10^3/uL (1.8-7.7) 05/19/24 09:23 Lymph # (Auto) 3.4 10^3/uL (0.8-4.8) 05/19/24 09:23 [place] # (Auto) 0.9 10^3/uL (0.2-0.9) 05/19/24 09:23 Eos # (Auto) 0.2 10^3/uL (0.0-0.8) 05/19/24 09:23 Baso # (Auto) 0.1 10^3/uL (0.0-0.1) 05/19/24 09:23 Nucleated RBC % (auto) 0 % 05/19/24 09:23 Nucleated RBCs # 0.0 /100WBC 05/19/24 09:23 Sodium 138 mmol/L (136-145) 05/19/24 09:23 Potassium 3.4 mmol/L (3.5-5.1) L 06/28/24 09:23 Chloride 103 mmol/L (98-107) 05/19/24 09:23 Carbon Dioxide 24 mmol/L (22-29) 05/19/24 09:23 Anion Gap 14.4 (5-19) 05/19/24 09:23 BUN 11 mg/dL (6-20) 05/19/24 09:23 Creatinine 0.8 mg/dL (0.7-1.2) 05/19/24 09:23 GFR Calculation 108.8 mL/min (90-130) 05/19/24 09:23 Glucose 127 mg/dL (65-115) H 05/19/24 09:23 Calculated Osmolality 287 mOsm/kg (285-295) 05/19/24 09:23 Calcium 9.3 mg/dL (8.5-10.5) 05/19/24 09:23 Total Bilirubin 0.5 mg/dL (0.15-1.2) 05/19/24 09:23 AST 27 U/L (0-40) 05/19/24 09:23 ALT 54 U/L (0-41) H 05/19/24 09:23 Alkaline Phosphatase 119 U/L (40-130) 05/19/24 09:23 Total Protein 7.5 g/dL (6.6-8.7) 05/19/24 09:23 Albumin 4.0 g/dL (3.5-5.2) 05/19/24 09:23 Globulin 3.5 g/dL (1.3-4.6) 05/19/24 09:23 All radiology interpretation(s) finalized by discharge Discharge Plan Discharge Patient Disposition: Home Clinical Impression: Opiate withdrawal Condition: Stable Prescriptions: No Action ondansetron 8 mg tablet,disintegrating 8 mg PO Q8H PRN (Reason: nausea and vomiting) Qty: 10 0RF amoxicillin-pot clavulanate 875-125 mg tablet 1 tab PO BID 7 Days Qty: 14 0RF Discharge Orders: Discharge ED (Routine); Ordered 05/19/24 Ordered By: Dulce Riggins Referrals: Julian Armas MD [Primary Care Provider] - Activity Restrictions/Additional Instructions: [facility] [address] [place] [address] Coding Level of Care Code ED Makeup Artist for g Erick
[2024-05-19] MEDS: sodium chloride 0.9% 1,000 ML 999 ML IV (09:31)
[2024-05-19 09:32] VITALS: BP 159/99
[2024-05-19] MEDS: ondansetron 2 mg/ML SDV 2 mL 4 MG IVP (09:32)
[2024-05-19] MEDS: cloNIDine 0.1 mg Tablet 0.100000000000000006 MG PO (09:32)
[2024-05-19 09:38] LABS: Basophils # 0.1 10^3/uL (0.0-0.1); Basophils % 0.7 %; Eosinophils # 0.2 10^3/uL (0.0-0.8); Eosinophils % 1.8 %; Hematocrit 48.3 % (37-53); Lymphocytes # 3.4 10^3/uL (0.8-4.8); Lymphocytes % 29.1 %; Mean Corpuscular HGB Conc 32.1 g/dL (30-55); Mean Corpuscular Hemoglobin 28.7 pg (27-33); Mean Corpuscular Volume 89.4 fl (82-101); Mean Platelet Volume 10.7 fL (7.4-10.4); Monocytes # 0.9 10^3/uL (0.2-0.9); Neutrophils # 6.92 10^3/uL (1.8-7.7); Neutrophils % 59.9 %; Nucleated Red Blood Cells % 0 %; Platelet Count 216 10^3/cmm (157-399); Red Cell Distribution Width 12.9 % (12.1-15.1); White Blood Count 11.56 10^3/uL (3.29-11.43)
[2024-05-19 09:49] LABS: Alanine Aminotransferase 54 U/L (0-41); Alkaline Phosphatase 119 U/L (40-130); Anion Gap 14.4 (5-19); Aspartate Amino Transferase 27 U/L (0-40); Blood Urea Nitrogen 11 mg/dL (6-20); Calcium 9.3 mg/dL (8.5-10.5); Carbon Dioxide 24 mmol/L (22-29); Chloride 103 mmol/L (98-107); Creatinine Clr Calc Pharmacy 191.2982; Globulin 3.5 g/dL (1.3-4.6); Glomerular Filtration Rate 108.8 mL/min (90-130); Glucose 127 mg/dL (65-115); Osmolality Calculated 287 mOsm/kg (285-295); Potassium 3.4 mmol/L (3.5-5.1); Sodium 138 mmol/L (136-145); Total Bilirubin 0.5 mg/dL (0.15-1.2); Total Protein 7.5 g/dL (6.6-8.7)
[2024-05-19] MEDS: acetaminophen 500 mg Tablet 1000 MG PO (10:06)
[2024-05-19] MEDS: diphenhydrAMINE 50 mg/mL SDV 1mL IVP (10:13)
[2024-05-19 10:35] VITALS: BP 144/65; PULSE 106; RESP 17; O2SAT 96
== END 2024-05-19 10:36 | disposition home or self-care (01) ==
PROVIDERS: Emergency Provider Physician Assistant; PCP Family Medicine Adult Medicine
DX: F11.23 Opioid dependence with withdrawal (principal); Z77.22 Contact with and (suspected) exposure to environmental tobacco smoke (acute) (chronic)
CPT/HCPCS: 71045; 80053; 85025; 96361; 96374; 96375; 99284; J1200; J2405; J7030

== ENCOUNTER 2024-07-18 13:55 | Emergency (ER) | payer MEDICAID, SELFPAY ==
[2024-07-18 14:25] LABS: Basophils # 0.1 10^3/uL (0.0-0.1); Basophils % 0.4 %; Eosinophils % 0.1 %; Hematocrit 47.7 % (37-53); Lymphocytes # 1.7 10^3/uL (0.8-4.8); Lymphocytes % 14.5 %; Mean Corpuscular HGB Conc 33.1 g/dL (30-55); Mean Corpuscular Hemoglobin 28.5 pg (27-33); Mean Corpuscular Volume 85.9 fl (82-101); Mean Platelet Volume 11.1 fL (7.4-10.4); Monocytes # 0.6 10^3/uL (0.2-0.9); Monocytes % 4.9 %; Neutrophils # 9.28 10^3/uL (1.8-7.7); Neutrophils % 79.8 %; Nucleated Red Blood Cells % 0 %; Platelet Count 261 10^3/cmm (157-399); Red Blood Count 5.55 10^6/uL (3.85-5.65); Red Cell Distribution Width 12.4 % (12.1-15.1); White Blood Count 11.63 10^3/uL (3.29-11.43)
[2024-07-18 14:36] VITALS: BP 122/83; PULSE 72; RESP 14; TEMP 36.8; O2SAT 97
[2024-07-18 14:45] LABS: Alanine Aminotransferase 36 U/L (0-41); Alkaline Phosphatase 117 U/L (40-130); Anion Gap 16.5 (5-19); Aspartate Amino Transferase 27 U/L (0-40); Blood Urea Nitrogen 12 mg/dL (6-20); Calcium 9.6 mg/dL (8.5-10.5); Carbon Dioxide 23 mmol/L (22-29); Chloride 101 mmol/L (98-107); Creatinine Clr Calc Pharmacy 191.9469; Glomerular Filtration Rate 108.8 mL/min (90-130); Glucose 120 mg/dL (65-115); Lipase 37 U/L (13-60); Osmolality Calculated 285 mOsm/kg (285-295); Potassium 3.5 mmol/L (3.5-5.1); Sodium 137 mmol/L (136-145); Total Bilirubin 0.6 mg/dL (0.15-1.2)
--- NOTE | 2024-07-18 15:18 | ED_ITS ---
HPI - Nausea/Vomiting/Diarrhea 2 General: Chief complaint: Nausea/Vomiting/Diarrhea Stated complaint: N/V Time Seen by Provider: 07/18/24 14:55 Source: patient Mode of arrival: ambulatory Limitations: no limitations History of Present Illness: Patient is a 39-year-old male presents to ED today with a complaint of diffuse back pain, abdominal pain, nausea, vomiting, chills, and subjective fevers. Symptoms began yesterday. States he has vomited up 3 big pickle jars worth of non-bloody emesis. States he is having normal bowel movements. He reports all the symptoms started after a tooth abscess busted in his mouth . He is reportedly on antibiotics from his primary care provider for this. He arrives with completely normal vital signs. Denies urinary symptoms. He states he feels dehydrated. Previous history of opiate abuse but states he has been clean since I last saw him in April. Reports family member recently with similar GI bug. MD elicited complaint: nausea, vomiting, abdominal pain, flank pain and other (back pain, chills/subjective fevers) Onset (ago): day(s) Associated nausea: Yes Associated abdominal pain: Yes Location of pain: Diffuse Radiation: diffuse Pain consistency: constant Severity: moderate Quality: cramping and aching Exacerbating factors: none Relieving factors: none Associated symtoms: Reports nausea; Denies change in vision, chest pain, dizziness, dysuria or headache(s) Related Data Previous Rx's Medication Instructions Recorded amoxicillin 875 mg-potassium 1 tab PO BID 7 days #28 tabs 07/14/24 clavulanate 125 mg tablet ondansetron 4 mg disintegrating 4 mg PO Q8H PRN nausea and 07/18/24 tablet vomiting #14 tabs Allergies Allergy/AdvReac Type Severity Reaction Status Date / Time topiramate [From Topamax] Allergy Unknown Verified 07/18/24 14:41 Review of Systems 2 Const: Reports: fever(s) (subjective) and chills; Denies: body aches Eyes: Denies: change in vision or blurry vision Card: Denies: chest pain Resp: Denies: dyspnea GI: Reports: abdominal pain, nausea and vomiting; Denies: diarrhea, constipation or change in bowel habits : Denies: flank pain, difficulty urinating, dysuria, urinary frequency, urinary urgency or urinary hesitancy Musc: Reports: back pain; Denies: neck pain, extremity pain, extremity swelling, joint pain or joint swelling Skin/Breast: Denies: rash Neuro: Denies: headache(s), numbness in extremities, weakness in extremities, sensory changes or dizziness PFSH ED 2 PFSH: Medical History Weight gain, abnormal Morbid obesity History of MRSA infection leg and face Hypercholesteremia Depression determined by examination Abscess of lip COVID-19 07/11/2021 positive test Cellulitis Abscess of skin of right wrist Left ankle pain Surgical History History of hand surgery Reconstruction, left hand History of foot surgery History of carpal tunnel surgery Left wrist Family History Other Cancer Diabetes Social History Smoking and tobacco/nicotine status: unknown if used tobacco/nicotine Second hand smoke exposure: Yes Alcohol intake: never Substance/Drug Use: never Lives independently: Yes Household members: spouse Marital status: Number of children: 2 Current occupational status: employed and unemployed Current gender identity: Male Physical Exam 2 Const: COMMON NORMALS: no acute distress, patient oriented x3, no limitations and alert GENERAL APPEARANCE: cooperative NUTRITIONAL APPEARANCE: obese morbidly obese (BMI of 45.4) ORIENTATION/CONSCIOUSNESS: Yes awake, Yes oriented to person, Yes oriented to place and Yes oriented to time HENMT: COMMON NORMALS: normocephalic and atraumatic HEAD & SCALP: normal to inspection, normocephalic and atraumatic FACE & SINUS: normal facial exam Neck/C-Spine: COMMON NORMALS: full ROM, no lymphadenopathy, supple and no meningeal signs Chest: COMMONS NORMALS: normal inspection of the chest Resp: COMMON NORMALS: normal respiratory effort and clear to auscultation bilaterally AUSCULTATION: clear to auscultation bilaterally Cardio: COMMON NORMALS: regular rate and regular rhythm RATE: regular rate RHYTHM: regular rhythm GI: COMMON NORMALS: Normal to inspection, nondistended, normoactive bowel sounds present, Soft to palpation and no masses INSPECTION: Yes normal to inspection and Yes central obesity AUSCULTATION: Yes normoactive bowel sounds PALPATION: Yes Soft to palpation and Yes Tenderness to palpation present (GI) (diffusely) OTHER: exam limited by body habitus : BLADDER/KIDNEY EXAM: Yes CVA tenderness Back/Pelvis: COMMON NORMALS: thoracic and lumbar spine normal to inspection GENERAL BACK: Yes CVA tenderness THORACIC SPINE/UPPER BACK: No thoracic spinal tenderness and Yes paraspinal muscle tenderness LUMBAR SPINE/LOWER BACK: No lumbar spinal tenderness and Yes paraspinal muscle tenderness P FRANCISCO J: Yes buttocks normal SACROILIAC JOINTS: Yes SI joints normal SACRUM: no tenderness COCCYX: no tenderness BACK IMAGE (MALE): 1. 2. TTP bilaterally Extremity: COMMON NORMALS: normal to inspection and full ROM NARRATIVE EXTREMITY EXAM: distal pulses/cap refill/sensation all normal GENERAL: Yes normal exam except as noted Neuro: JUNA[place] COMA SCALE: document GCS findings [place] coma scale eye opening: Spontaneous [place] coma scale verbal response: Orientated [place] coma scale motor response: Obey commands [place] coma scale total score: 15 COMMON NORMALS: patient oriented x3, moves all extremities, no focal motor deficits, no sensory deficits noted and gait normal SENSORIUM/ORIENTATION: Yes alert, Yes oriented to person, Yes oriented to place and Yes oriented to time MENINGEAL SIGNS: Yes no meningeal signs Skin: COMMON NORMALS: no rashes or lesions noted GENERAL SKIN EXAM: no rashes or lesions noted Course 2 Vital Signs: Vital signs: Vital Signs Temperature 98.3 F 07/18/24 14:36 Pulse Rate 75 07/18/24 15:53 Respiratory Rate 14 07/18/24 14:36 Blood Pressure 130/88 07/18/24 15:53 Pulse Oximetry 97 07/18/24 15:53 Oxygen Delivery Me thod Room Air 07/18/24 15:53 MDM - Nausea/Vomiting/Diarrhea Medical Decision Making Patient has not had any vomiting while here. His vital signs are completely normal. Blood work overall is nonactionable. He was unable to give a urine sample. CT scan is essentially unremarkable. Patient is requesting discharge. Return to ED precautions given. Medical Records I reviewed the patient's medical records. Lab Data I reviewed the patient's lab results. 07/18/24 14:15 07/18/24 14:15 Radiology Impressions Abdomen/Pelvis CT 07/18/24 15:18 IMPRESSION: 1. No evidence of acute abnormality in the abdomen or pelvis. 2. Multiple nonobstructive renal stones bilaterally. Laboratory Results WBC 11.63 10^3/uL (3.29-11.43) H 07/18/24 14:15 RBC 5.55 10^6/uL (3.85-5.65) 07/18/24 14:15 Hgb 15.80 g/dL (11.27-16.99) 07/18/24 14:15 Hct 47.7 % (37-53) 07/18/24 14:15 MCV 85.9 fl (82-101) 07/18/24 14:15 MCH 28.5 pg (27-33) 07/18/24 14:15 MCHC 33.1 g/dL (30-55) 07/18/24 14:15 RDW 12.4 % (12.1-15.1) 07/18/24 14:15 Plt Count 261 10^3/cmm (157-399) 07/18/24 14:15 MPV 11.1 fL (7.4-10.4) H 07/18/24 14:15 Neut % (Auto) 79.8 % 07/18/24 14:15 Lymph % (Auto) 14.5 % 07/18/24 14:15 [place] % (Auto) 4.9 % 07/18/24 14:15 Eos % (Auto) 0.1 % 07/18/24 14:15 Baso % (Auto) 0.4 % 07/18/24 14:15 Neut # (Auto) 9.28 10^3/uL (1.8-7.7) H 07/18/24 14:15 Lymph # (Auto) 1.7 10^3/uL (0.8-4.8) 07/18/24 14:15 [place] # (Auto) 0.6 10^3/uL (0.2-0.9) 07/18/24 14:15 Eos # (Auto) 0.0 10^3/uL (0.0-0.8) 07/18/24 14:15 Baso # (Auto) 0.1 10^3/uL (0.0-0.1) 07/18/24 14:15 Nucleated RBC % (auto) 0 % 07/18/24 14:15 Nucleated RBCs # 0.0 /100WBC 07/18/24 14:15 Sodium 137 mmol/L (136-145) 07/18/24 14:15 Potassium 3.5 mmol/L (3.5-5.1) 07/18/24 14:15 Chloride 101 mmol/L (98-107) 07/18/24 14:15 Carbon Dioxide 23 mmol/L (22-29) 07/18/24 14:15 Anion Gap 16.5 (5-19) 07/18/24 14:15 BUN 12 mg/dL (6-20) 07/18/24 14:15 Creatinine 0.8 mg/dL (0.7-1.2) 07/18/24 14:15 GFR Calculation 108.8 mL/min (90-130) 07/18/24 14:15 Glucose 120 mg/dL (65-115) H 07/18/24 14:15 Calculated Osmolality 285 mOsm/kg (285-295) 07/18/24 14:15 Calcium 9.6 mg/dL (8.5-10.5) 07/18/24 14:15 Total Bilirubin 0.6 mg/dL (0.15-1.2) 07/18/24 14:15 AST 27 U/L (0-40) 07/18/24 14:15 ALT 36 U/L (0-41) 07/18/24 14:15 Alkaline Phosphatase 117 U/L (40-130) 07/18/24 14:15 Total Protein 8.0 g/dL (6.6-8.7) 07/18/24 14:15 Albumin 4.0 g/dL (3.5-5.2) 07/18/24 14:15 Globulin 4.0 g/dL (1.3-4.6) 07/18/24 14:15 Lipase 37 U/L (13-60) 07/18/24 14:15 All radiology interpretation(s) finalized by discharge Discharge Plan Discharge Patient Disposition: Home Clinical Impression: Gastroenteritis Condition: Stable Prescriptions: New ondansetron 4 mg tablet,disintegrating 4 mg PO Q8H PRN (Reason: nausea and vomiting) Qty: 14 0RF No Action amoxicillin-pot clavulanate 875-125 mg tablet 1 tab PO BID 7 Days Qty: 28 0RF Discharge Orders: Discharge ED (Routine); Ordered 07/18/24 Ordered By: Dulce Riggins Referrals: Julian Armas MD [Primary Care Provider] - Patient Instructions: Gastroenteritis (DC), Acute Nausea and Vomiting (DC) Coding Level of Care Code ED Marine 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
--- NOTE | 2024-07-18 15:18 | CTR_ITS ---
PROCEDURE INFORMATION: Exam: CT Abdomen And Pelvis With Contrast Exam date and time: 07/18/2024 3:33 PM Age: 39 years old Clinical indication: Abdominal pain; Other: Abd and flank; Additional info: Abdomen, back, flank pain TECHNIQUE: Imaging protocol: Computed tomography of the abdomen and pelvis with contrast. Radiation optimization: All CT scans at this facility use at least one of these dose optimization techniques: automated exposure control; mA and/or kV adjustment per patient size (includes targeted exams where dose is matched to clinical indication); or iterative reconstruction. Contrast material: [id number]; Contrast volume: 100 ml; Contrast route: INTRAVENOUS (IV); COMPARISON: CT pelvis wo con [id number] 04/30/2021 7:19 AM RADIATION DOSE METRICS: Total DLP (mGy-cm): 1507 FINDINGS: Lungs: Subsegmental bibasilar atelectasis. The visualized lung bases are otherwise grossly clear. Diaphragm: No evidence of diaphragmatic defect. Liver: Hepatic steatosis. No evidence of focal hepatic lesion. Gallbladder and biliary ducts: There is cholelithiasis. No inflammatory changes to suggest acute cholecystitis. No intrahepatic or extrahepatic biliary dilatation. Pancreas: Unremarkable. Spleen: Unremarkable. Adrenal glands: Unremarkable. Kidneys and ureters: Multiple nonobstructive renal stones bilaterally measuring up to 3 mm. No hydronephrosis or ureteral stone. Stomach and bowel: No evidence of bowel obstruction or perienteric inflammatory changes. Appendix: Normal appendix. Intraperitoneal space: No evidence of free air or fluid collection. Vasculature: No aneurysmal dilatation or dissection of the abdominal aorta. The celiac trunk, SMA and [place] are grossly patent. No evidence of IVC thrombus. The portal vein, SMV and splenic veins are grossly patent. Lymph nodes: No adenopathy. Urinary bladder: Grossly unremarkable. Reproductive: Grossly unremarkable. Bones/joints: No evidence of acute fracture or aggressive osseous lesion. Soft tissues: No evidence of fluid collection or hematoma in the superficial soft tissues. CT/CT abdomen pelvis w con* [id number] IMPRESSION: 1. No evidence of acute abnormality in the abdomen or pelvis. 2. Multiple nonobstructive renal stones bilaterally.
[2024-07-18] MEDS: iohexol 350 mg/mL 500 mL Btl (per mL) IV (15:36)
[2024-07-18] MEDS: sodium chloride 0.9% 1,000 ML 999 ML IV (15:50)
[2024-07-18] MEDS: ondansetron 2 mg/ML SDV 2 mL 4 MG IVP (15:51)
[2024-07-18 15:53] VITALS: BP 130/88; PULSE 75; O2SAT 97
[2024-07-18] MEDS: ketorolac 30 mg/mL INJ IVP (16:14)
[2024-07-18 16:27] VITALS: BP 130/84; PULSE 56; O2SAT 98
== END 2024-07-18 16:29 | disposition home or self-care (01) ==
PROVIDERS: Emergency Medicine; Emergency Provider Physician Assistant; PCP Family Medicine Adult Medicine
DX: K52.9 Noninfective gastroenteritis and colitis, unspecified (principal); Z77.22 Contact with and (suspected) exposure to environmental tobacco smoke (acute) (chronic)
CPT/HCPCS: 36415; 74177; 80053; 83690; 85025; 96374; 96375; 99285; J1885; J2405; J7030; Q9967

== ENCOUNTER 2024-08-07 19:04 | Emergency (ER) | payer MEDICAID, SELFPAY ==
[2024-08-07 19:07] VITALS: BP 138/87; PULSE 74; RESP 18; TEMP 36.5; O2SAT 96
[2024-08-07 19:37] LABS: Urine Appearance Cloudy (CLEAR); Urine Color Red (Yellow); pH Urine 6 (5-7)
[2024-08-07 19:38] LABS: Bilirubin Urine 1+ (Negative); Blood Urine 3+ (Negative); Glucose Urine UA Norm (Normal); Ketones Urine Negative (Negative); Leukocyte Esterase Urine Negative (Negative); Nitrate Urine Negative (Negative); Protein Urine 3+ (Negative); Urobilinogen Urine 1 mg/dL (Negative)
[2024-08-07 19:40] LABS: Add Urine Microscopic? YES
[2024-08-07 19:41] LABS: Add Urine Culture? Yes; Bacteria Urine TRACE /hpf; Mucus Urine TRACE /hpf; RBC Urine TOO NUMEROUS TO CNT /hpf (0-2); Squamous Epithelial Cell Urine 0-4 /hpf (0-5)
== END 2024-08-07 21:26 | disposition left against medical advice (07) ==
PROVIDERS: Emergency Medicine; Emergency Provider Family Medicine; PCP Family Medicine Adult Medicine
DX: Z53.21 Procedure and treatment not carried out due to patient leaving prior to being seen by health care provider (principal)
CPT/HCPCS: 81001; 87086

== ENCOUNTER → 2024-08-08 17:20 | Outpatient (BNVA) | payer MEDICAID, SELFPAY | PROVIDERS: PCP Family Medicine Adult Medicine; Visit Provider Emergency Medicine | DX: R39.9 Unspecified symptoms and signs involving the genitourinary system (principal) | CPT/HCPCS: 81000; 87086 ==

== ENCOUNTER → 2024-08-15 15:24 | Outpatient (BNVA) | payer MEDICAID, SELFPAY | DX: R39.9 Unspecified symptoms and signs involving the genitourinary system (principal) | CPT/HCPCS: 81000 ==

== ENCOUNTER 2024-08-28 09:02 | Emergency (ER) | payer MEDICAID, SELFPAY ==
[2024-08-28 09:04] VITALS: BP 173/126; PULSE 98; RESP 18; TEMP 36.8; O2SAT 95; BMI 42.7
--- NOTE | 2024-08-28 09:07 | W.ED.ABDPA2 ---
HPI - Abdominal Pain General: Chief Complaint: Nausea/Vomiting/Diarrhea Stated Complaint: ABD PAIN Time Seen by Provider: 08/28/24 09:05 History of Present Illness: 39-year-old mal presents emergency room with complaint of right upper quadrant abdominal pain persistent nausea and vomiting. He denies any fever sweats chills. She has been going for several days now. Denies any hematuria he has known history of nephrolithiasis but has not had any stones passed recently. He is having some right flank pain at this time. Associated Symptoms: Reports nausea and vomiting; Denies chills, dysuria, fever(s), hematochezia and hematemesis Related Data Previous Rx's Medication Instructions Recorded ondansetron 8 mg disintegrating 8 mg PO Q8H PRN nausea and 08/08/24 tablet vomiting 5 days #15 tabs ketorolac 10 mg tablet 10 mg PO Q8H #14 tabs 08/15/24 tamsulosin 0.4 mg capsule (Flomax) 0.4 mg PO DAILY #30 caps 08/15/24 hydrocodone 5 mg-acetaminophen 325 1 tab PO Q6H PRN pain #20 tabs 08/28/24 mg tablet promethazine 25 mg tablet 20 mg (0.8 x 25 mg) PO Q6H PRN 08/28/24 nausea and vomiting #20 tabs Allergies Allergy/AdvReac Type Severity Reaction Status Date / Time topiramate [From Topamax] Allergy Unknown Verified 08/15/24 15:14 Review of Systems Const: Denies: fever(s) or chills Card: Denies: chest pain Resp: Denies: dyspnea GI: Reports: abdominal pain, nausea and vomiting; Denies: hematemesis or hematochezia : Denies: dysuria, urinary frequency or urinary urgency Musc: Denies: neck pain or back pain Skin/Breast: Denies: rash PFSH ED PFSH: Medical History Weight gain, abnormal Morbid obesity History of MRSA infection leg and face Hypercholesteremia Depression determined by examination Abscess of lip COVID-19 07/11/2021 positive test Cellulitis Abscess of skin of right wrist Left ankle pain Surgical History History of hand surgery Reconstruction, left hand History of foot surgery History of carpal tunnel surgery Left wrist Family History Other Cancer Diabetes Social History Smoking and tobacco/nicotine status: never used tobacco/nicotine Second hand smoke exposure: Yes Alcohol intake: never Substance/Drug Use: never Lives independently: Yes Household members: spouse Marital status: Number of children: 2 Current occupational status: employed and unemployed Current gender identity: Male Physical Exam Const: GENERAL APPEARANCE: cooperative ORIENTATION/CONSCIOUSNESS: Yes awake, Yes oriented to person, Yes oriented to place and Yes oriented to time HENMT: COMMON NORMALS: normocephalic, atraumatic and hearing grossly normal bilaterally HEAD & SCALP: normocephalic and atraumatic Resp: COMMON NORMALS: normal respiratory effort, No retractions, No use of accessory muscles and clear to auscultation bilaterally AUSCULTATION: clear to auscultation bilaterally Cardio: COMMON NORMALS: regular rate, regular rhythm and No murmurs present (Cardio) RATE: regular rate RHYTHM: regular rhythm GI: COMMON NORMALS: Soft to palpation and No hepatosplenomegaly present AUSCULTATION: Yes normoactive bowel sounds PALPATION: Yes Soft to palpation, No Tenderness to palpation present (GI), No Guarding due to palpation present (GI) and Yes No hepatosplenomegaly present Extremity: COMMON NORMALS: normal to inspection, capillary refill normal, no clubbing, cyanosis or edema, no calf tenderness and no pedal edema Neuro: SENSORIUM/ORIENTATION: Yes oriented to person, Yes oriented to place and Yes oriented to time Skin: COMMON NORMALS: no rashes or lesions noted GENERAL SKIN EXAM: no rashes or lesions noted Course Vital Signs: Vital signs: Vital Signs Temperature 98.3 F 08/28/24 09:04 Pulse Rate 78 08/28/24 13:48 Respiratory Rate 18 08/28/24 09:04 Blood Pressure 124/71 08/28/24 13:48 Pulse Oximetry 98 08/28/24 13:48 Oxygen Delivery Me thod Room Air 08/28/24 13:09 MDM - Abdominal Pain Medical Decision Making Previous imaging on the CT they noted gallstones however none were noted at this time. CT today did not show any acute pathology. He does have nephrolithiasis but there is nothing in the ureter. His symptoms are improved after antiemetics and pain medications. Suspect given his presentation patient may have biliary dyskinesia. He has no abnormal liver enzymes did have right upper quadrant pain pain. Will discharge home discussed dietary adjustments. Will discharge with promethazine hydrocodone. Will set patient up for a HIDA scan and follow-up with general surgery Medical Records I reviewed the patient's medical records. Lab Data I reviewed the patient's lab results. 08/28/24 09:20 08/28/24 09:20 Labs/Radiology: Radiology Impressions Abdomen/Pelvis CT 08/28/24 09:13 IMPRESSION: 1. Limited noncontrast examination without CT evidence of acute intra-abdominal or pelvic pathology. 2. Additional findings, as above. Laboratory Results WBC 13.72 10^3/uL (3.29-11.43) H 08/28/24 09:20 RBC 5.66 10^6/uL (3.85-5.65) H 08/28/24 09:20 Hgb 15.90 g/dL (11.27-16.99) 08/28/24 09:20 Hct 48.9 % (37-53) 08/28/24 09:20 MCV 86.4 fl (82-101) 08/28/24 09:20 MCH 28.1 pg (27-33) 08/28/24 09:20 MCHC 32.5 g/dL (30-55) 08/28/24 09:20 RDW 13.1 % (12.1-15.1) 08/28/24 09:20 Plt Count 271 10^3/cmm (157-399) 08/28/24 09:20 MPV 11.4 fL (7.4-10.4) H 08/28/24 09:20 Neut % (Auto) 66.7 % 08/28/24 09:20 Lymph % (Auto) 25.7 % 08/28/24 09:20 [place] % (Auto) 6.8 % 08/28/24 09:20 Eos % (Auto) 0.1 % 08/28/24 09:20 Baso % (Auto) 0.4 % 08/28/24 09:20 Neut # (Auto) 9.14 10^3/uL (1.8-7.7) H 08/28/24 09:20 Lymph # (Auto) 3.5 10^3/uL (0.8-4.8) 08/28/24 09:20 [place] # (Auto) 0.9 10^3/uL (0.2-0.9) 08/28/24 09:20 Eos # (Auto) 0.0 10^3/uL (0.0-0.8) 08/28/24 09:20 Baso # (Auto) 0.1 10^3/uL (0.0-0.1) 08/28/24 09:20 Nucleated RBC % (auto) 0 % 08/28/24 09:20 Nucleated RBCs # 0.0 /100WBC 08/28/24 09:20 Sodium 135 mmol/L (136-145) L 08/28/24 09:20 Potassium 3.6 mmol/L (3.5-5.1) 08/28/24 09:20 Chloride 98 mmol/L (98-107) 08/28/24 09:20 Carbon Dioxide 23 mmol/L (22-29) 08/28/24 09:20 Anion Gap 17.6 (5-19) 08/28/24 09:20 BUN 12 mg/dL (6-20) 08/28/24 09:20 Creatinine 0.9 mg/dL (0.7-1.2) 08/28/24 09:20 GFR Calculation 95.0 mL/min (90-130) 08/28/24 09:20 Glucose 133 mg/dL (65-115) H 08/28/24 09:20 Calculated Osmolality 282 mOsm/kg (285-295) L 08/28/24 09:20 Calcium 9.8 mg/dL (8.5-10.5) 08/28/24 09:20 Total Bilirubin 0.6 mg/dL (0.15-1.2) 08/28/24 09:20 AST 24 U/L (0-40) 08/28/24 09:20 ALT 28 U/L (0-41) 08/28/24 09:20 Alkaline Phosphatase 106 U/L (40-130) 08/28/24 09:20 Total Protein 8.0 g/dL (6.6-8.7) 08/28/24 09:20 Albumin 4.3 g/dL (3.5-5.2) 08/28/24 09:20 Globulin 3.7 g/dL (1.3-4.6) 08/28/24 09:20 Lipase 37 U/L (13-60) 08/28/24 09:20 Urine Color Dark yellow (Yellow) A 08/28/24 12:08 Urine Appearance Cloudy (CLEAR) A 08/28/24 12:08 Urine pH 5.5 (5-7) 08/28/24 12:08 Ur Specific [place] 1.030 (1.005-1.030) 08/28/24 12:08 Urine Protein Trace (Negative) A 08/28/24 12:08 Urine Glucose (UA) Negative (Normal) 08/28/24 12:08 Urine Ketones 1+ (Negative) H 08/28/24 12:08 Urine Blood Negative (Negative) 08/28/24 12:08 Urine Nitrate Negative (Negative) 08/28/24 12:08 Urine Bilirubin 1+ (Negative) H 08/28/24 12:08 Urine Urobilinogen 1.0 mg/dL (Negative) 08/28/24 12:08 Ur Leukocyte Esterase Negative (Negative) 08/28/24 12:08 Urine RBC 0-2 /hpf (0-2) 08/28/24 12:08 Urine WBC 0-5 /hpf (0-5) 08/28/24 12:08 Ur Squamous Epith Cells 0-5 /hpf (0-5) 08/28/24 12:08 Amorphous Sediment Not Reportable 08/28/24 12:08 Urine Bacteria None seen /hpf (NONE) 08/28/24 12:08 Hyaline Casts 4.95 /lpf 08/28/24 12:08 All radiology interpretation(s) finalized by discharge Discharge Plan Discharge Patient Disposition: Home Clinical Impression: Biliary dyskinesia Condition: Stable Prescriptions: New hydrocodone-acetaminophen 5-325 mg tablet 1 tab PO Q6H PRN (Reason: pain) Qty: 20 0RF promethazine 25 mg tablet 20 mg PO Q6H PRN (Reason: nausea and vomiting) Qty: 20 0RF No Action ondansetron 8 mg tablet,disintegrating 8 mg PO Q8H PRN (Reason: nausea and vomiting) 5 Days Qty: 15 0RF tamsulosin [Flomax] 0.4 mg capsule 0.4 mg PO DAILY Qty: 30 1RF ketorolac 10 mg tablet 10 mg PO Q8H Qty: 14 0RF Rx Instructions: maximum total duration of 5 days from all oral, intranasal, or parenteral formulations Discharge Orders: Discharge ED (Routine); Ordered 08/28/24 Ordered By: Munir Salazar Discharge Diet: Usual diet Discharge Activity: Resume usual activity Patient Instructions: Opioid Safety, Pain Management Activity Restrictions/Additional Instructions: Thank you for choosing [facility] for your healthcare needs today. It is very important that you follow up as instructed or that you return to the Emergency Department should you have concerns or if your condition changes or worsens in any way. You are seen today with complaint of right sided abdominal pain. Imaging did not show anything acute here liver enzymes were normal however your white count was slightly elevated this is likely from protracted nausea. CT did not show any acute pathology. Based on your presenting symptoms suspect you have biliary dyskinesia. We discharged home with pain and nausea medications recommend clear liquid diet for next 24 to 48 hours and advance as tolerated. Case management make arrangements for you to follow-up with general surgery and have an outpatient HIDA scan. The HIDA scan test how well your gallbladder functions. If the gallbladder is not functioning properly will cause the same symptoms as if it is blocked or infected. There was no sign of blockage or infection today in the emergency room. Coding Level of Care Code ED Ccna for Adal Suarez
--- NOTE | 2024-08-28 09:13 | CTR_ITS ---
PROCEDURE INFORMATION: Exam: CT Abdomen And Pelvis Without Contrast Exam date and time: 08/28/2024 11:03 AM Age: 39 years old Clinical indication: Other: Flank pain TECHNIQUE: Imaging protocol: Computed tomography of the abdomen and pelvis without contrast. Axial, coronal and sagittal reformatted images were created and reviewed. Radiation optimization: All CT scans at this facility use at least one of these dose optimization techniques: automated exposure control; mA and/or kV adjustment per patient size (includes targeted exams where dose is matched to clinical indication); or iterative reconstruction. COMPARISON: CT abdomen pelvis w con* [id number] 07/18/2024 3:33 PM RADIATION DOSE METRICS: Total DLP (mGy-cm): 1448.53 FINDINGS: Lungs: Linear stranding and groundglass at the lung bases, likely due to atelectasis and/or scarring. Diaphragm: Elevated right hemidiaphragm. Liver: Mild hepatomegaly. Gallbladder and biliary ducts: No radiodense gallstones. No biliary ductal dilatation. Pancreas: Unremarkable. Spleen: Mild splenomegaly. Adrenal glands: Normal. No mass. Kidneys and ureters: Nonobstructing bilateral renal calculi. No hydronephrosis. Stomach and bowel: Moderate amount of retained stool in the colon. No obstruction. No bowel wall thickening. No pneumatosis. Appendix: Normal. Intraperitoneal space: No free fluid. No organized fluid collection. No free air. Vasculature: Unremarkable. No aneurysm. Lymph nodes: No pathologically enlarged lymph nodes. Urinary bladder: Unremarkable as visualized. Reproductive: Unremarkable. Bones/joints: No acute osseous abnormality. Mild degenerative changes. Soft tissues: Unremarkable. CT/CT kidney stone [id number] IMPRESSION: 1. Limited noncontrast examination without CT evidence of acute intra-abdominal or pelvic pathology. 2. Additional findings, as above.
[2024-08-28] MEDS: sodium chloride 0.9% 1,000 ML 999 ML IV ×2 (09:17→12:04)
[2024-08-28] MEDS: haloperidol inj 5 mg/mL INJ 1 mL 2.5 MG IVP (09:17)
[2024-08-28] MEDS: LORazepam 2 mg/mL INJ 1 mL IVP (09:17)
[2024-08-28] MEDS: ketorolac 30 mg/mL INJ IVP ×2 (09:29→13:27)
[2024-08-28 09:33] VITALS: PULSE 79; O2SAT 95
[2024-08-28 09:38] VITALS: BP 122/71
[2024-08-28 09:41] LABS: Basophils # 0.1 10^3/uL (0.0-0.1); Basophils % 0.4 %; Eosinophils % 0.1 %; Hematocrit 48.9 % (37-53); Lymphocytes # 3.5 10^3/uL (0.8-4.8); Lymphocytes % 25.7 %; Mean Corpuscular HGB Conc 32.5 g/dL (30-55); Mean Corpuscular Hemoglobin 28.1 pg (27-33); Mean Corpuscular Volume 86.4 fl (82-101); Mean Platelet Volume 11.4 fL (7.4-10.4); Monocytes # 0.9 10^3/uL (0.2-0.9); Monocytes % 6.8 %; Neutrophils # 9.14 10^3/uL (1.8-7.7); Neutrophils % 66.7 %; Nucleated Red Blood Cells % 0 %; Platelet Count 271 10^3/cmm (157-399); Red Blood Count 5.66 10^6/uL (3.85-5.65); Red Cell Distribution Width 13.1 % (12.1-15.1); White Blood Count 13.72 10^3/uL (3.29-11.43)
[2024-08-28 09:45] LABS: Alanine Aminotransferase 28 U/L (0-41); Albumin Level 4.3 g/dL (3.5-5.2); Alkaline Phosphatase 106 U/L (40-130); Anion Gap 17.6 (5-19); Aspartate Amino Transferase 24 U/L (0-40); Blood Urea Nitrogen 12 mg/dL (6-20); Calcium 9.8 mg/dL (8.5-10.5); Carbon Dioxide 23 mmol/L (22-29); Chloride 98 mmol/L (98-107); Creatinine Clr Calc Pharmacy 164.8521; Globulin 3.7 g/dL (1.3-4.6); Glucose 133 mg/dL (65-115); Lipase 37 U/L (13-60); Osmolality Calculated 282 mOsm/kg (285-295); Potassium 3.6 mmol/L (3.5-5.1); Sodium 135 mmol/L (136-145); Total Bilirubin 0.6 mg/dL (0.15-1.2)
[2024-08-28 12:10] VITALS: BP 113/70; PULSE 71; O2SAT 99
[2024-08-28 12:30] LABS: Bilirubin Urine 1+ (Negative); Blood Urine Negative (Negative); Glucose Urine UA Negative (Normal); Ketones Urine 1+ (Negative); Leukocyte Esterase Urine Negative (Negative); Nitrate Urine Negative (Negative); Protein Urine Trace (Negative); Urine Appearance Cloudy (CLEAR); Urine Color Dark Yellow (Yellow); pH Urine 5.5 (5-7)
[2024-08-28 12:35] LABS: Add Urine Microscopic? YES; Bacteria Urine None Seen /hpf; Hyaline Casts Urine 4.95 /lpf; RBC Urine 0-2 /hpf (0-2); Squamous Epithelial Cell Urine 0-5 /hpf (0-5); WBC Urine 0-5 /hpf (0-5)
[2024-08-28 13:09] VITALS: BP 116/74; PULSE 74; O2SAT 99
[2024-08-28 13:48] VITALS: BP 124/71; PULSE 78; O2SAT 98
--- NOTE | 2024-08-29 09:12 | DCPLANNER ---
Message sent to General Surgery for follow up - abdominal pain
== END 2024-08-28 13:50 | disposition home or self-care (01) ==
PROVIDERS: Emergency Provider Family Medicine
DX: K82.8 Other specified diseases of gallbladder (principal); Z77.22 Contact with and (suspected) exposure to environmental tobacco smoke (acute) (chronic)
CPT/HCPCS: 74176; 80053; 81001; 83690; 85025; 96361; 96374; 96375; 96376; 99285; J1630; J1885; J2060; J7030

== ENCOUNTER 2024-09-08 09:31 | Outpatient (CLI) | payer MEDICAID, SELFPAY ==
--- NOTE | 2024-09-08 10:00 | NM_ITS ---
WS: [id number] NUCLEAR MEDICINE HIDA SCAN WITH GALLBLADDER EJECTION FRACTION HISTORY: RUQ PAIN COMPARISON: CT 07/18/2024 and 08/28/2024 TECHNIQUE: The patient was intravenously injected with 7.6 mCi of TC99m Mebrofenin. Immediate imaging over the right upper quadrant was followed by 5 minute image and additional images for a total of 60 minutes. Normal uptake of radiotracer throughout the liver. Decreased uptake along the RIGHT lobe of the liver is probably due to overlying body habitus. Activity identified in the gallbladder at 30 minutes and well distended by 60 minutes. Activity in the proximal small bowel was seen by 40 minutes. Good washout of the radiotracer from the liver by 60 minutes. The patient then drank 8 ounces of Ensure Plus. Ejection fraction at 60 minutes was 96%. Normal GB ej ection fraction is 35-75%. Post fatty meal symptoms: None. NM/NM hepatobiliary w phar* [id number] IMPRESSION: 1. Normal HIDA scan. 2. Normal gallbladder ejection fraction.
== END 2024-09-08 09:32 | disposition home or self-care (01) ==
PROVIDERS: PCP Surgery; Visit Provider Family Medicine
DX: K82.8 Other specified diseases of gallbladder (principal)
CPT/HCPCS: 78227; A9537

== ENCOUNTER 2024-09-10 02:34 | Emergency (ER) | payer MEDICAID, SELFPAY ==
[2024-09-10 02:35] VITALS: BP 126/75; PULSE 83; RESP 20; TEMP 37.3; O2SAT 100; BMI 40.6
[2024-09-10 02:46] VITALS: BP 126/75; RESP 18; O2SAT 98
[2024-09-10 03:03] LABS: Basophils # 0.1 10^3/uL (0.0-0.1); Basophils % 0.4 %; Eosinophils # 0.3 10^3/uL (0.0-0.8); Eosinophils % 2.3 %; Lymphocytes # 2.4 10^3/uL (0.8-4.8); Lymphocytes % 18.6 %; Mean Corpuscular HGB Conc 31.9 g/dL (30-55); Mean Corpuscular Volume 87.8 fl (82-101); Mean Platelet Volume 11.6 fL (7.4-10.4); Monocytes # 0.9 10^3/uL (0.2-0.9); Monocytes % 6.8 %; Neutrophils # 9.19 10^3/uL (1.8-7.7); Neutrophils % 71.6 %; Nucleated Red Blood Cells % 0 %; Platelet Count 230 10^3/cmm (157-399); Red Cell Distribution Width 13.2 % (12.1-15.1); White Blood Count 12.82 10^3/uL (3.29-11.43)
[2024-09-10] MEDS: ondansetron 2 mg/ML SDV 2 mL 4 MG IVP (03:12)
[2024-09-10] MEDS: HYDROmorphone 1 mg/mL INJ 1 mL 0.5 MG IVP (03:12)
[2024-09-10 03:15] VITALS: PULSE 89; RESP 18; O2SAT 99
[2024-09-10 03:16] LABS: Anion Gap 14.3 (5-19); Blood Urea Nitrogen 8 mg/dL (6-20); Calcium 9.2 mg/dL (8.5-10.5); Carbon Dioxide 23 mmol/L (22-29); Chloride 104 mmol/L (98-107); Creatinine Clr Calc Pharmacy 160.5261; Glucose 128 mg/dL (65-115); Lipase 41 U/L (13-60); Osmolality Calculated 286 mOsm/kg (285-295); Potassium 3.3 mmol/L (3.5-5.1); Sodium 138 mmol/L (136-145)
[2024-09-10 03:27] LABS: Alanine Aminotransferase 23 U/L (0-41); Albumin Level 3.8 g/dL (3.5-5.2); Alkaline Phosphatase 97 U/L (40-130); Aspartate Amino Transferase 19 U/L (0-40); Globulin 3.4 g/dL (1.3-4.6); Total Bilirubin 0.3 mg/dL (0.15-1.2); Total Protein 7.2 g/dL (6.6-8.7)
[2024-09-10 03:47] VITALS: BP 109/61; PULSE 96; RESP 18; O2SAT 97
--- NOTE | 2024-09-10 18:38 | ED_ITS ---
HPI - Abdominal Pain 2 General: Chief Complaint: Abdominal Pain Stated Complaint: ABD PAIN Time Seen by Provider: 09/10/24 02:57 History of Present Illness: This patient is a 39-year-old white male who presents to the emergency department stating that his gallbladder is acting up. He developed epigastric and right upper quadrant pain 3 hours prior to arrival. Patient states he has known gallstones. He has an appointment with a surgeon on the of this month. He has not had any nausea or vomiting. No constipation or diarrhea. No fever. Related Data Previous Rx's Medication Instructions Recorded ondansetron 8 mg disintegrating 8 mg PO Q8H PRN nausea and 08/08/24 tablet vomiting 5 days #15 tabs ketorolac 10 mg tablet 10 mg PO Q8H #14 tabs 08/15/24 tamsulosin 0.4 mg capsule (Flomax) 0.4 mg PO DAILY #30 caps 08/15/24 hydrocodone 5 mg-acetaminophen 325 1 tab PO Q6H PRN pain #20 tabs 08/28/24 mg tablet promethazine 25 mg tablet 20 mg (0.8 x 25 mg) PO Q6H PRN 08/28/24 nausea and vomiting #20 tabs hydrocodone 5 mg-acetaminophen 325 1 tab PO Q4H PRN pain #10 tabs 09/10/24 mg tablet Allergies Allergy/AdvReac Type Severity Reaction Status Date / Time topiramate [From Topamax] Allergy Unknown Verified 09/03/24 13:21 Review of Systems 2 General: Reports: 10 or more systems reviewed and unremarkable except in HPI and below GI: Reports: abdominal pain PFSH ED 2 PFSH: Medical History Weight gain, abnormal Morbid obesity History of MRSA infection leg and face Hypercholesteremia Depression determined by examination Abscess of lip COVID-19 07/11/2021 positive test Cellulitis Abscess of skin of right wrist Left ankle pain Surgical History History of hand surgery Reconstruction, left hand History of foot surgery History of carpal tunnel surgery Left wrist Family History Other Cancer Diabetes Social History Smoking and tobacco/nicotine status: never used tobacco/nicotine Second hand smoke exposure: Yes Alcohol intake: never Substance/Drug Use: never Lives independently: Yes Household members: spouse Marital status: Number of children: 2 Current occupational status: employed and unemployed Current gender identity: Male Physical Exam 2 Const: COMMON NORMALS: patient oriented x3 and no limitations GENERAL APPEARANCE: cooperative HENMT: COMMON NORMALS: normocephalic, atraumatic, Normal nasal mucous membranes and turbinates present, moist oral mucous membranes and oropharynx normal HEAD & SCALP: normal to inspection, normocephalic and atraumatic F CALLIE & SINUS: normal facial exam NOSE: Normal nasal mucous membranes and turbinates present Eye: COMMON NORMALS: Equal, round and reactive pupils present, EOMs intact bilaterally and conjunctivae normal GENERAL EYE: appearance normal, both eyes and all related structures CONJUNCTIVA: Yes conjunctivae normal PUPIL: Yes Equal, round and reactive pupils present Neck/C-Spine: COMMON NORMALS: supple and no JVD Chest: COMMONS NORMALS: normal inspection of the chest Resp: COMMON NORMALS: normal respiratory effort and clear to auscultation bilaterally AUSCULTATION: clear to auscultation bilaterally Cardio: COMMON NORMALS: no JVD, regular rate, regular rhythm, No gallops present (Cardio), No murmurs present (Cardio) and No rub (Cardio) RATE: r egular rate RHYTHM: regular rhythm GI: COMMON NORMALS: Soft to palpation AUSCULTATION: Yes normoactive bowel sounds PALPATION: Yes Soft to palpation and Yes Tenderness to palpation present (GI) Details: RUQ : COMMON NORMALS: Yes no CVA tenderness BLADDER/KIDNEY EXAM: Yes no CVA tenderness Back/Pelvis: COMMON NORMALS: no CVA tenderness and thoracic and lumbar spine normal to inspection Extremity: COMMON NORMALS: normal to inspection Neuro: COMMON NORMALS: patient oriented x3 and CN's II-XII intact bilaterally Psych: COMMON NORMALS: mental status grossly normal, Normal thought process present and cooperative THOUGHT PROCESS: Normal thought process present Skin: COMMON NORMALS: no rashes or lesions noted, turgor normal and no jaundice GENERAL SKIN EXAM: no rashes or lesions noted and turgor normal Course 2 Vital Signs: Vital signs: Vital Signs Temperature 99.1 F 09/10/24 02:35 Pulse Rate 96 09/10/24 03:47 Respiratory Rate 18 09/10/24 03:47 Blood Pressure 109/61 09/10/24 03:47 Pulse Oximetry 97 09/10/24 03:47 Oxygen Delivery Me thod Room Air 09/10/24 03:15 MDM - Abdominal Pain Medical Decision Making CBC reveals white blood cell count of 12.8. CMP was normal. Lipase normal at 41. Patient was given 0.5 mg of Dilaudid IV, 4 mg of Zofran IV and 1 L bolus of normal saline. He is feeling significantly better. He was subsequently discharged with a prescription for hydrocodone. Follow-up with his surgery appointment in 3 days as previously scheduled. Lab Data 09/10/24 02:15 09/10/24 02:15 Labs/Radiology: Laboratory Results WBC 12.82 10^3/uL (3.29-11.43) H 09/10/24 02:15 RBC 4.90 10^6/uL (3.85-5.65) 09/10/24 02:15 Hgb 13.70 g/dL (11.27-16.99) 09/10/24 02:15 Hct 43.0 % (37-53) 09/10/24 02:15 MCV 87.8 fl (82-101) 09/10/24 02:15 MCH 28.0 pg (27-33) 09/10/24 02:15 MCHC 31.9 g/dL (30-55) 09/10/24 02:15 RDW 13.2 % (12.1-15.1) 09/10/24 02:15 Plt Count 230 10^3/cmm (157-399) 09/10/24 02:15 MPV 11.6 fL (7.4-10.4) H 09/10/24 02:15 Neut % (Auto) 71.6 % 09/10/24 02:15 Lymph % (Auto) 18.6 % 09/10/24 02:15 [place] % (Auto) 6.8 % 09/10/24 02:15 Eos % (Auto) 2.3 % 09/10/24 02:15 Baso % (Auto) 0.4 % 09/10/24 02:15 Neut # (Auto) 9.19 10^3/uL (1.8-7.7) H 09/10/24 02:15 Lymph # (Auto) 2.4 10^3/uL (0.8-4.8) 09/10/24 02:15 [place] # (Auto) 0.9 10^3/uL (0.2-0.9) 09/10/24 02:15 Eos # (Auto) 0.3 10^3/uL (0.0-0.8) 09/10/24 02:15 Baso # (Auto) 0.1 10^3/uL (0.0-0.1) 09/10/24 02:15 Nucleated RBC % (auto) 0 % 09/10/24 02:15 Nucleated RBCs # 0.0 /100WBC 09/10/24 02:15 Sodium 138 mmol/L (136-145) 09/10/24 02:15 Potassium 3.3 mmol/L (3.5-5.1) L 09/10/24 02:15 Chloride 104 mmol/L (98-107) 09/10/24 02:15 Carbon Dioxide 23 mmol/L (22-29) 09/10/24 02:15 Anion Gap 14.3 (5-19) 09/10/24 02:15 BUN 8 mg/dL (6-20) 09/10/24 02:15 Creatinine 0.9 mg/dL (0.7-1.2) 09/10/24 02:15 GFR Calculation 95.0 mL/min (90-130) 09/10/24 02:15 Glucose 128 mg/dL (65-115) H 09/10/24 02:15 Calculated Osmolality 286 mOsm/kg (285-295) 09/10/24 02:15 Calcium 9.2 mg/dL (8.5-10.5) 09/10/24 02:15 Total Bilirubin 0.3 mg/dL (0.15-1.2) 09/10/24 02:15 AST 19 U/L (0-40) 09/10/24 02:15 ALT 23 U/L (0-41) 09/10/24 02:15 Alkaline Phosphatase 97 U/L (40-130) 09/10/24 02:15 Total Protein 7.2 g/dL (6.6-8.7) 09/10/24 02:15 Albumin 3.8 g/dL (3.5-5.2) 09/10/24 02:15 Globulin 3.4 g/dL (1.3-4.6) 09/10/24 02:15 Lipase 41 U/L (13-60) 09/10/24 02:15 No radiology studies performed this visit Discharge Plan Discharge Patient Disposition: Home Clinical Impression: Abdominal pain Condition: Stable Prescriptions: New hydrocodone-acetaminophen 5-325 mg tablet 1 tab PO Q4H PRN (Reason: pain) Qty: 10 0RF No Action ondansetron 8 mg tablet,disintegrating 8 mg PO Q8H PRN (Reason: nausea and vomiting) 5 Days Qty: 15 0RF tamsulosin [Flomax] 0.4 mg capsule 0.4 mg PO DAILY Qty: 30 1RF ketorolac 10 mg tablet 10 mg PO Q8H Qty: 14 0RF Rx Instructions: maximum total duration of 5 days from all oral, intranasal, or parenteral formulations hydrocodone-acetaminophen 5-325 mg tablet 1 tab PO Q6H PRN (Reason: pain) Qty: 20 0RF promethazine 25 mg tablet 20 mg PO Q6H PRN (Reason: nausea and vomiting) Qty: 20 0RF Discharge Orders: Discharge ED (Routine); Ordered 09/10/24 Ordered By: Alfonso Osborne Referrals: Krista Rushing FNP [Primary Care Provider] - Patient Instructions: Abdominal Pain (ED), Opioid Safety, Pain Management Coding Level of Care Code ED Licensed Mortician for Adal Suarez
== END 2024-09-10 03:48 | disposition home or self-care (01) ==
PROVIDERS: Emergency Provider Emergency Medicine; PCP Nurse Practitioner Family
DX: R10.13 Epigastric pain (principal); R10.11 Right upper quadrant pain; Z77.22 Contact with and (suspected) exposure to environmental tobacco smoke (acute) (chronic)
CPT/HCPCS: 80053; 83690; 85025; 96374; 96375; 99284; J1170; J2405

== ENCOUNTER 2024-10-27 10:56 | Emergency (ER) | payer BC, MEDICAID, SELFPAY ==
--- NOTE | 2024-10-27 10:58 | CT_ITS ---
WS: [id number] CT HEAD TECHNIQUE: Noncontrast CT of the head obtained from the skullbase to the vertex. CLINICAL INFORMATION: injury COMPARISON: 2022 DLP: 1131.[address] scans at [facility] use at least one of these dose optimization techniques: automated e xposure control; mA and/or kV adjustment per patient size (includes targeted exams where dose is matc hed to clinical indication); or iterative reconstruction. FINDINGS: No evidence of intracranial hemorrhage or mass effect. Ventricular system and basal cisterns are molina nt. No extra-axial fluid collections. No evidence of mass or mass effect. Normal perdomo-white different iation. Paranasal sinuses and mastoid air cells are well aerated. .Normal visualized soft tissues. CT/CT head wo con* [id number] IMPRESSION: 1. No evidence of intracranial hemorrhage or mass effect. 2. No acute intracranial findings.
[2024-10-27 11:23] VITALS: BP 106/70; PULSE 90; RESP 16; TEMP 36.6; O2SAT 95; BMI 42.7
[2024-10-27 12:45] VITALS: BP 150/100; PULSE 95; RESP 16; O2SAT 95
--- NOTE | 2024-10-27 12:53 | W.ED.HEATRA ---
HPI - Head Injury General: Chief complaint: Head Injury Stated complaint: hit head Time Seen by Provider: 10/27/24 11:56 Source: patient and EMS Mode of arrival: EMS Limitations: no limitations History of Present Illness: 39-year-old male who states that he was playing with his kids this morning at 7 AM states he had fell backwards hit his head on his coffee table. He denies any loss conscious states been having headache along with nausea since then states headache sharp posterior rates it a 6 out of 10 he denies any worse improved factors denies any neck pain. Associated symptoms: Reports nausea and vomiting; Deny neck pain Related Data Previous Rx's Medication Instructions Recorded ondansetron 8 mg disintegrating 8 mg PO Q8H PRN nausea and 08/08/24 tablet vomiting 5 days #15 tabs ketorolac 10 mg tablet 10 mg PO Q8H #14 tabs 08/15/24 tamsulosin 0.4 mg capsule (Flomax) 0.4 mg PO DAILY #30 caps 08/15/24 hydrocodone 5 mg-acetaminophen 325 1 tab PO Q6H PRN pain #20 tabs 08/28/24 mg tablet promethazine 25 mg tablet 20 mg (0.8 x 25 mg) PO Q6H PRN 08/28/24 nausea and vomiting #20 tabs hydrocodone 5 mg-acetaminophen 325 1 tab PO Q4H PRN pain #10 tabs 09/10/24 mg tablet amoxicillin 875 mg-potassium 1 tab PO BID 5 days #10 tabs 09/13/24 clavulanate 125 mg tablet ketorolac 10 mg tablet 10 mg PO Q8H PRN pain 10 days #30 09/13/24 tabs ondansetron 8 mg disintegrating 8 mg PO Q8H PRN nausea and 09/13/24 tablet vomiting 5 days #20 tabs pantoprazole 40 mg tablet,delayed See Rx Instructions .Route 10/09/24 release .COMPLEX #60 tabs Allergies Allergy/AdvReac Type Severity Reaction Status Date / Time topiramate [From Topamax] Allergy Unknown Verified 09/13/24 10:06 Review of Systems Const: Denies: fever(s), chills, body aches or change in appetite ENMT: Denies: throat pain or dental pain Card: Denies: chest pain Resp: Denies: dyspnea GI: Reports: nausea and vomiting; Denies: abdominal pain or diarrhea : Denies: dysuria Musc: Denies: neck pain or back pain Skin/Breast: Denies: rash Neuro: Reports: headache(s) PFSH ED PFSH: Medical History Weight gain, abnormal Morbid obesity History of MRSA infection leg and face Hypercholesteremia Depression determined by examination Abscess of lip COVID-19 07/11/2021 positive test Cellulitis Abscess of skin of right wrist Left ankle pain Surgical History History of hand surgery Reconstruction, left hand History of foot surgery History of carpal tunnel surgery Left wrist Family History Other Cancer Diabetes Social History Smoking and tobacco/nicotine status: never used tobacco/nicotine Second hand smoke exposure: Yes Alcohol intake: never Substance/Drug Use: never Lives independently: Yes Household members: spouse Marital status: Number of children: 2 Current occupational status: employed and unemployed Current gender identity: Male Physical Exam Const: COMMON NORMALS: no acute distress, patient oriented x3 and healthy appearing HENMT: COMMON NORMALS: normocephalic HEAD & SCALP: normocephalic OTHER: posterior scalp tenderness Eye: COMMON NORMALS: Equal, round and reactive pupils present and EOMs intact bilaterally PUPIL: Yes Equal, round and reactive pupils present Neck/C-Spine: COMMON NORMALS: full ROM and supple Chest: COMMONS NORMALS: normal inspection of the chest Resp: COMMON NORMALS: normal respiratory effort Cardio: COMMON NORMALS: regular rate RATE: regular rate Extremity: COMMON NORMALS: normal to inspection and full ROM Neuro: COMMON NORMALS: patient oriented x3, moves all extremities and no focal motor deficits Psych: COMMON NORMALS: mental status grossly normal, Normal thought process present and cooperative THOUGHT PROCESS: Normal thought process present Skin: COMMON NORMALS: no rashes or lesions noted and no wounds GENERAL SKIN EXAM: no rashes or lesions noted Course Vital Signs: Vital signs: Vital Signs Temperature 97.9 F 10/27/24 11:23 Pulse Rate 90 10/27/24 11:23 Respiratory Rate 16 10/27/24 11:23 Blood Pressure 106/70 10/27/24 11:23 Pulse Oximetry 95 10/27/24 11:23 Oxygen Delivery Me thod Room Air 10/27/24 11:23 MDM - Head Injury Medcial Decision Making Patient presents here with closed head injury imaging here is negative he is well-appearing here did give him Reglan Benadryl Toradol he has Zofran at home he stable for discharge follow-up with PCP return if worsening. No signs of cervical spine injury Medical Records I reviewed the patient's medical records. Lab Data Radiology Impressions Head CT 10/27/24 10:58 IMPRESSION: 1. No evidence of intracranial hemorrhage or mass effect. 2. No acute intracranial findings. All radiology interpretation(s) finalized by discharge Discharge Plan Discharge Patient Disposition: Home Clinical Impression: Closed head injury Condition: Stable Prescriptions: No Action ondansetron 8 mg tablet,disintegrating 8 mg PO Q8H PRN (Reason: nausea and vomiting) 5 Days Qty: 15 0RF tamsulosin [Flomax] 0.4 mg capsule 0.4 mg PO DAILY Qty: 30 1RF ketorolac 10 mg tablet 10 mg PO Q8H Qty: 14 0RF Rx Instructions: maximum total duration of 5 days from all oral, intranasal, or parenteral formulations ketorolac 10 mg tablet 10 mg PO Q8H PRN (Reason: pain) 10 Days Qty: 30 0RF ondansetron 8 mg tablet,disintegrating 8 mg PO Q8H PRN (Reason: nausea and vomiting) 5 Days Qty: 20 0RF amoxicillin-pot clavulanate 875-125 mg tablet 1 tab PO BID 5 Days Qty: 10 0RF pantoprazole 40 mg tablet,delayed release (DR/EC) See Rx Instructions .ROUTE .COMPLEX Qty: 60 0RF Dose Instruction: Take 1 tablet by mouth twice daily Rx Instructions: Take 1 tablet by mouth twice daily hydrocodone-acetaminophen 5-325 mg tablet 1 tab PO Q6H PRN (Reason: pain) Qty: 20 0RF promethazine 25 mg tablet 20 mg PO Q6H PRN (Reason: nausea and vomiting) Qty: 20 0RF hydrocodone-acetaminophen 5-325 mg tablet 1 tab PO Q4H PRN (Reason: pain) Qty: 10 0RF Discharge Orders: Discharge ED (Routine); Ordered 10/27/24 Ordered By: Cecily Reyes Referrals: Krista Rushing FNP [Primary Care Provider] - 4-7 days Discharge Diet: Advance as tolerated Discharge Activity: Resume usual activity Patient Instructions: Head Injury (ED) Coding Level of Care Code ED Commercial Marketing Specialist for Adal Suarez
[2024-10-27] MEDS: metoclopramide 5 mg/mL SDV 2 mL 10 MG IM (13:02)
[2024-10-27] MEDS: ketorolac 30 mg/mL INJ IM (13:02)
[2024-10-27] MEDS: diphenhydrAMINE 50 mg/mL SDV 1mL IM (13:02)
[2024-10-27 13:26] VITALS: BP 131/88; PULSE 93; RESP 16; O2SAT 97
== END 2024-10-27 13:28 | disposition home or self-care (01) ==
PROVIDERS: Emergency Provider Emergency Medicine; PCP Nurse Practitioner Family
DX: S09.8XXA Other specified injuries of head, initial encounter (principal); X58.XXXA Exposure to other specified factors, initial encounter
CPT/HCPCS: 70450; 96372; 99284; J1200; J1885; J2765

== ENCOUNTER 2025-01-12 21:05 | Emergency (ER) | payer BC, MEDICAID, SELFPAY ==
[2025-01-12 21:13] VITALS: BP 112/69; PULSE 63; RESP 18; TEMP 36.4; O2SAT 99; BMI 42.0
[2025-01-12 21:39] LABS: Basophils # 0.1 10^3/uL (0.0-0.1); Basophils % 0.5 %; Eosinophils # 0.5 10^3/uL (0.0-0.8); Eosinophils % 4.6 %; Hematocrit 47.4 % (37-53); Lymphocytes # 3.9 10^3/uL (0.8-4.8); Lymphocytes % 36.5 %; Mean Corpuscular HGB Conc 32.1 g/dL (30-55); Mean Corpuscular Volume 87.3 fl (82-101); Mean Platelet Volume 12.5 fL (7.4-10.4); Monocytes # 0.7 10^3/uL (0.2-0.9); Monocytes % 6.8 %; Neutrophils # 5.55 10^3/uL (1.8-7.7); Neutrophils % 51.3 %; Nucleated Red Blood Cells % 0 %; Platelet Count 189 10^3/cmm (157-399); Red Blood Count 5.43 10^6/uL (3.85-5.65)
[2025-01-12 22:00] LABS: Blood Urea Nitrogen 15 mg/dL (6-20); Calcium 9.9 mg/dL (8.5-10.5); Carbon Dioxide 27 mmol/L (22-29); Chloride 100 mmol/L (98-107); Creatinine Clr Calc Pharmacy 163.4101; Glucose 146 mg/dL (65-115); Lipase 119 U/L (13-60); Osmolality Calculated 291 mOsm/kg (285-295); Sodium 139 mmol/L (136-145)
[2025-01-12 22:01] LABS: Anion Gap 15.5 (5-19); Potassium 3.5 mmol/L (3.5-5.1)
== END 2025-01-12 23:27 | disposition left against medical advice (07) ==
PROVIDERS: Emergency Medicine; Emergency Provider Family Medicine; PCP Nurse Practitioner Family
DX: Z53.21 Procedure and treatment not carried out due to patient leaving prior to being seen by health care provider (principal)
CPT/HCPCS: 80048; 83690; 85025

== ENCOUNTER 2025-05-05 18:01 | Emergency (ER) | payer BC, MEDICAID, SELFPAY ==
[2025-05-05 18:02] VITALS: BP 111/48; PULSE 54; RESP 18; TEMP 36.8; O2SAT 99; BMI 42.0
--- NOTE | 2025-05-05 18:11 | W.ED.BACK ---
HPI - Back Pain/Injury General: Chief Complaint: Back Pain/Injury Stated Complaint: low back pain Time Seen by Provider: 05/05/25 18:05 History of Present Illness: 40-year-old man with history of obesity and hyperlipidemia presents emergency room with low back pain. Says has had kidney stones before and this is not like that. No nausea or vomiting and its bilateral. Worse with movement. No fevers. He says he was working under a car for the last several days. He is also concerned he might be dehydrated from working out in the heat. No saddle numbness, no urinary retention or incontinence, no focal motor deficit, no sensory deficit. no recent fever. no cough. no shortness of breath. no chest pain. no abdominal pain. no nausea or vomiting. no dysuria. no altered mental status. no edema. Related Data Previous Rx's ?Medication ?Instructions ?Recorded ondansetron 8 mg disintegrating 8 mg PO Q8H PRN nausea and 08/08/24 tablet vomiting 5 days #15 tabs ketorolac 10 mg tablet 10 mg PO Q8H #14 tabs 08/15/24 tamsulosin 0.4 mg capsule (Flomax) 0.4 mg PO DAILY #30 caps 08/15/24 hydrocodone 5 mg-acetaminophen 325 1 tab PO Q6H PRN pain #20 tabs 08/28/24 mg tablet promethazine 25 mg tablet 20 mg (0.8 x 25 mg) PO Q6H PRN 08/28/24 nausea and vomiting #20 tabs hydrocodone 5 mg-acetaminophen 325 1 tab PO Q4H PRN pain #10 tabs 09/10/24 mg tablet amoxicillin 875 mg-potassium 1 tab PO BID 5 days #10 tabs 09/13/24 clavulanate 125 mg tablet ketorolac 10 mg tablet 10 mg PO Q8H PRN pain 10 days #30 09/13/24 tabs ondansetron 8 mg disintegrating 8 mg PO Q8H PRN nausea and 09/13/24 tablet vomiting 5 days #20 tabs pantoprazole 40 mg tablet,delayed See Rx Instructions .Route 01/12/25 release .COMPLEX #60 tabs cyclobenzaprine 10 mg tablet 10 mg PO Q8H PRN muscle spasm #20 05/05/25 tabs dexamethasone 6 mg tablet 6 mg PO DAILY 5 days #5 tabs 05/05/25 diclofenac sodium 50 mg 50 mg PO Q12H #20 tabs 05/05/25 tablet,delayed release tramadol 50 mg tablet 50 mg PO Q8H PRN pain #20 tabs 05/05/25 Allergies Allergy/AdvReac Type Severity Reaction Status Date / Time topiramate (From Topamax) Allergy Unknown Verified 09/13/24 10:06 Review of Systems Narrative: Constitutional symptoms: Negative except as documented in HPI. Skin symptoms: Negative except as documented in HPI. Eye symptoms: Negative except as documented in HPI. ENMT symptoms: Negative except as documented in HPI. Respiratory symptoms: Negative except as documented in HPI. Cardiovascular symptoms: Negative except as documented in HPI. Gastrointestinal symptoms: Negative except as documented in HPI. Genitourinary symptoms: Negative except as documented in HPI. Musculoskeletal symptoms: Negative except as documented in HPI. Neurologic symptoms: Negative except as documented in HPI. Psychiatric symptoms: Negative except as documented in HPI. Endocrine symptoms: Negative except as documented in HPI. PFSH ED PFSH: Medical History Weight gain, abnormal Morbid obesity History of MRSA infection leg and face Hypercholesteremia Depression determined by examination Abscess of lip COVID-19 07/11/2021 positive test Cellulitis Abscess of skin of right wrist Left ankle pain Surgical History History of hand surgery Reconstruction, left hand History of foot surgery History of carpal tunnel surgery Left wrist Family History Other Cancer Diabetes Social History Smoking and tobacco/nicotine status: never used tobacco/nicotine Second hand smoke exposure: Yes Alcohol intake: never Substance/Drug Use: never Lives independently: Yes Household members: spouse Marital status: Number of children: 2 Current occupational status: employed and unemployed Current gender identity: Male Physical Exam Narrative: EXAM NARRATIVE: General: Alert, no acute distress. Head: Normocephalic Neck: Trachea midline Eye: Extraocular movements are intact. Ears, nose, mouth and throat: Oral mucosa moist Respiratory: Respirations are non-labored Musculoskeletal: Normal ROM Back: no step off, no focal tenderness, some paraspinal muscle tenderness Neurological: Alert and oriented, No focal neurological deficit observed. Psychiatric: Cooperative, appropriate mood & affect. Course Vital Signs: Vital signs: Vital Signs Temperature 98.2 F 05/05/25 18:02 Pulse Rate 54 L 05/05/25 18:02 Respiratory Rate 18 05/05/25 18:02 Blood Pressure 111/48 05/05/25 18:02 Pulse Oximetry 99 05/05/25 18:02 Oxygen Delivery Me thod Room Air 05/05/25 18:02 MDM - Back Pain/Injury Medical Decision Making Differential diagnosis: Most likely not kidney stones as bilateral. Worse with movement. Most likely musculoskeletal. No neurologic symptoms so imaging not indicated. Assessment and plan: Lumbosacral strain Dehydration ? 0.5 mg IV Dilaudid, IV Toradol, IV Norflex, IV fluids. - Discharged home - Discussed plan with patient. Answered any questions. - Evaluation and treatment of this problem were appropriate in the emergency setting. No radiology studies performed this visit Discharge Plan Discharge Patient Disposition: Home Clinical Impression: Low back pain, Lumbosacral strain Condition: Stable Prescriptions: New cyclobenzaprine 10 mg tablet 10 mg PO Q8H PRN (Reason: muscle spasm) Qty: 20 0RF dexamethasone 6 mg tablet 6 mg PO DAILY 5 Days Qty: 5 0RF tramadol 50 mg tablet 50 mg PO Q8H PRN (Reason: pain) Qty: 20 0RF diclofenac sodium 50 mg tablet,delayed release (DR/EC) 50 mg PO Q12H Qty: 20 0RF No Action ondansetron 8 mg tablet,disintegrating 8 mg PO Q8H PRN (Reason: nausea and vomiting) 5 Days Qty: 15 0RF tamsulosin [Flomax] 0.4 mg capsule 0.4 mg PO DAILY Qty: 30 1RF ketorolac 10 mg tablet 10 mg PO Q8H Qty: 14 0RF Rx Instructions: maximum total duration of 5 days from all oral, intranasal, or parenteral formulations ketorolac 10 mg tablet 10 mg PO Q8H PRN (Reason: pain) 10 Days Qty: 30 0RF ondansetron 8 mg tablet,disintegrating 8 mg PO Q8H PRN (Reason: nausea and vomiting) 5 Days Qty: 20 0RF amoxicillin-pot clavulanate 875-125 mg tablet 1 tab PO BID 5 Days Qty: 10 0RF pantoprazole 40 mg tablet,delayed release (DR/EC) See Rx Instructions .ROUTE .COMPLEX Qty: 60 0RF Dose Instruction: Take 1 tablet by mouth twice daily Rx Instructions: Take 1 tablet by mouth twice daily hydrocodone-acetaminophen 5-325 mg tablet 1 tab PO Q6H PRN (Reason: pain) Qty: 20 0RF promethazine 25 mg tablet 20 mg PO Q6H PRN (Reason: nausea and vomiting) Qty: 20 0RF hydrocodone-acetaminophen 5-325 mg tablet 1 tab PO Q4H PRN (Reason: pain) Qty: 10 0RF Discharge Orders: Discharge ED (Routine); Ordered 05/05/25 Ordered By: Jaye Bauer Referrals: Krista Rushing FNP [Primary Care Provider, Unknown] Discharge Diet: Usual diet Discharge Activity: Increase activity as tolerated Patient Instructions: Opioid Safety, Pain Management Activity Restrictions/Additional Instructions: Thank you for choosing [facility] for your healthcare needs today. You have been screened and evaluated and felt safe for discharge. Health conditions do change or evolve sometimes and as such it is important that you follow up with your Primary Doctor to be re checked, 3-5 days is a general good time frame for follow up. You are always welcome to return to the ED for re assessment if your symptoms are worsening or you have new concerns Print Language: Mongolian Coding Level of Care Code ED Slot Ambassador for Adal Suarez
[2025-05-05] MEDS: orphenadrine 30 mg/mL Inj 2 mL 60 MG IVP (18:24)
[2025-05-05] MEDS: sodium chloride 0.9% 1,000 ML 999 ML IV (18:24)
[2025-05-05] MEDS: ketorolac 30 mg/mL INJ IVP (18:24)
[2025-05-05] MEDS: HYDROmorphone 0.5 MG/0.5 ML INJ IVP (18:26)
[2025-05-05 19:15] VITALS: BP 120/70; PULSE 58; RESP 16; O2SAT 95
== END 2025-05-05 19:14 | disposition home or self-care (01) ==
PROVIDERS: Emergency Provider Emergency Medicine; PCP Nurse Practitioner Family
DX: S39.012A Strain of muscle, fascia and tendon of lower back, initial encounter (principal); X58.XXXA Exposure to other specified factors, initial encounter
CPT/HCPCS: 36415; 96374; 96375; 99284; J1171; J1885; J2360; J7030

== ENCOUNTER 2025-05-29 20:32 | Emergency (ER) | payer BC, MEDICAID, SELFPAY ==
--- OUTSIDE RECORDS SUMMARY | 2013-07-05 08:11 | XMS_ITS | Continuity of Care Document ---
Author Organization [facility] Address [address] [place] [address] Phone Care Team Providers Care Seed Technician Name Role Phone Baljeet Elias MD Unavailable Unavailable Advance Directives Directive Yes / No Effective Date File Name No Information Encounters Encounter Description Practice Location Reason(s) For Visit Diagnoses Date Provider Providers Copied on Encounter [facility], [address], [place], [place], [id number], [place] tel:[phone] [facility] No Information 3 Curt Delong. [address] [facility], [address], [place], [place], [id number] , [place]. tel: [phone] Family History Family Member Type Diagnosis Age [...]
--- OUTSIDE RECORDS SUMMARY | 2024-10-02 08:30 | XMS_ITS ---
Author Organization [facility] Address [address] [place] [address] Care Team Providers Care Shuttlecock Feather Trimmer Name Role Phone Krista Rushing APRN Primary Care Provider NICOLETTE Sevilla Unavailable [phone] REASON FOR VISIT Kidney Stone Encounters Encounter Location Date Provider Diagnosis [facility] [address] [place] [facility] [place] [address] 10/02/2024 NICOLETTE CASTILLO Plan Of Treatment No Information Progress Notes * Maegan ARRINGTONOB:1985 (40 yo M)Acc No.[id number]:10/02/2024 Progress Notes Patient: Alvaro SOLOMON Provider: KING Justice :1985 A ge:39 Y S ex:Male Date:10/02/2024 Address:[address] [place], [place] [id number] Pcp:Krista Rushing APRN Subjective: * Chief Complaints: * 1 . Kidney Stone. * Medical History: Objective: * Vitals: Assessment: Plan: * Treatment: * Billing Information: * Visit Code: * Procedure Codes: * Electronic signature of NICOLETTE CASTILLO APRN on 05/29/2025 at 08:37 PM CDT Sign off status: Pending * Provider: KING Justice Date: 12/02/2023 Generated for Ryan sevilla/Ignacio/Annabelleitting on: 0 05/29/2025 08:37 PM CDT
[2025-05-29 20:32] VITALS: BP 114/86; PULSE 80; RESP 18; TEMP 36.5; O2SAT 94; BMI 43.4
--- NOTE | 2025-05-29 20:36 | XRR_ITS ---
PROCEDURE INFORMATION: Exam: XR Left Hip Exam date and time: 05/29/2025 8:53 PM Age: 40 years old Clinical indication: Hip pain; Left hip TECHNIQUE: Imaging protocol: Radiologic exam of the left hip. Views: 2 or 3 views hip with pelvis when performed. COMPARISON: CT kidney stone [id number] 08/28/2024 11:03 AM FINDINGS: Bones/joints: Unremarkable. No acute fracture. No dislocation. Soft tissues: Unremarkable. XR/XR hip LT 2-3V wo/w pel* [id number] IMPRESSION: No acute findings.
--- OUTSIDE RECORDS SUMMARY | 2025-05-29 20:37 | XMS_ITS | Patient Health Record ---
Author Organization [facility] Address [address] [place] [address] Care Team Providers Care Senior Integration Developer Name Role Phone Krista Rushing APRN Primary Care Provider UnavailNICOLETTE Bojorquez [phone] Reason For Referral No Information Encounters Encounter Location Date Provider Diagnosis [facility] [address] [place] [address] 09/13/2024 NICOLETTE CASTILLO Plan Of Treatment No Information Insurance Providers Payer Name Payer Address Payer Phone Subscriber Number Group Number Insured Name Patient Relationship to Insured Coverage Start Date Coverage End Date [facility] Plan [address] [place], [place] [id number] Alvaro Arrington Self - patient is the insured
--- OUTSIDE RECORDS SUMMARY | 2025-05-29 20:37 | XMS_ITS | Encounter Summary ---
Author Organization [facility] Address 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
--- OUTSIDE RECORDS SUMMARY | 2025-05-29 20:37 | XMS_ITS | Clinical Summary ---
Author Organization [facility] Address [address] [place] [address] Care Team Providers Care Log Sorting Supervisor Name Role Phone Unavailable Primary Care Provider Unavailabl e Allergies Active Allergy Reactions Criticality Noted Date Comments Topiramate Syncope Medium 09/06/2014 Medications oseltamivir (TAMIFLU) 75 mg capsule Take 1 Capsule (75 mg) by mouth 2 times daily. 10 Capsule 0 11/12/2017 Active ibuprofen (MOTRIN) 200 mg tablet Take 800 mg by mouth every 6 hours as needed for Pain, Mild. 11/12/2017 Active Active Problems Problem Noted Date Diagnosed Date RSD (reflex sympathetic dystrophy) 09/06/2014 Fibromyalgia 09/06/2014 CPAP (continuous positive airway pressure) depen dence 09/06/2014 Chronic pain 09/06/2014 Encounters Date Type Department Care Team Description 05/22/2025 External Device Data [facility]CTION Provider, Abstract 04/11/2025 External Device Data [facility] Provider, Abstract 04/10/2025 External Device Data [facility] Provider, Abstract 03/27/2025 External Device Data [facility] Provider, Abstract 03/13/2025 External Device Data [facility] Provider, Abstract 03/13/2025 External Device Data [facility] Provider, Abstract 03/13/2025 External Device Data [facility] Provider, Abstract 03/06/2025 Telephone [facility]- [address]tr[address] [place] [address] Provider, Abstract urology referral appointment from Last 3 Months Immunizations Immunization Administration Dates Next Due (M-M-R II/PRIORIX)(12 MO UP) MEASLES, MUMPS AND RUBELLA VIRUS VACCINE, 0.5 ML IM/SUBCUT 04/08/1992 (TDVAX)(7 YRS UP) TETANUS AN D DIPHTHERIA TOXOIDS, ADSORBED (2 LF OF TETANUS TOXOID AND 2 LF OF DIPHTHERIA TOXOID), 0.5ML (PF), IM 07/10/2002 Dt Dtp Dtap Vaccine 04/08/1992 Hepatitis A Vaccine 02/11/2007,06/24/2006 Hepatitis B Vaccine 08/20/2000,01/05/2000,1999 IPV/OPV 04/08/1992 Social History Tobacco Use Types Packs/Day Years Used Date Smoking Tobacco: Never Smokeless Tobacco: Never Alcohol Use Standard Drinks/Week Comments No 0 (1 standard drink = 0.6 oz pur e alcohol) Sex and Gender Information Value Date Recorded Sex Assigned at Not on file 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 Gender Identity Not on file Sexual Orientation Not on file Last Filed Vital Signs Vital Sign Reading Time Taken Comments Blood Pressure 139/68 03/08/2020 6:38 PM CDT Pulse - - Temperature 37.1 C (98.7 F) 03/08/2020 6:38 PM CDT Respiratory Rate 20 03/08/2020 6:38 PM CDT Oxygen Saturation - - Inhaled Oxygen Concentration - - Weight 117.5 kg (259 lb) 03/08/2020 6:38 PM CDT Height 182.9 cm (6') 03/08/2020 6:38 PM CDT Body Mass Index 35.13 03/08/2020 6:38 PM CDT Plan of Treatment Upcoming Encounters Date Type Department Care Team (Late st Contact Info) Description 06/06/2025 3:00 PM CDT Office Visit [facility] [address] [place] [phone] Keira Seo [address] [place] [phone] Health Maintenance Due Date Last Done Comments DTAP/TDAP/TD VACCINES (6 - Tdap) 07/11/2002 07/10/2002, 04/08/1992, 04/08/1992, Additional history exists INFLUENZA VACCINE (#1) 2025 HEPATITIS B VACCINES Completed 08/20/2000, 08/20/2000, 01/05/2000, Additional history exists HPV VACCINES Aged Out No longer eligi ble based on patient's age to complete this topic Insurance [place] [id number] HEALTH PLAN MEDICAID
--- NOTE | 2025-05-29 20:43 | W.ED.BACK ---
HPI - Back Pain/Injury General: Chief Complaint: Back Pain/Injury Stated Complaint: BACK PAIN Time Seen by Provider: 05/29/25 20:33 Source: patient and EMS Mode of arrival: EMS Limitations: no limitations History of Present Illness: 40-year-old male who has a history of chronic low back pain states has been working 3 days ago on started having worsening low back pain. States the pain is mainly in his left lower back rating down his hip. States it hurts to ambulate rates his pain a 7 out of 10 currently denies any bowel or bladder incontinence. Associated symptoms: Deny abdominal pain, chills, dysuria, fever(s), nausea or vomiting Related Data Previous Rx's ?Medication ?Instructions ?Recorded ondansetron 8 mg disintegrating 8 mg PO Q8H PRN nausea and 08/08/24 tablet vomiting 5 days #15 tabs ketorolac 10 mg tablet 10 mg PO Q8H #14 tabs 08/15/24 tamsulosin 0.4 mg capsule (Flomax) 0.4 mg PO DAILY #30 caps 08/15/24 promethazine 25 mg tablet 20 mg (0.8 x 25 mg) PO Q6H PRN 08/28/24 nausea and vomiting #20 tabs amoxicillin 875 mg-potassium 1 tab PO BID 5 days #10 tabs 09/13/24 clavulanate 125 mg tablet ketorolac 10 mg tablet 10 mg PO Q8H PRN pain 10 days #30 09/13/24 tabs ondansetron 8 mg disintegrating 8 mg PO Q8H PRN nausea and 09/13/24 tablet vomiting 5 days #20 tabs cyclobenzaprine 10 mg tablet 10 mg PO Q8H PRN muscle spasm #20 05/05/25 tabs diclofenac sodium 50 mg 50 mg PO Q12H #20 tabs 05/05/25 tablet,delayed release tramadol 50 mg tablet 50 mg PO Q8H PRN pain #20 tabs 05/05/25 pantoprazole 40 mg tablet,delayed See Rx Instructions .Route 05/09/25 release .COMPLEX #60 tabs hydrocodone 5 mg-acetaminophen 325 1 tab PO Q6H PRN pain #14 tabs 05/29/25 mg tablet methocarbamol 750 mg tablet 750 mg PO Q6H PRN spasms #20 tabs 05/29/25 naproxen 500 mg tablet (Naprosyn) 500 mg PO BID PRN pain #20 tabs 05/29/25 prednisone 50 mg tablet 50 mg PO DAILY #5 tabs 05/29/25 Allergies Allergy/AdvReac Type Severity Reaction Status Date / Time topiramate (From Topamax) Allergy Unknown Verified 09/13/24 10:06 Review of Systems Const: Denies: fever(s), chills, body aches or change in appetite ENMT: Denies: throat pain or dental pain Card: Denies: chest pain Resp: Denies: dyspnea GI: Denies: abdominal pain, nausea, vomiting or diarrhea : Denies: dysuria Musc: Reports: back pain; Denies: neck pain Skin/Breast: Denies: rash Neuro: Denies: headache(s) PFSH ED PFSH: Medical History Weight gain, abnormal Morbid obesity History of MRSA infection leg and face Hypercholesteremia Depression determined by examination Abscess of lip COVID-19 07/11/2021 positive test Cellulitis Abscess of skin of right wrist Left ankle pain Surgical History History of hand surgery Reconstruction, left hand History of foot surgery History of carpal tunnel surgery Left wrist Family History Other Cancer Diabetes Social History Smoking and tobacco/nicotine status: never used tobacco/nicotine Second hand smoke exposure: Yes Alcohol intake: never Substance/Drug Use: never Lives independently: Yes Household members: spouse Marital status: Number of children: 2 Current occupational status: employed and unemployed Current gender identity: Male Physical Exam Const: COMMON NORMALS: no acute distress, patient oriented x3 and healthy appearing HENMT: COMMON NORMALS: normocephalic and atraumatic HEAD & SCALP: normocephalic and atraumatic Eye: COMMON NORMALS: conjunctivae normal CONJUNCTIVA: Yes conjunctivae normal Neck/C-Spine: COMMON NORMALS: full ROM and supple Chest: COMMONS NORMALS: normal inspection of the chest Resp: COMMON NORMALS: normal respiratory effort Cardio: COMMON NORMALS: regular rate RATE: regular rate GI: COMMON NORMALS: Normal to inspection, nondistended, normoactive bowel sounds present, Soft to palpation, non-tender and no masses PALPATION: Yes Soft to palpation Back/Pelvis: OTHER: Tenderness noted to left lower back no midline tenderness no saddle anesthesia Extremity: COMMON NORMALS: normal to inspection and full ROM Neuro: COMMON NORMALS: patient oriented x3, moves all extremities and no focal motor deficits Psych: COMMON NORMALS: mental status grossly normal, Normal thought process present and cooperative THOUGHT PROCESS: Normal thought process present Skin: COMMON NORMALS: no rashes or lesions noted and no wounds GENERAL SKIN EXAM: no rashes or lesions noted Course Vital Signs: Vital signs: Vital Signs Temperature 97.7 F 05/29/25 20:32 Pulse Rate 81 05/29/25 21:30 Respiratory Rate 18 05/29/25 20:32 Blood Pressure 116/79 05/29/25 21:30 Pulse Oximetry 95 05/29/25 21:30 Oxygen Delivery Me thod Room Air 05/29/25 21:15 MDM - Back Pain/Injury Medical Decision Making Patient presents here with low back pain with sciatica no sign of cord compression or epidural abscess we will start him on pain meds along with muscle relaxants. Medical Records I reviewed the patient's medical records. Labs Radiology Impressions Hip/Pelvis X-Ray 05/29/25 20:36 IMPRESSION: No acute findings. All radiology interpretation(s) finalized by discharge Discharge Plan Discharge Patient Disposition: Home Clinical Impression: Low back pain Condition: Stable Prescriptions: New hydrocodone-acetaminophen 5-325 mg tablet 1 tab PO Q6H PRN (Reason: pain) Qty: 14 0RF methocarbamol 750 mg tablet 750 mg PO Q6H PRN (Reason: spasms) Qty: 20 0RF naproxen [Naprosyn] 500 mg tablet 500 mg PO BID PRN (Reason: pain) Qty: 20 0RF prednisone 50 mg tablet 50 mg PO DAILY Qty: 5 0RF Discontinued hydrocodone-acetaminophen 5-325 mg tablet 1 tab PO Q6H PRN (Reason: pain) Qty: 20 0RF hydrocodone-acetaminophen 5-325 mg tablet 1 tab PO Q4H PRN (Reason: pain) Qty: 10 0RF No Action ondansetron 8 mg tablet,disintegrating 8 mg PO Q8H PRN (Reason: nausea and vomiting) 5 Days Qty: 15 0RF tamsulosin [Flomax] 0.4 mg capsule 0.4 mg PO DAILY Qty: 30 1RF ketorolac 10 mg tablet 10 mg PO Q8H Qty: 14 0RF Rx Instructions: maximum total duration of 5 days from all oral, intranasal, or parenteral formulations ketorolac 10 mg tablet 10 mg PO Q8H PRN (Reason: pain) 10 Days Qty: 30 0RF ondansetron 8 mg tablet,disintegrating 8 mg PO Q8H PRN (Reason: nausea and vomiting) 5 Days Qty: 20 0RF amoxicillin-pot clavulanate 875-125 mg tablet 1 tab PO BID 5 Days Qty: 10 0RF pantoprazole 40 mg tablet,delayed release (DR/EC) See Rx Instructions .ROUTE .COMPLEX Qty: 60 0RF Dose Instruction: Take 1 tablet by mouth twice daily Rx Instructions: Take 1 tablet by mouth twice daily promethazine 25 mg tablet 20 mg PO Q6H PRN (Reason: nausea and vomiting) Qty: 20 0RF cyclobenzaprine 10 mg tablet 10 mg PO Q8H PRN (Reason: muscle spasm) Qty: 20 0RF tramadol 50 mg tablet 50 mg PO Q8H PRN (Reason: pain) Qty: 20 0RF diclofenac sodium 50 mg tablet,delayed release (DR/EC) 50 mg PO Q12H Qty: 20 0RF Discharge Orders: Discharge ED (Routine); Ordered 05/29/25 Ordered By: Cecily Reyes Referrals: Krista Rushing FNP [Primary Care Provider, Unknown] - 4-7 days Discharge Diet: Advance as tolerated Discharge Activity: Resume usual activity Patient Instructions: Sciatica (ED), Pain Management Print Language: Moldovan Coding Level of Care Code ED Forming Acid Dumper for Adal Suarez
[2025-05-29] MEDS: HYDROmorphone 0.5 MG/0.5 ML INJ IVP (20:58)
[2025-05-29 21:15] VITALS: BP 114/76; PULSE 69; O2SAT 94
[2025-05-29] MEDS: HYDROcodone-acetaminophen 5-325 mg Tablet 2 TAB PO (21:25)
[2025-05-29 21:30] VITALS: BP 116/79; PULSE 81; O2SAT 95
== END 2025-05-29 21:31 | disposition home or self-care (01) ==
PROVIDERS: Emergency Provider Emergency Medicine; PCP Nurse Practitioner Family
DX: M54.50 Low back pain, unspecified (principal)
CPT/HCPCS: 73502; 96374; 96375; 99284; J1100; J1171; J9999

== ENCOUNTER 2025-05-30 18:30 | Emergency (ER) | payer BC, MEDICAID, SELFPAY ==
--- OUTSIDE RECORDS SUMMARY | 2013-07-05 08:11 | XMS_ITS | Continuity of Care Document ---
Author Organization [facility] Address [address] [place] [address] Phone Care Team Providers Care Internal Medicine Nurse Name Role Phone Baljeet Elias MD Unavailable Unavailable Advance Directives Directive Yes / No Effective Date File Name No Information Encounters Encounter Description Practice Location Reason(s) For Visit Diagnoses Date Provider Providers Copied on Encounter [facility], [address], [place], [place], [id number], [place] tel:[phone] [facility] No Information 3 Curt Delong. [address], [address], [place], [place], [id number] , [place]. tel: [phone] Family History Family Member Type Diagnosis Age At Onset No Information Payers Payer name Insurance type Covered libertarian ID Authoriza tion(s) No Information Social History [...]
--- OUTSIDE RECORDS SUMMARY | 2024-10-02 08:30 | XMS_ITS ---
Author Organization [facility] Address [address] [place] [address] Care Team Providers Care Keypunch Operators Supervisor Name Role Phone Krista Rushing APRN Primary Care Provider NICOLETTE Sevilla Unavailable [phone] REASON FOR VISIT Kidney Stone Encounters Encounter Location Date Provider Diagnosis [facility] [address] [place] [place] [address] 10/02/2024 NICOLETTE CASTILLO Plan Of Treatment No Information Progress Notes * Maegan ARRINGTONOB:1985 (40 yo M)Acc No.[id number]:10/02/2024 Progress Notes Patient: Alvaro SOLOMON Provider: KING Justice :1985 A ge:39 Y S ex:Male Date:10/02/2024 Address:[address] [place], [place] [id number] Pcp:Krista Rushing APRN Subjective: * Chief Complaints: * 1 . Kidney Stone. * Medical History: Objective: * Vitals: Assessment: Plan: * Treatment: * Billing Information: * Visit Code: * Procedure Codes: * Electronic signature of NICOLETTE CASTILLO APRN on 05/30/2025 at 06:42 PM CDT Sign off status: Pending * Provider: KING Justice Date: 12/02/2023 Generated for Ryan sevilla/Ignacio/Annabelleitting on: 0 05/30/2025 06:42 PM CDT
[2025-05-30 18:42] VITALS: BP 138/76; PULSE 60; RESP 18; TEMP 36.8; O2SAT 99
--- OUTSIDE RECORDS SUMMARY | 2025-05-30 18:42 | XMS_ITS | Patient Health Record ---
Author Organization [facility] Address [address] [place] [address] Care Team Providers Care Hog Ringer Name Role Phone Krista Rushing APRN Primary Care Provider UnavailNICOLETTE Bojorquez [phone] Reason For Referral No Information Encounters Encounter Location Date Provider Diagnosis [facility] [address] [place] [address] 09/13/2024 NICOLETTE CASTILLO Plan Of Treatment No Information Insurance Providers Payer Name Payer Address Payer Phone Subscriber Number Group Number Insured Name Patient Relationship to Insured Coverage Start Date Coverage End Date [facility] Health Plan [address] [place], [place] [id number] Alvaro Arrington Self - patient is the insured
--- OUTSIDE RECORDS SUMMARY | 2025-05-30 18:42 | XMS_ITS | Clinical Summary ---
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 Gender Identity Not on file Sexual Orientation [...] Description 06/06/2025 3:00 PM CDT Office Visit [facility] [address] [place] [phone] Keira Seo [address] [place] [phone] Health Maintenance Due Date Last Done Comments DTAP/TDAP/TD VACCINES (6 - Tdap) 07/11/2002 07/10/2002, 04/08/1992, 04/08/1992, Additional history exists INFLUENZA VACCINE (#1) 2025 HEPATITIS B VACCINES Completed 08/20/2000, 08/20/2000, 01/05/2000, Additional history exists HPV VACCINES Aged Out No longer eligi ble based on patient's age to complete this topic [place] [address] [place] [address] HEALTH PLAN MEDICAID
--- OUTSIDE RECORDS SUMMARY | 2025-05-30 18:42 | XMS_ITS | Encounter Summary ---
Author Organization [facility] Address 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 [address] [place] [phone] Keira Seo FNP [address] [place] [address] [place] [phone] documented as of this encounter Visit Diagnoses Not on filedocumented in this encounter
--- OUTSIDE RECORDS SUMMARY | 2025-05-30 18:42 | XMS_ITS | Data Portability ---
Author Organization ROYA Gallagher [facility] Shawanda Cameron, [facility] Address [address] [place] [address] Assessment Encounter Date Assessment Date Assessment LastModified by Organization Details LastModified Time 08/22/2024 08/22/2024 Patient says he is trying to get established. He was previously seeing Dr. Armas but was released from his care because of No Shows. He needs some referrals. Recent ER records reviewed. Will place referrals. He will follow-up in approximately 6 months, sooner if needed. Not available 08/24/2024 09:05:41 Plan of Treatment Reminders Order Date Submit Date Provider Last Modified By Organization Details Last Modified Time Details Appointments None recorded. Lab urinalysis , complete 2023 024 [facility], [address], [facility] [address], [place], [address], 4 15:37:13 culture, urine 2023 024 [employer] [facility], [address] [place], [address], 4 01:42:14 Referral general surgeon referral 2023 024 [email or web address] 2 Didier Gupta MD, [address] [facility], [facility] [address], [place], [address], 4 16:03:17 urologist referral 2023 024 [email or web address] 2 [facility], [address], [place], [address], 10:32:54 Procedures None recorded. Surgeries None recorded. Imaging None recorded. Medication Orders ketorolac 30 mg/mL (1 mL) injection solution 2023 024 [email or web address] Not available 15:32:42 Patient TargetsNo targets recorded. Patient Instructions Encounter Date Encounter Id Patient Instructions Last Modified By Organization Details Last Modified Time 08/22/2024 [id number] Call or return for questions or concerns. Not available 08/22/2024 15:02:16 Reason for Referral Urologist Referral for Histo ry of calculus of kidney Referring Physician: Krista Rico, [facility], Encounter Date: 08/22/2024 General Surgeon Referral for Cholelithiasis without obstruction Referring Physician: Krista Rico [facility], Encounter Date: 08/22/2024 Results Created Date Observation Date Name Description Value Unit Range Abnormal Flag Note LastModifiedBy Organization Detail LastModifiedTime 08/22/2008/22/2024 URINA LYSIS WITH MICRO color YELLOW Not Available [facility] [address] [facility] [address], [place], [address], 08/22/2024 15:37:13 08/22/2008/22/2024 URINA LYSIS WITH MICRO clarity CLEAR Not Available [facility] [address] [facility] [address], [place], [address], 08/22/2024 15:37:13 08/22/2008/22/2024 URINA LYSIS WITH MICRO glu NEGATI VE Not Available [facility] [address] [facility] [address], [place], [address], 08/22/2024 15:37:13 08/22/2008/22/2024 URINA LYSIS WITH MICRO bili NEGATI VE Not Available [facility] [address] [facility] [address], [place], [address], 08/22/2024 15:37:13 08/22/2008/22/2024 URINA LYSIS WITH MICRO ket NEGATI VE Not Available [facility] [address], [place], [address], 08/22/2024 15:37:13 08/22/20 24 08/22/2024 URINA LYSIS WITH MICRO S.g 1.025 1.005- 1.025 Not Available [facility] [address], [place], [address], 08/22/2024 15:37:13 08/22/2008/22/2024 URINA LYSIS WITH MICRO pH 6.5 5.0-7. 0 Not Available [facility] [address], [place], [address], 08/22/2024 15:37:13 08/22/2008/22/2024 URINA LYSIS WITH MICRO pro NEGATI VE Not Available [facility] [address], [place], [address], 08/22/2024 15:37:13 08/22/2008/22/2024 URINA LYSIS WITH MICRO uro 0.2 Not Available [facility] [address], [place], [address], 08/22/2024 15:37:13 08/22/2008/22/2024 URINA LYSIS WITH MICRO nit NEGATI VE Not Available [facility] [address], [place], [address], 08/22/2024 15:37:13 08/22/2008/22/2024 URINA LYSIS WITH MICRO blo TRACE abnormal Not Available [facility] [address], [place], [address], 08/22/2024 15:37:13 08/22/2008/22/2024 URINA LYSIS WITH MICRO nadja NEGATI VE Not Available [facility] [address] [facility] [address], [place], [address], 08/22/2024 15:37:13 08/22/20 24 08/22/2024 URINA LYSIS WITH MICRO WBC NEGATI VE Not Available [facility] [address] [facility] [address], [place], [address], 08/22/2024 15:37:13 08/22/2008/22/2024 URINA LYSIS WITH MICRO RBC 6-8 abnormal Not Available [facility] [address] [address], [place], [address], 08/22/2024 15:37:13 08/22/2008/22/2024 URINA LYSIS WITH MICRO epi cells NEGATI VE Not Available [facility] [address] [address], [place], [address], 08/22/2024 15:37:13 08/22/2008/22/2024 URINA LYSIS WITH MICRO bacteria 2+ MUCUS THREAD S abnormal Not Available [facility] [address] [address], [place], [address], 08/22/2024 15:37:13 08/22/2008/22/2024 URINA LYSIS WITH MICRO other NEGATI VE Not Available [facility] [address] [address], [place], [address], 08/22/2024 15:37:13 08/22/2008/24/2024 CULTU RE, URINE , ROUTI NE culture, urine, routine SEE NOTE CULTU RE, URINE , ROUTI NE Micro Numbe r: [id number] Test Statu s: Final Speci men Sourc e: Urine Speci men Quali ty: Adequ ate Resul t: No Growt h Not Available [employer] [facility] [address] , [place], [address], 08/24/2024 01:42:13 Result Notes None recorded. Problems Name Problem SNOMED Code Status Onset Date Resolution Date Notes Provider Name and Address Organization Details Recorded Time Fibromyalgia 664819477 Active 2023 BOUBACAR kruse [facility], MadaiL.CRomie 4 14:16:23 Carpal tunnel syndrome 18700828 Active 2023 OBUBACAR kruse [facility], LRomieLRomieCRomie 4 14:16:34 History of calculus of kidney 743046214 Active 2023 BOUBACAR kruse [facility], MadaiLRomieCRomie 4 14:16:48 Steatotic liver disease 643404523 Active 2023 BOUBACAR kruse [facility], MadaiLRomieCRomie 4 14:16:59 Chronic depression 501267239 Active 2024 BOUBACAR kruse [facility], L.L.CRomie 5 10:38:18 Problem Notes None recorded. Procedures Surgical History Date Name Laterality Status Provider Name and Address Organization Details Recorded Time 5 plain X-ray of bone of pelvis and bone of hip joint region completed BOUBACAR marquez [facility], LRomieLRomieCRomie 05/30/2025 10:40:[address] of head completed BOUBACAR August [facility], L.L.CRomie 11/01/2024 20:53:[address] of abdomen completed BOUBACAR marquez [facility], MadaiLRomieCRomie 08/26/2024 13:10:24 Carpal tunnel surgery [facility] Nathaniel marquez [facility], MadaiL.CRomie 08/22/2024 14:21:45 foot repair completed BOUBACAR MOHAMUD [facility], LRomieLRomieC. 08/22/2024 14:22:30 Imaging Results None recorded. Procedure Notes None recorded. Medical Equipment None Reported. Allergies Allergen ID Allergen Name Allergen Category Reaction Reaction Severity Criticality Documentation Date Start Date Code Code System Note Provider Name and Address Organization Details Recorded Time 50086 Topamax medicatio n Not available Not available Not available 08/22/2024 87017 3 RxNorm I freak ed out [facility] 4 14:16:01 Medications Name Sig Start Date Stop Date Status Note LastModified by Organization Details LastModified Time hydrocodone 5 mg-acetamin ophen 325 mg tablet 08/22 completed Not Available Not Available Not Available ciprofloxac in 500 mg tablet 08/22 completed Not Available Not Available Not Available ketorolac 30 mg/mL (1 mL) injection solution Inject 1 mL by intramusc ular route as directed. 2023 active Not Available Not Available Not Avai lable ondansetron 8 mg disintegrat ing tablet 08/22 completed Not Available Not Available Not Available ketorolac 10 mg tablet TAKE 1 TAB BY MOUTH EVERY 8HRS.MAX DURATION OF 5 DAYS FROM ALL ORAL, NASAL, OR PARENTERA L FORMULATI O active Not Available Not Available No t Available tamsulosin 0.4 mg capsule 08/22 completed Not Available Not Available Not Available amoxicillin 875 mg-potassiu m clavulanate 125 mg tablet TAKE 1 TABLET BY MOUTH TWICE DAILY FOR 7 DAYS 08/22 completed Not Available Not Available Not Available Vitals Date Recorded Body height Body mass index (BMI) Body weight Oxygen saturation Oxygen saturation in Arterial blood by Pulse oximetry Heart rate Respiratory rate Systolic And Diastolic Provider Name and Address Organization Details Last Updated DateTime 4 182.88 cm 42.6 kg/m2 194871 g 98 % 98 % 68 /min 18 /min 118/76 mm[Hg] BOUBACAR MOHAMUD [facility] 4 14:15:34 Social History Question Answer Notes LastModified by Organizat ion Details LastModified Time Tobacco Smoking Status Never Smoker BOUBACAR kruse [facility] 08/22/2024 14:20:28 What Is Your Level Of Caffeine Consumption? Occasional [email or web address] Information not available 08/22/2024 What Is Your Relationship Status? Information not available 08/22/2024 Sex: Unknown Functional Status Question Answer Note LastModified by Organizat ion Details LastModified Time Do you use any illicit or recreational drugs? Yes Marijuana gummies [email or web address] Information not available 08/22/2024 What is your level of alcohol consumption? None [email or web address] Information not available 08/22/2024 Are you currently employed? Yes [employer] [email or web address] Information not available 08/22/2024 Are you able to care for yourself? Yes [email or web address] Information not available 08/22/2024 Mental Status None recorded. Family History Relationship Description Onset Age of this Age Resolved Age Notes LastModified by Organization Details LastModified Time Mother Malignant tumor of cervix [email or web address] Not available 08/22 14:18:29 Father Type 2 diabetes mellitus [email or web address] Not available 08/22 14:18:55 Father Essential hypertension [email or web address] Not available 14:19:03 Father Chronic kidney disease [email or web address] Not available 08/22 14:19:10 Father Heart disease age 41 [email or web address] Not available 08/22/2024 14:19:26 Medical History Condition Response Anxiety Disorder Y Kidney Stones Y Headaches Y Fibromyalgia Y Depression Y Past Encounters Encounter ID Performer Location Encounter Start Date Encounter Closed Date Diagnosis/Indication Diagnosis SNOMED-CT Code Diagnosis ICD10 Code Diagnosis Note [id number] [facility] ([facility] [address] [place] [address] 08/22/2024 13:53:37 08/23/2024 10:27:04 History of calculus of kidney 277446576 Z87.442 Cholelithi asis without obstruction 61467875 K80.20 Health Concerns Section Related Observation LastModified by Organization Detai ls LastModified Time None Recorded Concern Status LastModified by Organization Details LastModified Time None Recorded Advance Directives Directive None Recorded Payers Insurance Date Sequence Insurance Name Policy Number Policy Lloyd Covered Member ID Lloyd Member ID Guarantor Name 05/16/2025 2 AETLAZARO Arrington [id number] Alvaro Arrington 03/06/2025 [facility] (MEDICAID HMO) Alvaro Arrington [id number] Alvaro Arrington 05/16/2025 2 [place] [id number] Alvaro Arrington [id number] Alvaro Woodhull 05/16/2025 1 [facility] (MEDICAID HMO) Alvaro Arrington [id number] Alvaro Arrington Notes Date Note Type Note Provider Name and Address Organization Details Recorded Time 08/22/2024 text/html LUTSReported bypatient.Location :bladder Quality:aching; burning; pressure Severity:worsening Timing:intermitten t Context:history of kidney stones KRISTA RICO, [facility] [address] [place], [address], [facility] 08/24/2024 09:06:38
[2025-05-30 18:44] VITALS: BP 116/69; PULSE 64; RESP 16; O2SAT 98
--- NOTE | 2025-05-30 19:19 | CTR_ITS ---
PROCEDURE INFORMATION: Exam: CT Abdomen And Pelvis Without Contrast Exam date and time: 05/30/2025 7:42 PM Age: 40 years old Clinical indication: Abdominal pain; Flank; Right; Additional info: Right flank/low back pain TECHNIQUE: Imaging protocol: Computed tomography of the abdomen and pelvis without contrast. Radiation optimization: All CT scans at this facility use at least one of these dose optimization techniques: automated exposure control; mA and/or kV adjustment per patient size (includes targeted exams where dose is matched to clinical indication); or iterative reconstruction. COMPARISON: CT kidney stone [id number] 08/28/2024 11:03 AM RADIATION DOSE METRICS: Total DLP (mGy-cm): 1135.73 FINDINGS: Lungs: Emphysematous changes suspected. Bibasilar atelectasis. Liver: Normal. No mass. Gallbladder and biliary ducts: Cholelithiasis with prominence of the gallbladder, consider further evaluation with an ultrasound to evaluate for cholecystitis. Pancreas: Normal. No ductal dilation. Spleen: Normal. No splenomegaly. Adrenal glands: Normal. No mass. Kidneys and ureters: Bilateral nonobstructing renal calyceal stones. Stomach and bowel: Unremarkable. No obstruction. No mucosal thickening. Appendix: No evidence of appendicitis. Intraperitoneal space: Unremarkable. No free air. No significant fluid collection. Vasculature: Unremarkable. No abdominal aortic aneurysm. Lymph nodes: Unremarkable. No enlarged lymph nodes. Urinary bladder: Unremarkable as visualized. Reproductive: Unremarkable as visualized. Bones/joints: Unremarkable. No acute fracture. Soft tissues: Unremarkable. CT/CT kidney stone [id number] IMPRESSION: 1. Cholelithiasis with prominence of the gallbladder, consider further evaluation with an ultrasound to evaluate for cholecystitis. 2. Bilateral nonobstructing renal calyceal stones. 3. Emphysematous changes suspected. 4. Bibasilar atelectasis.
[2025-05-30 19:31] LABS: Hematocrit 45.3 % (37-53); Hemoglobin 15.10 g/dL (11.27-16.99); Mean Corpuscular HGB Conc 33.3 g/dL (30-55); Mean Corpuscular Hemoglobin 28.3 pg (27-33); Mean Corpuscular Volume 85.0 fl (82-101); Nucleated Red Blood Cells % 0 %; Platelet Count 297 10^3/cmm (157-399); Red Blood Count 5.33 10^6/uL (3.85-5.65); White Blood Count 24.44 10^3/uL (3.29-11.43)
[2025-05-30] MEDS: diphenhydrAMINE 50 mg/mL SDV 1mL 25 MG IVP (19:33)
[2025-05-30 19:44] VITALS: PULSE 67; O2SAT 100
[2025-05-30 19:50] LABS: Glucose Urine UA Negative (Normal); Nitrate Urine Negative (Negative)
[2025-05-30 19:54] LABS: Alanine Aminotransferase 19 U/L (0-41); Albumin Level 4.2 g/dL (3.5-5.2); Alkaline Phosphatase 92 U/L (40-130); Anion Gap 18.9 (5-19); Aspartate Amino Transferase 12 U/L (0-40); Blood Urea Nitrogen 9 mg/dL (6-20); Calcium 10.4 mg/dL (8.5-10.5); Carbon Dioxide 20 mmol/L (22-29); Chloride 106 mmol/L (98-107); Globulin 3.9 g/dL (1.3-4.6); Glucose 110 mg/dL (65-115); Lipase 43 U/L (13-60); Osmolality Calculated 291 mOsm/kg (285-295); Potassium 3.9 mmol/L (3.5-5.1); Sodium 141 mmol/L (136-145); Total Protein 8.1 g/dL (6.6-8.7)
[2025-05-30 19:55] LABS: Add Urine Microscopic? YES
[2025-05-30 20:00] VITALS: BP 107/64; PULSE 75; RESP 13; O2SAT 99
[2025-05-30 20:02] LABS: Specific Gravity, Urine 1.037 (1.005-1.030)
[2025-05-30 20:09] LABS: Lactic Sepsis W/Reflex 1.7 mmol/L (0.5-2.2)
[2025-05-30 20:30] VITALS: PULSE 60; RESP 16; O2SAT 100
[2025-05-30 20:41] LABS: PCP Screen Urine Negative (Negative)
[2025-05-30] MEDS: LORazepam 1 MG/0.5 ML injection IVP (21:09)
[2025-05-30] MEDS: haloperidol inj 5 mg/mL INJ 1 mL IVP (21:09)
--- NOTE | 2025-05-30 21:31 | W.ED.GENADLT ---
HPI - General Adult General: Chief complaint: Nausea/Vomiting/Diarrhea Stated complaint: Low Back Pain, N/V Time Seen by Provider: 05/30/25 18:34 History of Present Illness: Patient is a 40-year-old male who presents to the ED with complaint of severe back pain that has been present for the past few days. The pain has worsened significantly since last night. Patient reports that he was seen in the ED yesterday and received medication that allowed him to sleep until approximately 7 AM this morning, at which point he experienced acute exacerbation of pain described as back on fire. The pain is now radiating to his right side. Patient points to his right flank area as the primary location of pain, describing it as having a hard jelly filling sensation. He reports that the pain feels similar to a gallstone attack rather than a kidney stone. Patient states that Toradol and Zofran typically help alleviate this type of pain. Patient has a history of gallstones and kidney stones. He reports having a fever but is unable to quantify the temperature. Patient's last bowel movement was a couple of days ago and was normal. He denies any urinary symptoms including dysuria or hematuria. Patient has been drinking water but has had limited oral intake. Patient has been to the ED multiple times this year for similar complaints of low back pain. Related Data Previous Rx's ?Medication ?Instructions ?Recorded ondansetron 8 mg disintegrating 8 mg PO Q8H PRN nausea and 08/08/24 tablet vomiting 5 days #15 tabs ketorolac 10 mg tablet 10 mg PO Q8H #14 tabs 08/15/24 tamsulosin 0.4 mg capsule (Flomax) 0.4 mg PO DAILY #30 caps 08/15/24 promethazine 25 mg tablet 20 mg (0.8 x 25 mg) PO Q6H PRN 08/28/24 nausea and vomiting #20 tabs amoxicillin 875 mg-potassium 1 tab PO BID 5 days #10 tabs 09/13/24 clavulanate 125 mg tablet ketorolac 10 mg tablet 10 mg PO Q8H PRN pain 10 days #30 09/13/24 tabs ondansetron 8 mg disintegrating 8 mg PO Q8H PRN nausea and 09/13/24 tablet vomiting 5 days #20 tabs cyclobenzaprine 10 mg tablet 10 mg PO Q8H PRN muscle spasm #20 05/05/25 tabs diclofenac sodium 50 mg 50 mg PO Q12H #20 tabs 05/05/25 tablet,delayed release tramadol 50 mg tablet 50 mg PO Q8H PRN pain #20 tabs 05/05/25 pantoprazole 40 mg tablet,delayed See Rx Instructions .Route 05/09/25 release .COMPLEX #60 tabs hydrocodone 5 mg-acetaminophen 325 1 tab PO Q6H PRN pain #14 tabs 05/29/25 mg tablet methocarbamol 750 mg tablet 750 mg PO Q6H PRN spasms #20 tabs 05/29/25 naproxen 500 mg tablet (Naprosyn) 500 mg PO BID PRN pain #20 tabs 05/29/25 prednisone 50 mg tablet 50 mg PO DAILY #5 tabs 05/29/25 Allergies Allergy/AdvReac Type Severity Reaction Status Date / Time topiramate (From Topamax) Allergy Unknown Verified 09/13/24 10:06 [facility] PFSH: Medical History (Updated 05/30/25 @ 21:34 by Baljeet Lezama MD) Weight gain, abnormal Morbid obesity History of MRSA infection leg and face Hypercholesteremia Depression determined by examination Abscess of lip COVID-19 07/11/2021 positive test Cellulitis Abscess of skin of right wrist Left ankle pain Surgical History History of hand surgery Reconstruction, left hand History of foot surgery History of carpal tunnel surgery Left wrist Family History Other Cancer Diabetes Social History Smoking and tobacco/nicotine status: never used tobacco/nicotine Second hand smoke exposure: Yes Alcohol intake: never Substance/Drug Use: never Lives independently: Yes Household members: spouse Marital status: Number of children: 2 Current occupational status: employed and unemployed Current gender identity: Male Course Vital Signs: Vital signs: Vital Signs Temperature 98.2 F 05/30/25 18:42 Pulse Rate 60 05/30/25 20:30 Respiratory Rate 16 05/30/25 20:30 Blood Pressure 107/64 05/30/25 20:00 Pulse Oximetry 100 05/30/25 20:30 Oxygen Delivery Me thod Room Air 05/30/25 19:44 MDM - General Adult Medical Decision Making ROS: Constitutional: Positive for fever. Gastrointestinal: Denies nausea or vomiting. Reports normal bowel movements, last one a couple days ago. Genitourinary: Denies dysuria, frequency, or hematuria. Musculoskeletal: Positive for severe right flank and lower back pain. All other systems reviewed and negative except as noted in HPI. MEDICATIONS AND ALLERGIES: Medications: Patient was prescribed hydrocodone 5mg from previous ED visit. Allergies: No known drug allergies reported. PAST HISTORICAL DATA: PMH: Fibromyalgia, gallstones, kidney stones PSH: No abdominal surgeries reported. Gallbladder still present. Social History: Patient reports marijuana use. Urine drug screen positive for opiates, benzodiazepines, cocaine, and marijuana. Patient denies cocaine use and acknowledges marijuana use. Recent opiates and benzodiazepines likely from previous ED visits. VITAL SIGNS: No specific vital signs were verbalized in the plate former other than mention of fever. PHYSICAL EXAM: General: Alert, in moderate distress due to pain. HEENT: Head normocephalic and atraumatic. Mucous membranes moist. Neck: Supple Respiratory: No increased work of breathing, No wheezing Cardiac: Regular rate and rhythm, 2+ pulses in all extremities Abdomen: Soft, non-distended, no rebound or guarding Back: Tenderness to palpation in the right flank area. Patient cries when the area is touched. Neuro: Cranial nerves grossly intact, no focal motor or sensory deficits noted INITIAL IMPRESSION AND PLAN: Given the history and presentation, the primary working diagnosis is right flank pain with possible cholecystitis versus nephrolithiasis. Additional considerations include musculoskeletal pain, pyelonephritis, and pancreatitis. Based on this initial impression I will order CT scan of the abdomen/pelvis, complete blood count, comprehensive metabolic panel, urinalysis, urine drug screen, and lactic acid. Will provide IV fluids and pain management. Will consider ultrasound of the gallbladder based on CT findings. TEST INTERPRETATIONS: CT Scan: Shows cholelithiasis with prominence of the gallbladder. Bilateral nonobstructive renal stones noted. Basilar atelectasis in the lungs. No other acute intra-abdominal pathology or ureteral pathology to explain back or flank pain. Labs: - CBC: Significant leukocytosis of 24,000. Hemoglobin 15, Hematocrit 45, Platelets 97,000 - Chemistry panel: Normal - Liver function tests: Normal - Lactic acid: Normal at 1.7 - Urinalysis: 1+ blood, 1+ ketones - Urine drug screen: Positive for opiates, benzodiazepines, cocaine, and marijuana CONSIDERED BUT NOT PERFORMED: Gallbladder ultrasound CONSIDERED but NOT DONE due to patient declining to stay for the ultrasound, expressing desire to leave against medical advice and schedule as outpatient. FINAL IMPRESSION: Based on all the above, my clinical impression is most compatible with cholelithiasis with possible cholecystitis given the marked leukocytosis, right flank pain, and CT findings of gallstones with prominent gallbladder. Incidental findings of bilateral nonobstructive renal stones. The clinical picture is not currently suggestive of acute appendicitis, bowel obstruction, or ureteral obstruction. Although other conditions were also considered, they were deemed unlikely based on the clinical information available. CLINICAL DISPOSITION: The patient's current condition is stable but at risk for worsening in my estimation and the most appropriate and indicated disposition at this time would be admission for further evaluation with gallbladder ultrasound and surgical consultation. However, patient has elected to leave against medical advice prior to completion of workup. The patient is leaving against medical advice despite having a significantly elevated white blood cell count of 24,[address] findings concerning for possible cholecystitis. I have thoroughly discussed the risks of leaving without completing the recommended gallbladder ultrasound, including progression to severe infection, sepsis, and potential need for emergency surgery if condition worsens. Patient demonstrates capacity to make this decision and understands these risks. His significant other was present during this discussion. Patient was advised to follow up with general surgery as an outpatient or return immediately for worsening symptoms. RISK STRATIFICATION AND CLINICAL DECISION RULES APPLIED: No formal clinical decision rules were applied in this case. However, the marked leukocytosis of 24,000 in the setting of right-sided abdominal/flank pain and known gallstones significantly increases the risk for cholecystitis and potential sepsis, warranting further evaluation with ultrasound and consideration for surgical intervention. CASE SUMMARY: 40-year-old male with history of gallstones and kidney stones presented with severe right flank pain for several days, worsening acutely. CT scan showed cholelithiasis with prominent gallbladder and bilateral nonobstructive renal stones. Labs revealed significant leukocytosis of 24,000 with otherwise normal studies. After consultation with Dr. Yuen from general surgery, gallbladder ultrasound was recommended to evaluate for cholecystitis. Despite counseling regarding the concerning leukocytosis and potential for serious infection, patient elected to leave against medical advice prior to ultrasound completion. Patient was advised to follow up with general surgery as an outpatient or return immediately for fever, worsening pain, vomiting, or other concerns. Patient demonstrated capacity to make this decision and understood the risks associated with leaving against medical advice. Lab Data I reviewed the patient's lab results. 05/30/25 18:02 05/30/25 18:02 Radiology Impressions Abdomen/Pelvis CT 05/30/25 19:19 IMPRESSION: 1. Cholelithiasis with prominence of the gallbladder, consider further evaluation with an ultrasound to evaluate for cholecystitis. 2. Bilateral nonobstructing renal calyceal stones. 3. Emphysematous changes suspected. 4. Bibasilar atelectasis. Laboratory Results WBC 24.44 10^3/uL (3.29-11.43) H 05/30/25 18:02 RBC 5.33 10^6/uL (3.85-5.65) 05/30/25 18:02 Hgb 15.10 g/dL (11.27-16.99) 05/30/25 18:02 Hct 45.3 % (37-53) 05/30/25 18:02 MCV 85.0 fl (82-101) 05/30/25 18:02 MCH 28.3 pg (27-33) 05/30/25 18:02 MCHC 33.3 g/dL (30-55) 05/30/25 18:02 RDW 12.8 % (12.1-15.1) 05/30/25 18:02 Plt Count 297 10^3/cmm (157-399) 05/30/25 18:02 MPV 11.5 fL (7.4-10.4) H 05/30/25 18:02 Neut % (Auto) 87.8 % 05/30/25 18:02 Lymph % (Auto) 8.0 % 05/30/25 18:02 [place] % (Auto) 3.4 % 05/30/25 18:02 Eos % (Auto) 0.0 % 05/30/25 18:02 Baso % (Auto) 0.2 % 05/30/25 18:02 Neut # (Auto) 21.46 10^3/uL (1.8-7.7) H 05/30/25 18:02 Lymph # (Auto) 2.0 10^3/uL (0.8-4.8) 05/30/25 18:02 [place] # (Auto) 0.8 10^3/uL (0.2-0.9) 05/30/25 18:02 Eos # (Auto) 0.0 10^3/uL (0.0-0.8) 05/30/25 18:02 Baso # (Auto) 0.0 10^3/uL (0.0-0.1) 05/30/25 18:02 Nucleated RBC % (auto) 0 % 05/30/25 18:02 Nucleated RBCs # 0.0 /100WBC 05/30/25 18:02 Sodium 141 mmol/L (136-145) 05/30/25 18:02 Potassium 3.9 mmol/L (3.5-5.1) 05/30/25 18:02 Chloride 106 mmol/L (98-107) 05/30/25 18:02 Carbon Dioxide 20 mmol/L (22-29) L 05/30/25 18:02 Anion Gap 18.9 (5-19) 05/30/25 18:02 BUN 9 mg/dL (6-20) 05/30/25 18:02 Creatinine 0.7 mg/dL (0.7-1.2) 05/30/25 18:02 GFR Calculation 126.2 mL/min (90-130) 05/30/25 18:02 Glucose 110 mg/dL (65-115) 05/30/25 18:02 Calculated Osmolality 291 mOsm/kg (285-295) 05/30/25 18:02 Lactic Acid 1.7 mmol/L (0.5-2.2) 05/30/25 18:02 Calcium 10.4 mg/dL (8.5-10.5) 05/30/25 18:02 Total Bilirubin 0.3 mg/dL (0.15-1.2) 05/30/25 18:02 AST 12 U/L (0-40) 05/30/25 18:02 ALT 19 U/L (0-41) 05/30/25 18:02 Alkaline Phosphatase 92 U/L (40-130) 05/30/25 18:02 Total Protein 8.1 g/dL (6.6-8.7) 05/30/25 18:02 Albumin 4.2 g/dL (3.5-5.2) 05/30/25 18:02 Globulin 3.9 g/dL (1.3-4.6) 05/30/25 18:02 Lipase 43 U/L (13-60) 05/30/25 18:02 Urine Color Dark yellow (Yellow) A 05/30/25 19:30 Urine Appearance Clear (CLEAR) 05/30/25 19:30 Urine pH 5.5 (5-7) 05/30/25 19:30 Ur Specific [place] 1.037 (1.005-1.030) H 05/30/25 19:30 Urine Protein 1+ (Negative) A 05/30/25 19: Urine Glucose (UA) Negative (Normal) 05/30/25 19: Urine Ketones 1+ (Negative) H 05/30/25 19: Urine Blood 1+ (Negative) A 05/30/25 19:30 Urine Nitrate Negative (Negative) 05/30/25 19:30 Urine Bilirubin Negative (Negative) 05/30/25 19:30 Urine Urobilinogen 1.0 mg/dL (Negative) 05/30/25 19:30 Ur Leukocyte Esterase Negative (Negative) 05/30/25 19:30 Urine RBC 6-10 /hpf (0-2) 05/30/25 19:30 Urine WBC 0-5 /hpf (0-5) 05/30/25 19:30 Ur Squamous Epith Cells 0-5 /hpf (0-5) 05/30/25 19:30 Amorphous Sediment Not Reportable 05/30/25 15:31 Urine Bacteria None seen /hpf (NONE) 05/30/25 19:30 Hyaline Casts 4.52 /lpf 05/30/25 19:30 Urine Opiates Screen Positive ng/mL (Negative) H 05/30/25 19:30 Ur Barbiturates Screen Negative ng/mL (Negative) 05/30/25 19:30 Ur Phencyclidine Scrn Negative ng/mL (Negative) 05/30/25 19:30 Ur Amphetamines Screen Negative ng/mL (Negative) 05/30/25 19:30 U Benzodiazepines Scrn Positive ng/mL (Negative) H 05/30/25 19:30 Urine Cocaine Screen Positive ng/mL (Negative) H 05/30/25 19:30 U Marijuana (THC) Screen Positive ng/mL (Negative) H 05/30/25 19:30 All radiology interpretation(s) finalized by discharge Discharge Plan Discharge Patient Disposition: Left Against Medical Advice Clinical Impression: Leukocytosis Low back pain Qualifiers: Chronicity: acute Back pain laterality: left Sciatica presence: with sciatica Sciatica laterality: sciatica of left side Qualified Code(s): M54.42 - Lumbago with sciatica, left side Condition: Stable Prescriptions: No Action ondansetron 8 mg tablet,disintegrating 8 mg PO Q8H PRN (Reason: nausea and vomiting) 5 Days Qty: 15 0RF tamsulosin [Flomax] 0.4 mg capsule 0.4 mg PO DAILY Qty: 30 1RF ketorolac 10 mg tablet 10 mg PO Q8H Qty: 14 0RF Rx Instructions: maximum total duration of 5 days from all oral, intranasal, or parenteral formulations ketorolac 10 mg tablet 10 mg PO Q8H PRN (Reason: pain) 10 Days Qty: 30 0RF ondansetron 8 mg tablet,disintegrating 8 mg PO Q8H PRN (Reason: nausea and vomiting) 5 Days Qty: 20 0RF amoxicillin-pot clavulanate 875-125 mg tablet 1 tab PO BID 5 Days Qty: 10 0RF pantoprazole 40 mg tablet,delayed release (DR/EC) See Rx Instructions .ROUTE .COMPLEX Qty: 60 0RF Dose Instruction: Take 1 tablet by mouth twice daily Rx Instructions: Take 1 tablet by mouth twice daily promethazine 25 mg tablet 20 mg PO Q6H PRN (Reason: nausea and vomiting) Qty: 20 0RF cyclobenzaprine 10 mg tablet 10 mg PO Q8H PRN (Reason: muscle spasm) Qty: 20 0RF tramadol 50 mg tablet 50 mg PO Q8H PRN (Reason: pain) Qty: 20 0RF diclofenac sodium 50 mg tablet,delayed release (DR/EC) 50 mg PO Q12H Qty: 20 0RF hydrocodone-acetaminophen 5-325 mg tablet 1 tab PO Q6H PRN (Reason: pain) Qty: 14 0RF methocarbamol 750 mg tablet 750 mg PO Q6H PRN (Reason: spasms) Qty: 20 0RF naproxen [Naprosyn] 500 mg tablet 500 mg PO BID PRN (Reason: pain) Qty: 20 0RF prednisone 50 mg tablet 50 mg PO DAILY Qty: 5 0RF Referrals: Krista Rushing FNP [Primary Care Provider, Unknown] Patient Instructions: Back Pain (ED) Activity Restrictions/Additional Instructions: DISCHARGE INSTRUCTIONS: DIAGNOSIS: Cholelithiasis (gallstones) with possible cholecystitis and incidental renal stones FOLLOW-UP INSTRUCTIONS: 1. Schedule an appointment with General Surgery (Dr. Corona, Dr. Upton, or Dr. Wolf) within 1-2 days for evaluation and to arrange gallbladder ultrasound. 2. If you cannot get an appointment within this timeframe, return to the Emergency Department immediately. MEDICATIONS: - Continue your home medications as prescribed - Take pain medications as directed from your previous visit DIET: - Maintain good hydration with clear fluids - Follow a low-fat diet to reduce gallbladder irritation ACTIVITY: - Rest as needed - Avoid strenuous activity until evaluated by surgeon RETURN TO THE EMERGENCY DEPARTMENT IMMEDIATELY IF YOU EXPERIENCE: - Fever over 101?F - Worsening abdominal or back pain - Persistent vomiting - Yellowing of skin or eyes (jaundice) - Inability to keep fluids down - Confusion or extreme fatigue ADDITIONAL INSTRUCTIONS: You have left the hospital against medical advice before completing all recommended testing. Your white blood cell count is significantly elevated at 24,000, which could indicate a serious infection. It is extremely important that you follow up with a surgeon promptly or return to the Emergency Department if your symptoms worsen in any way. Print Language: Nicaraguan Coding Level of Care Code ED Director Of Volunteer Services for Adal Suarez
== END 2025-05-30 21:31 | disposition left against medical advice (07) ==
PROVIDERS: Emergency Provider Student in an Organized Health Care Education/Training Program; PCP Nurse Practitioner Family
DX: M54.42 Lumbago with sciatica, left side (principal); D72.829 Elevated white blood cell count, unspecified
CPT/HCPCS: 36415; 74176; 80053; 80306; 81001; 83605; 83690; 85025; 87040; 96374; 96375; 99285; J0780; J1200; J1630; J2060; J7030

== ENCOUNTER 2025-06-06 04:12 | Emergency (ER) | payer BC, MEDICAID, SELFPAY ==
--- OUTSIDE RECORDS SUMMARY | 2013-07-05 08:11 | XMS_ITS | Continuity of Care Document ---
Author Organization [facility] Address [address] [place] [address] Phone Care Team Providers Care Renal Dialysis Rn Name Role Phone Baljeet Elias MD Unavailable Unavailable Advance Directives Directive Yes / No Effective Date File Name No Information Encounters Encounter Description Practice Location Reason(s) For Visit Diagnoses Date Provider Providers Copied on Encounter [facility], [address], [place], [place], [id number], [place] tel:[phone] [facility] No Information 3 Curt Deolng. [address], [address], [place], [place], [id number] , [place]. tel: [phone] Family History Family Member Type Diagnosis Age At Onset No Information Payers Payer name Insurance type Covered alliance party ID Authoriza tion(s) No Information Social History Type Description Quantity Date Captured Comments Sex Male Smoking Status No Information Chief Complaint And Reason For Visit No Information Reason For Referral Reason For Referral No Information History Of Present Illness Encounter Date Complaint History Of Prese nt Illness No Information Functional Status Date Functional Assessmen t No Information Instructions Date Instruction Additional Infor mation No Information Assessments Type Assessment Date No Information Patient Care Teams Name Effective Dates (start - stop) Status Members No Information
--- OUTSIDE RECORDS SUMMARY | 2024-10-02 08:30 | XMS_ITS ---
Author Organization [facility] Address [address] [place] [address] Care Team Providers Care Engine Lathe Tender Name Role Phone Krista Rushing APRN Primary Care Provider NICOLETTE Sevilla Unavailable [phone] REASON FOR VISIT Kidney Stone Encounters Encounter Location Date Provider Diagnosis [facility] [address] [facility] [place] [address] 10/02/2024 NICOLETTE CASTILLO Plan Of Treatment No Information Progress Notes * Maegan ARRINGTONOB:1985 (40 yo M)Acc No.[id number]:10/02/2024 Progress Notes Patient: Alvaro SOLOMON Provider: KING Justice :1985 A ge:39 Y S ex:Male Date:10/02/2024 Address:[address] [place], [place] [id number] Pcp:Krista Rushing APRN Subjective: * Chief Complaints: * 1 . Kidney Stone. * Medical History: Objective: * Vitals: Assessment: Plan: * Treatment: * Billing Information: * Visit Code: * Procedure Codes: * Electronic signature of NICOLETTE CASTILLO APRN on 06/06/2025 at 04:22 AM CDT Sign off status: Pending * Provider: KING Justice Date: 12/02/2023 Generated for Ryan sevilla/Ignacio/Annabelleitting on: 06/06/2025 04:22 AM CDT
[2025-06-06 04:15] VITALS: BP 142/91; PULSE 96; RESP 16; TEMP 37.3; O2SAT 97; BMI 6248.8
--- NOTE | 2025-06-06 04:19 | XRR_ITS ---
PROCEDURE INFORMATION: Exam: XR Right Shoulder Exam date and time: 06/06/2025 4:33 AM Age: 40 years old Clinical indication: Injury or trauma; Fall; Blunt trauma (contusions or hematomas); Shoulder; Right; Additional info: Fall, pain TECHNIQUE: Imaging protocol: Radiologic exam of the right shoulder. Views: 2 or more views. COMPARISON: CR XR chest 1V portable [id number] 05/19/2024 9:36 AM FINDINGS: Bones/joints: Normal. No fracture or dislocation. Soft tissues: Normal. XR/XR shoulder RT min 2V* [id number] IMPRESSION: No acute findings.
--- NOTE | 2025-06-06 04:19 | XRR_ITS ---
PROCEDURE INFORMATION: Exam: XR Left Wrist Exam date and time: 06/06/2025 4:24 AM Age: 40 years old Clinical indication: Injury or trauma; Fall; Blunt trauma (contusions or hematomas); Wrist; Left; Additional info: Injury, fall, pain TECHNIQUE: Imaging protocol: Radiologic exam of the left wrist. Views: 3 or more views. COMPARISON: No relevant prior studies available. FINDINGS: Bones/joints: Normal. No fracture or dislocation. Soft tissues: Normal. XR/XR wrist LT min 3V* [id number] IMPRESSION: No acute findings.
--- NOTE | 2025-06-06 04:19 | XRR_ITS ---
PROCEDURE INFORMATION: Exam: XR Right Wrist Exam date and time: 06/06/2025 4:30 AM Age: 40 years old Clinical indication: Injury or trauma; Fall; Blunt trauma (contusions or hematomas); Wrist; Right; Additional info: Fall, pain TECHNIQUE: Imaging protocol: Radiologic exam of the right wrist. Views: 3 or more views. COMPARISON: No relevant prior studies available. FINDINGS: Bones/joints: Normal. No fracture or dislocation. Soft tissues: Normal. XR/XR wrist RT min 3V* [id number] IMPRESSION: No acute findings.
[2025-06-06 04:22] VITALS: BP 110/76; PULSE 104; RESP 16; O2SAT 95
--- OUTSIDE RECORDS SUMMARY | 2025-06-06 04:22 | XMS_ITS | Data Portability ---
Author Organization ROYA Gallagher [facility], [facility] Address [address] [place] [address] Assessment Encounter Date Assessment Date Assessment LastModified [...] 2023 024 [facility], [address], [facility], [place], [address], 4 15:37:13 culture, urine 2023 024 [employer] [facility], [address] [facility] [address], [address] [place], [address], 4 01:42:14 Referral general surgeon referral 2023 024 [email or web address] 2 Didier Gupta MD, [address] [facility], [facility], [place], [address], 4 16:03:17 urologist referral 2023 024 [email or web address] 2 [facility], [address], [place], [address], 10:32:54 Procedures None recorded. Surgeries None recorded. Imaging None recorded. Medication Orders ketorolac 30 mg/mL (1 mL) injection solution 2023 024 [email or web address] Not available 15:32:42 Patient TargetsNo targets recorded. Patient Instructions Encounter Date Encounter Id Patient Instructions Last Modified By Organization Details Last Modified Time 08/22/2024 [id number] Call or return for questions or concerns. Not available 08/22/2024 15:02:16 Reason for Referral Urologist Referral for Histo ry of calculus of kidney Referring Physician: Krista Rico, [facility], Encounter Date: 08/22/2024 General Surgeon Referral for Cholelithiasis without obstruction Referring Physician: Krista Rico [facility], Encounter Date: 08/22/2024 Results Created Date Observation Date Name Description Value Unit Range Abnormal Flag Note LastModifiedBy Organization Detail LastModifiedTime 08/22/2008/22/2024 URINA LYSIS WITH MICRO color YELLOW Not Available [facility] [address] [facility] [address], [place], [address], 08/22/2024 15:37:13 08/22/2008/22/2024 URINA LYSIS WITH MICRO clarity CLEAR Not Available [facility] [address] [facility] [address], [place], [address], 08/22/2024 15:37:13 08/22/2008/22/2024 URINA LYSIS WITH MICRO glu NEGATI VE Not Available [facility] [address] [facility] [address], [place], [address], 08/22/2024 15:37:13 08/22/2008/22/2024 URINA LYSIS WITH MICRO bili NEGATI VE Not Available [facility] [address] [facility] [address], [place], [address], 08/22/2024 15:37:13 08/22/2008/22/2024 URINA LYSIS WITH MICRO ket NEGATI VE Not Available [facility] [address], [place], [address], 08/22/2024 15:37:13 08/22/20 24 08/22/2024 URINA LYSIS WITH MICRO S.g 1.025 1.005- 1.025 Not Available [facility] [address], [place], [address], 08/22/2024 15:37:13 08/22/2008/22/2024 URINA LYSIS WITH MICRO pH 6.5 5.0-7. 0 Not Available [facility] [address], [place], [address], 08/22/2024 15:37:13 08/22/2008/22/2024 URINA LYSIS WITH MICRO pro NEGATI VE Not Available [facility] [address], [place], [address], 08/22/2024 15:37:13 08/22/2008/22/2024 URINA LYSIS WITH MICRO uro 0.2 Not Available [facility] [address], [place], [address], 08/22/2024 15:37:13 08/22/2008/22/2024 URINA LYSIS WITH MICRO nit NEGATI VE Not Available [facility] [address], [place], [address], 08/22/2024 15:37:13 08/22/2008/22/2024 URINA LYSIS WITH MICRO blo TRACE abnormal Not Available [facility] [address], [place], [address], 08/22/2024 15:37:13 08/22/2008/22/2024 URINA LYSIS WITH MICRO nadja NEGATI VE Not Available [facility] [address] [facility] [address], [place], [address], 08/22/2024 15:37:13 08/22/20 24 08/22/2024 URINA LYSIS WITH MICRO WBC NEGATI VE Not Available [facility] [address] [facility] [address], [place], [address], 08/22/2024 15:37:13 08/22/2008/22/2024 URINA LYSIS WITH MICRO RBC 6-8 abnormal Not Available [facility] [address] [address], [place], [address], 08/22/2024 15:37:13 08/22/2008/22/2024 URINA LYSIS WITH MICRO epi cells NEGATI VE Not Available [facility] [address] [address], [place], [address], 08/22/2024 15:37:13 08/22/2008/22/2024 URINA LYSIS WITH MICRO bacteria 2+ MUCUS THREAD S abnormal Not Available [facility] [address] [address], [place], [address], 08/22/2024 15:37:13 08/22/2008/22/2024 URINA LYSIS WITH MICRO other NEGATI VE Not Available [facility] [address] [address], [place], [address], 08/22/2024 15:37:13 08/22/2008/24/2024 CULTU RE, URINE , ROUTI NE culture, urine, routine SEE NOTE CULTU RE, URINE , ROUTI NE Micro Numbe r: [id number] Test Statu s: Final Speci men Sourc e: Urine Speci men Quali ty: Adequ ate Resul t: No Growt h Not Available [employer] [facility] [address] , [place], [address], 08/24/2024 01:42:13 Result Notes None recorded. Problems Name Problem SNOMED Code Status Onset Date Resolution Date Notes Provider Name and Address Organization Details Recorded Time Fibromyalgia 984891463 Active 2023 BOUBACAR kruse [facility], MadaiLCinthya 4 14:16:23 Carpal tunnel syndrome 13495277 Active 2023 BOUBACAR kruse [facility], MadaiLRomieCRomie 4 14:16:34 History of calculus of kidney 162196232 Active 2023 BOUBACAR kruse [facility], AleidaCRomie 4 14:16:48 Steatotic liver disease 803898448 Active 2023 BOUBACAR kruse [facility], MadaiLRomieCRomie 4 14:16:59 Chronic depression 569018096 Active 2024 BOUBACAR kruse [facility], MadaiLRomieCRomie 5 10:38:18 Problem Notes None recorded. Procedures Surgical History Date Name Laterality Status Provider Name and Address Organization Details Recorded Time 5 CT of abdomen completed [facility]ACAR [facility] 05/31/2025 18:15:13 5 plain X-ray of bone of pelvis and bone of hip joint region completed [facility]OUBACAR [facility] Nathaniel marquez [facility] LRomieLRomieCRomie 05/30/2025 10:40:[address] of head [facility] 11/01/2024 20:53:[address] of abdomen completed BOUBACAR PRY[facility] Nathaniel [facility] 08/26/2024 13:10:24 Carpal tunnel surgery completed [facility]BACAR [facility] Nathaniel [facility], [place] 08/22/2024 14:21:45 foot repair completed BOUBACAR CADE [facility], [place] 08/22/2024 14:22:30 Imaging Results None recorded. Procedure Notes None recorded. Medical Equipment None Reported. Allergies Allergen ID Allergen Name Allergen Category Reaction Reaction Severity Criticality Documentation Date Start Date Code Code System Note Provider Name and Address Organization Details Recorded Time 05607 Topamax medicatio n Not available Not available Not available 08/22/2024 15728 3 RxNorm I freak ed out BOUBACAR CADE [facility], MadaiLRomieCRomie 4 14:16:01 Medications Name Sig Start Date [...] Updated DateTime 4 182.88 cm 42.6 kg/m2 135588 g 98 % 98 % 68 /min 18 /min 118/76 mm[Hg] BOUBACAR CADE [facility], [place] 14:15:34 Social History Question Answer Notes LastModified by Organizat ion Details LastModified Time Tobacco Smoking Status Never Smoker BOUBACAR CADE [facility], [facility] 08/22/2024 14:20:28 What Is Your Level Of Caffeine Consumption? Occasional [email or web address] Information not available 08/22/2024 What Is Your Relationship Status? [email or web address] Information not available 08/22/2024 Sex: Unknown Functional Status Question Answer Note LastModified by Organizat ion Details LastModified Time Do you use any illicit or recreational drugs? Yes Marijuana gummies [email or web address] Information not available 08/22/2024 What is your level of alcohol consumption? None [email or web address] Information not available 08/22/2024 Are you currently employed? Yes [employer] Information not available 08/22/2024 Are you able to care for yourself? Yes [email or web address] Information not available 08/22/2024 Mental Status None recorded. Family History Relationship Description Onset Age of this Age Resolved Age Notes LastModified by Organization Details LastModified Time Mother Malignant tumor of cervix [email or web address] Not available 08/22 14:18:29 Father Type 2 diabetes mellitus [email or web address] Not available 08/22 14:18:55 Father Essential hypertension [email or web address] Not available 14:19:03 Father Chronic kidney disease [email or web address] Not available 08/22 14:19:10 Father Heart disease age 41 [email or web address] Not available 08/22/2024 14:19:26 Medical History Condition Response Kidney Stones Y Depression Y Anxiety Disorder Y Headaches Y Fibromyalgia Y Past Encounters Encounter ID Performer Location Encounter Start Date Encounter Closed Date Diagnosis/Indication Diagnosis SNOMED-CT Code Diagnosis ICD10 Code Diagnosis Note [id number] AARON CHAUHAN BANNER MD [facility] ([facility]) [address] [place] [address] 08/22/2024 13:53:37 08/23/2024 10:27:04 History of calculus of kidney 880974967 Z87.442 Cholelithi asis without obstruction 31234399 K80.20 Health Concerns Section Related Observation LastModified by Organization Detai ls LastModified Time None Recorded Concern Status LastModified by Organization Details LastModified Time None Recorded Advance Directives Directive None Recorded Payers Insurance Date Sequence Insurance Name Policy Number Policy Lloyd Covered Member ID Lloyd Member ID Guarantor Name 05/16/2025 2 ARNOLD Arrington [id number] Alvaro Arrington 03/06/2025 [facility] (MEDICAID HMO) Alvaro Arrington [id number] Alvaro [place] 05/16/2025 2 [place] [id number] Alvaro Arrington [id number] Alvaro [place] 05/16/2025 1 [facility] (MEDICAID HMO) Alvaro Arrington [id number] Alvaro Arrington Notes Date Note Type Note Provider Name and Address Organization Details Recorded Time 08/22/2024 text/html LUTSReported bypatient.Location :bladder Quality:aching; burning; pressure Severity:worsening Timing:intermitten t Context:history of kidney stones KRISTA RICO, [facility] [place], [address], [facility] 08/24/2024 09:06:38
--- OUTSIDE RECORDS SUMMARY | 2025-06-06 04:22 | XMS_ITS | Patient Health Record ---
Author Organization [facility] Address [address] [place] [address] Care Team Providers Care Client Finance Analyst Name Role Phone Krista Rushing APRN Primary Care Provider UnavailNICOLETTE Bojorquez [phone] Reason For Referral No Information Encounters Encounter Location Date Provider Diagnosis [facility] [address] [place] [address] 09/13/2024 NICOLETTE CASTILLO Plan Of Treatment No Information Insurance Providers Payer Name Payer Address Payer Phone Subscriber Number Group Number Insured Name Patient Relationship to Insured Coverage Start Date Coverage End Date [facility] Health Plan [address] [place], [place] [id number] Alvaro Arrington Self - patient is the insured
[2025-06-06 04:52] VITALS: BP 125/83; PULSE 109; O2SAT 94
--- NOTE | 2025-06-06 05:11 | XRR_ITS ---
PROCEDURE INFORMATION: Exam: XR Right Knee Exam date and time: 06/06/2025 5:13 AM Age: 40 years old Clinical indication: Injury or trauma; Fall; Blunt trauma; Knee; Right; Additional info: Fall, contusion TECHNIQUE: Imaging protocol: Radiologic exam of the right knee. Views: 1 or 2 views. COMPARISON: No relevant prior studies available. FINDINGS: Bones/joints: Normal. No fracture or dislocation. Soft tissues: Normal. XR/XR knee RT 1-2V [id number] IMPRESSION: No acute findings.
[2025-06-06 05:22] VITALS: BP 126/78; PULSE 68; O2SAT 95
[2025-06-06 05:30] VITALS: BP 126/79; PULSE 91; O2SAT 96
--- NOTE | 2025-06-06 05:40 | ED_ITS ---
HPI - Fall General: Chief Complaint: Fall Stated Complaint: FALL Time Seen by Provider: 06/06/25 04:13 History of Present Illness: Patient is a tearful 40-year-old male seen for various aches and pains which she states came on after sustaining several falls. He states that his floor is concrete and that it was wet and he fell striking his right knee, right hip, and bilateral wrists. he fell mostly on the right side and also has right shoulder pain as a result. He rates the pain at 8 of 10, worse with motion and better with rest. He has tried [id number] medication without relief. He denies striking his head and denies antecedent chest pain, lightheadedness, recent sickness or fever. Related Data Previous Rx's ?Medication ?Instructions ?Recorded ondansetron 8 mg disintegrating 8 mg PO Q8H PRN nausea and 08/08/24 tablet vomiting 5 days #15 tabs ketorolac 10 mg tablet 10 mg PO Q8H #14 tabs tamsulosin 0.4 mg capsule (Flomax) 0.4 mg PO DAILY #30 caps 08/15/24 promethazine 25 mg tablet 20 mg (0.8 x 25 mg) PO Q6H P RN 08/28/24 nausea and vomiting #20 tabs amoxicillin 875 mg-potassium 1 tab PO BID 5 days #10 t abs 09/13/24 clavulanate 125 mg tablet ketorolac 10 mg tablet 10 mg PO Q8H PRN pain 10 day s #30 09/13/24 tabs ondansetron 8 mg disintegrating 8 mg PO Q8H PRN nausea and 09/13/24 tablet vomiting 5 days #20 tabs cyclobenzaprine 10 mg tablet 10 mg PO Q8H PRN muscle s pasm #20 05/05/25 tabs diclofenac sodium 50 mg 50 mg PO Q12H #20 tabs 05/05 tablet,delayed release tramadol 50 mg tablet 50 mg PO Q8H PRN pain #20 ta bs 05/05/25 pantoprazole 40 mg tablet,delayed See Rx Instructions .Route 05/09/25 release .COMPLEX #60 tabs hydrocodone 5 mg-acetaminophen 325 1 tab PO Q6H PRN pa in #14 tabs 05/29/25 mg tablet methocarbamol 750 mg tablet 750 mg PO Q6H PRN spasms # 20 tabs 05/29/25 naproxen 500 mg tablet (Naprosyn) 500 mg PO BID PRN pa in #20 tabs 05/29/25 prednisone 50 mg tablet 50 mg PO DAILY #5 tabs 05/29 Allergies Allergy/AdvReac Type Severity Reaction Status Date / Time topiramate (From Topamax) Allergy Unknown Verified 06/06/25 04:22 PFSH ED PFSH: Medical History (Updated 06/06/25 @ 04:55 by Vazquez Vincent MD) Weight gain, abnormal Morbid obesity History of MRSA infection leg and face Hypercholesteremia Depression determined by examination Abscess of lip COVID-19 07/11/2021 positive test Cellulitis Abscess of skin of right wrist Left ankle pain Surgical History History of hand surgery Reconstruction, left hand History of foot surgery History of carpal tunnel surgery Left wrist Family History Other Cancer Diabetes Social History Smoking and tobacco/nicotine status: never used tobacco/nicotine Second hand smoke exposure: Yes Alcohol intake: never Substance/Drug Use: never Lives independently: Yes Household members: spouse Marital status: Number of children: 2 Current occupational status: employed and unemployed Current gender identity: Male Physical Exam Const: COMMON NORMALS: no acute distress, patient oriented x3 and alert HENMT: COMMON NORMALS: normocephalic and atraumatic HEAD & SCALP: normocephalic and atraumatic Eye: COMMON NORMALS: Equal, round and reactive pupils present, EOMs intact bilaterally and no scleral icterus PUPIL: Yes Equal, round and reactive pupils present Resp: COMMON NORMALS: normal respiratory effort and No retractions Cardio: COMMON NORMALS: regular rhythm and No murmurs present (Cardio) RHYTHM: regular rhythm OTHER: Tachycardic GI: COMMON NORMALS: Normal to inspection, nondistended, normoactive bowel sounds present, Soft to palpation and non-tender PALPATION: Yes Soft to palpation Extremity: NARRATIVE EXTREMITY EXAM: no obvious deformity of the bilateral shoulders, elbows, wrists, hands, knees, hips, ankles. He has decreased range of motion of the bilateral wrists and right shoulder and right knee and right hip secondary to pain though motion is grossly intact. Neuro: COMMON NORMALS: patient oriented x3 SENSORIUM/ORIENTATION: Yes alert OTHER: Reported numbness of the left palm however sensation is intact. Skin: NARRATIVE SKIN EXAM: Multiple bruises at multiple sites including the right upper arm, right knee, bilateral shins. Bruises are in various stages of healing. Course Vital Signs: Vital signs: Vital Signs Temperature 99.1 F 06/06/25 04:15 Pulse Rate 68 06/06/25 05:22 Respiratory Rate 16 06/06/25 04:22 Blood Pressure 126/78 06/06/25 05:22 Pulse Oximetry 95 06/06/25 05:22 Oxygen Delivery Me thod Room Air 06/06/25 04:15 MDM - Fall Medical Decision Making Patient remained hemodynamically stable throughout ED course. He has various aches and pains resulting from a fall, however x-rays show no evidence of fracture or dislocation. He was given Tylenol and will be discharged in stable condition. All radiology interpretation(s) finalized by discharge Discharge Plan Discharge Patient Disposition: Home Clinical Impression: Fall, Acute pain of both wrists, Acute pain of right shoulder Condition: Stable Prescriptions: No Action ondansetron 8 mg tablet,disintegrating 8 mg PO Q8H PRN (Reason: nausea and vomiting) 5 Days Qty: 15 0RF tamsulosin [Flomax] 0.4 mg capsule 0.4 mg PO DAILY Qty: 30 1RF ketorolac 10 mg tablet 10 mg PO Q8H Qty: 14 0RF Rx Instructions: maximum total duration of 5 days from all oral, intranasal, or parenteral formulations ketorolac 10 mg tablet 10 mg PO Q8H PRN (Reason: pain) 10 Days Qty: 30 0RF ondansetron 8 mg tablet,disintegrating 8 mg PO Q8H PRN (Reason: nausea and vomiting) 5 Days Qty: 20 0RF amoxicillin-pot clavulanate 875-125 mg tablet 1 tab PO BID 5 Days Qty: 10 0RF pantoprazole 40 mg tablet,delayed release (DR/EC) See Rx Instructions .ROUTE .COMPLEX Qty: 60 0RF Dose Instruction: Take 1 tablet by mouth twice daily Rx Instructions: Take 1 tablet by mouth twice daily promethazine 25 mg tablet 20 mg PO Q6H PRN (Reason: nausea and vomiting) Qty: 20 0RF cyclobenzaprine 10 mg tablet 10 mg PO Q8H PRN (Reason: muscle spasm) Qty: 20 0RF tramadol 50 mg tablet 50 mg PO Q8H PRN (Reason: pain) Qty: 20 0RF diclofenac sodium 50 mg tablet,delayed release (DR/EC) 50 mg PO Q12H Qty: 20 0RF hydrocodone-acetaminophen 5-325 mg tablet 1 tab PO Q6H PRN (Reason: pain) Qty: 14 0RF methocarbamol 750 mg tablet 750 mg PO Q6H PRN (Reason: spasms) Qty: 20 0RF naproxen [Naprosyn] 500 mg tablet 500 mg PO BID PRN (Reason: pain) Qty: 20 0RF prednisone 50 mg tablet 50 mg PO DAILY Qty: 5 0RF Discharge Orders: Discharge ED (Routine); Ordered 06/06/25 Ordered By: Vazquez Vincent Referrals: Krista Rushing FNP [Primary Care Provider, Unknown] Discharge Diet: Usual diet Discharge Activity: Increase activity as tolerated Patient Instructions: Contusion in Adults (ED), Pain Management, Patient Portal & Jose Instructions Activity Restrictions/Additional Instructions: Fortunately, x-rays of your wrist, knee, and shoulder show no evidence of fracture or dislocation. Please take [id number] medications for your pain. Print Language: Vietnamese Coding Level of Care Code ED Assistant Accounting Manager for Adal Suarez
[2025-06-06 06:03] VITALS: BP 140/76; PULSE 88; RESP 19; O2SAT 96
== END 2025-06-06 06:00 | disposition home or self-care (01) ==
PROVIDERS: Emergency Provider Student in an Organized Health Care Education/Training Program; PCP Nurse Practitioner Family
DX: M25.561 Pain in right knee (principal); M25.531 Pain in right wrist; M25.532 Pain in left wrist; W01.0XXA Fall on same level from slipping, tripping and stumbling without subsequent striking against object, initial encounter
CPT/HCPCS: 73030; 73110; 73560; 99284; J9999

== ENCOUNTER → 2025-08-07 14:52 | Outpatient (BNVA) | payer BC, MEDICAID, SELFPAY | PROVIDERS: PCP Nurse Practitioner Family | DX: R43.0 Anosmia (principal); R39.9 Unspecified symptoms and signs involving the genitourinary system | CPT/HCPCS: 81000; 87426 ==